=== PATIENT | female | born 1935 | race Caucasian/White ===

== ENCOUNTER 2022-03-11 07:46 | Outpatient (CLI) | payer MEDICARE, SELFPAY | END 2022-03-11 07:47 | disposition home or self-care (01) | LOC: RAD 07:47 | PROVIDERS: PCP Internal Medicine; Visit Provider Internal Medicine | DX: I71.2 Thoracic aortic aneurysm, without rupture (principal); I34.0 Nonrheumatic mitral (valve) insufficiency; I07.1 Rheumatic tricuspid insufficiency | CPT/HCPCS: 93306 ==

== ENCOUNTER 2022-03-24 09:45 | Outpatient (RCR) | payer MEDICARE, SELFPAY ==
--- NOTE | 2022-03-14 15:13 | PT.OPEX ---
PT [place] Outpatient Eval PT [facility] Outpatient Eval Start: 03/14/22 14:17 Freq: Status: Active Protocol: Document 03/14/22 14:25 NMK (Rec: 03/14/22 15:10 NMK [id number]) E-signed By Francis Israel DPT Physical Therapy Outpatient Evaluation Insurance Information Recert Due Date 06/14/22 Insurance Name Medicare B Medical Diagnosis Cervicalgia; Other chronic pain Treating Diagnosis Neck pain; R shoulder pain; Decreased R shoulder ROM Referring Neema Ventura MD Subjective Subjective 86 y.o. female pt presents with primary c/o R shoulder pain and neck pain that began in April of 2020 after being hospitalized with COVID. She reports after she got home her neck and shoulder began to bother her, with her shoulder pain being more significant than her neck pain. Her pain is significant at night and it hurts to lay on her R side because of it. It also makes sleeping hard because she wakes up at night from the pain. Currently, aggravating activities include sleeping, laying on her side, reaching behind her back, and lifting. She reports that she also feels challenged in her ability to complete her exercises classes as she does get pain in that shoulder when working out. She denies numbness, tingling, or any changes in sensation in her L UE at this time. She has tried self massage and it can sometimes help in moment. Current Work Status Retired Precautions Therapy Limitations/Systems Review Not Limited Objective Other/Pertinent Objective MMT: L/R Shoulder flexion: 5/4* Shoulder abduction: 5/4* Shoulder 90-90 ER: 5/4+ Shoulder 90-90 IR: 5/4+ Shoulder ER: 5/5 Shoulder IR: 5/5 *indicates pain present with resisted testing ROM Shoulder flexion L: WNL and pain free R: 125 degrees Shoulder abduction L: 150+ R: 150+ Shoulder IR and ER are WNL in bilateral LE at this time. Palpation: TTP present over R periscapular muscles and anterior cuff/biceps tendon area. 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 Impairments related to current health condition include shoulder pain, shoulder weakness, and decreased shoulder ROM. These impairments contribute to decreased ability to perform ADL's involving her R shoulder including reaching, lifting, pushing, and sleeping. Examination of body systems including structures, functions, activity limitations and participation restrictions have been addressed. Skilled PT is recommended in order to improve the patient's mobility and restore their baseline level of function. Within session patient tolerating shoulder flexion exercises as well as scapular strengthening exercises without reports of increased pain. Primary Functional Limitations Sleeping, reaching behind, lifting Plan of Care Rehabilitation Potential Good Physical Therapy Goals At or before 06/14/2022... 1. Pt will report <3/10 pain while sleeping at night and wake up less than 3 times per night from pain to show enhanced sleep quality 2. Pt will demonstrate shoulder active range of motion >150 degrees in involved upper extremity in order to show functional ability to reach into cabinets at home 3. Pt will participate in her exercises class without limitations and report less than 3/10 pain throughout 4. Pt will be independent in HEP in order to show ability to self manage condition after discharge Coordination/Communication With Referral Source Treatment Plan/Direct Interventions Joint Mobilization,Manual Therapy,Self-Care/Home Management,Therapeutic Exercises Frequency/Duration 1-2 per week for 8-12 weeks Patient Will Be Discharged From Therapy Completion of LTG(s),Skills Plateau,Independent w/HEP, Independently Progressing Evaluation Billing Untimed Code Treatment Minutes 25 Complexity Moderate Certification Information Physician Comment/Change Comment or Changes Physician NPI Number #
== END 2022-05-05 14:25 | disposition home or self-care (01) ==
PROVIDERS: PCP Internal Medicine; Visit Provider Internal Medicine
DX: M54.2 Cervicalgia (principal); Z51.89 Encounter for other specified aftercare
CPT/HCPCS: 97110; 97162

== ENCOUNTER 2022-05-12 13:39 | Outpatient (CLI) | payer MEDICARE, SELFPAY | END 2022-05-12 13:40 | disposition home or self-care (01) | LOC: NFLDUCREF 05-20 08:58 | PROVIDERS: PCP Internal Medicine; Visit Provider Student in an Organized Health Care Education/Training Program | DX: R35.0 Frequency of micturition (principal); N39.0 Urinary tract infection, site not specified | CPT/HCPCS: 87086 ==

== ENCOUNTER 2022-05-15 14:52 | Emergency (ER) | payer MEDICARE, SELFPAY ==
[2022-05-15 14:59] VITALS: BP 135/64; PULSE 71; RESP 14; TEMP 36.2; O2SAT 100; BMI 20.5
[2022-05-15 15:20] LABS: Appearance Urine Clear (Clear); Bilirubin Urine Negative (Negative); Blood Urine Negative (Negative); Color Urine Yellow (Yellow); Glucose Urine Negative (Negative); Ketones Urine Negative (Negative); Leukocyte Esterase Urine 3+ (Negative); Nitrite Urine Negative (Negative); Protein Urine Negative (Negative); pH Urine 6.5 (5.0-8.5)
--- NOTE | 2022-05-15 15:31 | ED.ABDPAIN ---
HPI - Abdominal Pain General Date Seen: 05/15/22 Chief Complaint: Abdominal Pain Stated Complaint: Lower Abdominal Pain Time Seen by Provider: 05/15/22 15:00 Source: patient Mode of arrival: ambulatory Limitations: no limitations History of Present Illness HPI narrative: Patient is a very nice lady seen in room 7 she has a history of suprapubic discomfort, that is been of ongoing for the last 3-4 days, she was seen in urgent care 3 days ago and started on Macrobid for this. She said this is really not changed at all the only thing that is help this she took some Tylenol before she came in. She describes the pain as crampy lower down suprapubic in nature, with no radiation. She has had no fevers or chills no, back pain no diarrhea, no redness, no coughing wheezing shortness of breath or sore throat. She has had multiple UTIs in the past and antibiotic seemingly of always worked well though she has never been on Macrobid previously MD elicited complaint: abdominal pain Pertinent past history: past UTI Onset (ago): day(s) (4) Pain Consistency: constant Location: suprapubic Severity: moderate Quality: aching and fullness Radiation: none Migration to: no migration Exacerbating factors: movement Relieving factors: medication (acetaminophen) Associated symptoms: denies other symptoms Treatments prior to arrival: other (acetaminophen) Related Data Home Medications Medication Instructions Recorded Confirmed amlodipine 2.5 mg tablet 2.5 mg PO .Bedtime 02/28/22 05/12/22 ascorbic acid (vitamin C) 500 mg 1 g PO DAILY 02/28/22 05/12/22 tablet aspirin 81 mg tablet,delayed 81 mg PO DAILY 02/28/22 05/12/22 release calcium carbonate 500 mg calcium 600 mg PO DAILY 02/28/22 05/12/22 (1,250 mg) tablet latanoprost 0.005 % eye drops 1 drp ophthalmic (eye) .Bedtime 02/28/22 05/12/22 melatonin 3 mg capsule 3-5 mg PO .Bedtime as needed PRN 02/28/22 05/12/22 simvastatin 10 mg tablet 10 mg PO .Bedtime 02/28/22 05/12/22 Previous Rx's Medication Instructions Recorded nitrofurantoin 100 mg PO Q12H 5 days #10 caps 05/12/22 monohydrate/macrocrystals 100 mg capsule (Macrobid) cephalexin 250 mg tablet 250 mg PO TID 7 days #21 tabs 05/15/22 Allergies Allergy/AdvReac Type Severity Reaction Status Date / Time lidocaine Allergy Severe shaking Verified 05/10/22 13:31 Sulfa drugs Allergy Unknown unknown Uncoded 05/10/22 13:31 childhood rxn Review of Systems Status of ROS Reports: 10 or more systems reviewed and unremarkable except as noted in History and below PFSH PFS Medical History History of giant cell arteritis (2016) History of pulmonary embolism (2019) Surgical History History of appendectomy (1949) History of bilateral cataract extraction (2020) History of section (1960) History of tonsillectomy (1947) History of tympanostomy (1971) Social History Smoking Status: Never smoker Exam Narrative: Exam Narrative: . On examination room 7 she is here with a friend/family member speaking to me normally, her pupils equal round reactive to light there is no scleral icterus or redness her TMs are normal her oropharynx normal there is no adenopathy anterior posterior chains, her neck is supple full range of motion is elicited, oropharynx is normal, TMs are normal, neck is supple, chest is clear heart sounds are normal, abdomen is soft is some mild tenderness in her suprapubic left greater than right notable. No CVA tenderness, no organomegaly. Const: Vital Signs, click to edit/add: Vital Signs - 24 hr 05/15/22 14:59 05/15/22 16:24 Temperature 97.1 F L 97.1 F L Pulse Rate [Pulse Oximeter] 71 71 Respiratory Rate 14 14 Blood Pressure [Le ft Upper Arm] 135/64 135/64 Pulse Oximetry 100 Oxygen Delivery Me thod Room Air Documenting provider has reviewed patient's vital signs: yes Course Course Hospital Course: I went in and talked to the patient, her UA now is clearly positive for UTI, given her pain isn't so bad, and her laboratory work otherwise her basic and her CBC were normal I think we can hold off on the CT scan, I think a better antibiotic may be use of Keflex, she has been on this before and it has worked well, we will try her with a dose now and then 250 mg p.o. t.i.d. for 7 days, informed consent risks benefits and side effects, if she has worsening I would like to see her back here, she was more than happy with this plan. Vital Signs Vital signs: Initial Vital Signs Temperature 97.1 F L 05/15/22 14:59 Temperature Source Temporal Artery Scan 05/15/22 14:59 Pulse Rate 71 05/15/22 14:59 Pulse Rhythm 05/15/22 14:59 Respiratory Rate 14 05/15/22 14:59 Blood Pressure 135/64 05/15/22 14:59 Blood Pressure Mean 87 05/15/22 14:59 Blood Pressure Position Sitting 05/15/22 14:59 Pulse Oximetry 100 05/15/22 14:59 Oxygen Delivery Method 05/15/22 14:59 Vital Signs Temperature 97.1 F L 05/15/22 14:59 Pulse Rate 71 05/15/22 14:59 Respiratory Rate 14 05/15/22 14:59 Blood Pressure 135/64 05/15/22 14:59 Pulse Oximetry 100 05/15/22 14:59 Oxygen Delivery Method 05/15/22 14:59 Temperature 97.1 F L 05/15/22 16:24 Pulse Rate 71 05/15/22 16:24 Respiratory Rate 14 05/15/22 16:24 Blood Pressure 135/64 05/15/22 16:24 Pulse Oximetry 100 05/15/22 14:59 Oxygen Delivery Method 05/15/22 14:59 MDM - Abdominal Pain MDM Narrative Medical decision making narrative: Patient is seen she is in no apparent distress, I did review with her recent visit her cultures were negative, she had really no evidence on the UA of a UTI, During the evaluation of this patient I considered multiple differential diagnosis including life-threatening differentials which are appendicitis, aortic aneurysm, mesenteric ischemia, bowel perforation, ectopic , volvulus and bowel obstruction, other differential diagnosis include but are not limited to inflammatory bowel disease, cholecystitis, pancreatitis, hepatitis, gastritis, GERD, diverticulitis, peptic ulcer disease, pyelonephritis/UTI, renal colic/stone, pelvic inflammatory disease, cervicitis, endometritis, intrauterine , dysfunctional uterine bleeding, ovarian cyst/torsion, spontaneous as well as other etiologies Differential Diagnosis Differential diagnosis: Likely abdominal pain, acute appendicitis, calculus of kidney, constipation, diverticulitis, endometriosis, gastroenteritis, pancreatitis and small bowel obstruction Medical Records Attestation: I reviewed the patient's medical records. Lab Data Attestation: I reviewed the patient's lab results. Labs: Lab Results 05/15/22 05/15/22 05/15/22 Range/Units 15:15 15:40 15:40 WBC 5.78 (4.50-11.00) K/uL RBC 4.30 (4.00-5.20) m/uL Hgb 12.6 (12.0-16.0) gm/dL Hct 38.4 (33.0-51.0) % MCV 89 (80-100) fL MCH 29 (26-34) pg MCHC 33 (32-36) gm/dL RDW Coeff of [place] 12.4 (11.5-15.5) % Plt Count 267 (140-440) K/uL Neut % (Auto) 50.2 (42.0-72.0) % Lymph % (Auto) 37.2 (20-44) % [place] % (Auto) 9.3 (0.0-11.0) % Eos % (Auto) 2.8 (0.0-7.0) % Baso % (Auto) 0.3 (0.0-3.0) % Neut # (Auto) 2.90 (1.7-7.0) K/uL Lymph # (Auto) 2.15 (0.90-2.90) K/uL [place] # (Auto) 0.50 (0.00-0.90) K/UL Eos # (Auto) 0.16 (0.00-0.50) K/uL Baso # (Auto) 0.02 (0.00-0.30) K/uL Abs Immat Gran (auto) 0.01 (0.00-0.30) K/uL Sodium 138 (135-149) mmol/L Potassium 3.8 (3.6-5.1) mmol/L Chloride 104 (96-114) mmol/L Carbon Dioxide 28 (20-32) mmol/L BUN 20 (7-30) mg/dL Creatinine 0.8 (0.5-1.5) mg/dL Estimated Creat Clear 33.12 Estimated GFR 73 ml/min Glucose 98 (60-115) mg/dL Calcium 8.9 (8.4-10.6) mg/dL C-Reactive Protein 3.5 H (0.5-1.0) mg/dL Urine Color Yellow (Yellow) Urine Appearance Clear (Clear) Urine pH 6.5 (5.0-8.5) Ur Specific [place] 1.020 (1.000-1.030) Urine Protein Negative (Negative) Urine Glucose (UA) Negative (Negative) Urine Ketones Negative (Negative) Urine Blood Negative (Negative) Urine Nitrite Negative (Negative) Urine Bilirubin Negative (Negative) Urine Urobilinogen 1.0 (0.2-1.0) Ur Leukocyte Esterase 3+ A (Negative) Urine RBC 0-2 (0-2) Urine WBC 10-25 A (0-5) Ur Squamous Epith Cells Few (None-Few) Urine Bacteria Few A (None) Discharge Plan Discharge Clinical Impression: Acute UTI Patient Disposition: Home w/ Parent or Adult Condition: Stable Instructions: Urinary Tract Infection in Older Adults (ED) Additional Instructions: Home rest use of antibiotic as directed, you can either pick it up later today or tomorrow. I gave you a dose here. You may use Tylenol 500 to a 1000 mg twice daily, to help you with the discomfort. Follow up here if increasing abdominal pain fevers chills or sweats, but her UA really did look like it was an infection. Prescriptions: New cephalexin 250 mg tablet 250 mg PO TID 7 Days Qty: 21 0RF No Action nitrofurantoin monohyd/m-cryst [Macrobid] 100 mg capsule 100 mg PO Q12H 5 Days Qty: 10 0RF Rx Instructions: must administer with a meal/food melatonin 3 mg capsule 3-5 mg PO .Bedtime as needed PRN ascorbic acid (vitamin C) 500 mg tablet 1 g PO DAILY calcium carbonate 500 mg calcium (1,250 mg) tablet 600 mg PO DAILY simvastatin 10 mg tablet 10 mg PO .Bedtime amlodipine 2.5 mg tablet 2.5 mg PO .Bedtime aspirin 81 mg tablet,delayed release (DR/EC) 81 mg PO DAILY latanoprost 0.005 % drops 1 drp ophthalmic (eye) .Bedtime Follow Up/Referrals: Neema Koenig MD [Primary Care Provider] - Stand Alone Forms: [email or web address] Info Instructions
[2022-05-15 15:32] LABS: Bacteria Urine Few; RBC Urine 0-2 (0-2); Squamous Epithelial Cell Urine Few (None-Few)
[2022-05-15] MEDS: 0.9 % SODIUM CHLORIDE 500 ML 500 ML IV (15:40)
[2022-05-15 15:49] LABS: Basophils Absolute Auto 0.02 K/uL (0.00-0.30); Basophils Percent Auto 0.3 % (0.0-3.0); Eosinophils Absolute Auto 0.16 K/uL (0.00-0.50); Eosinophils Percent Auto 2.8 % (0.0-7.0); Hematocrit 38.4 % (33.0-51.0); Hemoglobin* 12.6 gm/dL (12.0-16.0); Immature Granulocytes Abs Auto 0.01 K/uL (0.00-0.30); Lymphocytes Absolute Auto 2.15 K/uL (0.90-2.90); Lymphocytes Percent Auto 37.2 % (20-44); Mean Corpuscular HGB Conc 33 gm/dL (32-36); Mean Corpuscular Hemoglobin 29 pg (26-34); Mean Corpuscular Volume 89 fL (80-100); Monocytes Percent Auto 9.3 % (0.0-11.0); Neutrophils Percent Auto 50.2 % (42.0-72.0); Platelet Count* 267 K/uL (140-440); RDW Coefficient of Variation % 12.4 % (11.5-15.5); White Blood Count* 5.78 K/uL (4.50-11.00)
[2022-05-15 16:05] LABS: Slide Review Reflex No
[2022-05-15 16:07] LABS: Chloride* 104 mmol/L (96-114); Potassium* 3.8 mmol/L (3.6-5.1); Sodium* 138 mmol/L (135-149)
[2022-05-15 16:10] LABS: Creatinine* 0.8 mg/dL (0.5-1.5); Est. Creatinine Clearance* 33.12; Estimated Glomerular Filt Rate 73 ml/min
[2022-05-15 16:11] LABS: Blood Urea Nitrogen* 20 mg/dL (7-30); Calcium* 8.9 mg/dL (8.4-10.6); Carbon Dioxide* 28 mmol/L (20-32); Glucose* 98 mg/dL (60-115)
[2022-05-15 16:13] LABS: C Reactive Protein* 3.5 mg/dL (0.5-1.0)
[2022-05-15] MEDS: cephALEXin 500 MG CAPSULE PO (16:15)
[2022-05-15 16:24] VITALS: BP 135/64; PULSE 71; RESP 14; TEMP 36.2
== END 2022-05-15 16:25 | disposition home or self-care (01) ==
PROVIDERS: Emergency Provider Family Medicine; PCP Internal Medicine
DX: N39.0 Urinary tract infection, site not specified (principal)
CPT/HCPCS: 36415; 80048; 81003; 81015; 85025; 86140; 87086; 87186; 99283; 99284; A9270; J7120

== ENCOUNTER 2022-05-23 05:14 | Emergency (ER) | payer MEDICARE, SELFPAY ==
[2022-05-23 05:24] VITALS: BP 161/68; PULSE 85; RESP 16; TEMP 36.1; O2SAT 96
--- NOTE | 2022-05-23 05:42 | ED.GIBLEED ---
HPI - GI Bleed General Chief complaint: GI Bleed Stated complaint: Rectal bleeding with clot Time Seen by Provider: 05/23/22 05:29 History of Present Illness HPI Narrative: 86-year-old woman presenting to the emergency department accompanied by daughter with concern of rectal bleeding. Recently initiated on treatment for a urinary tract infection. By my review of records, looks like was initiated on nitrofurantoin and then transitioned to cephalexin. Cultures grew Pseudomonas which was sensitive to cephalexin. Yesterday the evening after out for [place] came back and started having copious diarrhea with some ?just hurts? mid abdominal pain. She still has some pelvic discomfort that she would associate with this urinary tract infection. No dysuria described. She does not endorse having have a history of hemorrhoids and is not sure that she has diverticular disease. With diarrhea this morning noted a gush of blood in the stool and then a subsequent clot. Was briefly lightheaded around that episode. Has not had any fever. No exposures noted. Related Data Home Medications Medication Instructions Recorded Confirmed amlodipine 2.5 mg tablet 2.5 mg PO .Bedtime 02/28/22 05/12/22 ascorbic acid (vitamin C) 500 mg 1 g PO DAILY 02/28/22 05/12/22 tablet aspirin 81 mg tablet,delayed 81 mg PO DAILY 02/28/22 05/12/22 release calcium carbonate 500 mg calcium 600 mg PO DAILY 02/28/22 05/12/22 (1,250 mg) tablet latanoprost 0.005 % eye drops 1 drp ophthalmic (eye) .Bedtime 02/28/22 05/12/22 melatonin 3 mg capsule 3-5 mg PO .Bedtime as needed PRN 02/28/22 05/12/22 simvastatin 10 mg tablet 10 mg PO .Bedtime 02/28/22 05/12/22 Previous Rx's Medication Instructions Recorded cephalexin 250 mg tablet 250 mg PO TID 7 days #21 tabs 05/15/22 Allergies Allergy/AdvReac Type Severity Reaction Status Date / Time lidocaine Allergy Severe shaking Verified 05/10/22 13:31 Sulfa drugs Allergy Unknown unknown Uncoded 05/10/22 13:31 childhood rxn Review of Systems Status of ROS: Reports: 10 or more systems reviewed and unremarkable except as noted in History and below [facility] Medical History History of giant cell arteritis (2017) History of pulmonary embolism (2019) Surgical History History of appendectomy (1949) History of bilateral cataract extraction (2020) History of section (1960) History of tonsillectomy (1947) History of tympanostomy (1971) Social History Smoking Status: Never smoker Second hand tobacco smoke exposure: No How often do you have a drink containing alcohol: never AUDIT-C Alcohol total score: 0 Non-prescribed substance use: denies use service: No Exam Narrative: Exam Narrative: Pleasant. NAD. Sometimes places her hands on her abdomen as if a little uncomfortable. Skin is warm and dry well perfused. Extremities are without edema. Oropharynx is moist. Mucous membranes are not pale. Cardiovascular with regular rate and rhythm Lungs are clear Abdomen with normal to hyperactive bowel sounds. Protuberant. Soft. It a little tender without peritoneal signs in the mid left abdomen and suprapubic. Rectal exam showing reddish dried blood perianal tissues and maroon clotting blood at the end of the anoscope Small old hemorrhoidal tissue at 6:00 Const: Vital Signs, click to edit/add: Vital Signs - 24 hr 05/23/22 05:24 05/23/22 07:30 05/23/22 08:00 Temperature 97.0 F L Pulse Rate [Left P ulse Oximeter] 85 78 74 Respiratory Rate 16 18 Blood Pressure [Ri ght Upper Arm] 161/68 H 169/67 H 166/72 H Pulse Oximetry 96 95 96 Oxygen Delivery Me thod Room Air Room Air Room Air 05/23/22 08:30 Temperature Pulse Rate [Left P ulse Oximeter] 92 Respiratory Rate 18 Blood Pressure [Ri ght Upper Arm] 154/70 H Pulse Oximetry 95 Oxygen Delivery Me thod Room Air Documenting provider has reviewed patient's vital signs: yes Course Course Hospital Course: IV is initiated. Type and screen collected ordered for TXA and pantoprazole. Differential does include diverticular bleed, internal hemorrhoidal bleeding, colitis, AVM bleed Did not feel she needed anything for pain or nausea noting a ?high pain tolerance?. Reevaluation(s) Reevaluation #1: Was up to urinate. Only small staining of blood. Abdominal discomfort improved. Generally feels better. Vital Signs Vital signs: Initial Vital Signs Temperature 97.0 F L 05/23/22 05:24 Temperature Source Temporal Artery Scan 05/23/22 05:24 Pulse Rate 85 05/23/22 05:24 Pulse Rhythm 05/23/22 05:24 Respiratory Rate 16 05/23/22 05:24 Blood Pressure 161/68 H 05/23/22 05:24 Blood Pressure Mean 99 05/23/22 05:24 Blood Pressure Position Semi-Fowlers 05/23/22 05:24 Pulse Oximetry 96 05/23/22 05:24 Oxygen Delivery Method 05/23/22 05:24 Vital Signs Temperature 97.0 F L 05/23/22 05:24 Pulse Rate 85 05/23/22 05:24 Respiratory Rate 16 05/23/22 05:24 Blood Pressure 161/68 H 05/23/22 05:24 Pulse Oximetry 96 05/23/22 05:24 Oxygen Delivery Method 05/23/22 05:24 Temperature 97.0 F L 05/23/22 05:24 Pulse Rate 92 05/23/22 08:30 Respiratory Rate 18 05/23/22 08:30 Blood Pressure 154/70 H 05/23/22 08:30 Pulse Oximetry 95 05/23/22 08:30 Oxygen Delivery Method 05/23/22 08:30 MDM - GI Bleed MDM Narrative Medical decision making narrative: Bleeding at this time is settled. She has not had any more diarrheal episodes. Would like a collection for C diff. Did manage to urinate. CT scan of abdomen and pelvis with IV contrast does confirm edematous bowel particularly left and lower colon. I do review these images. Radiology review is below IMPRESSION: Wall thickening and inflammation involving the descending and sigmoid colon likely representing nonspecific infectious/inflammatory colitis. No evidence of pneumatosis or portal venous gas. There are also multiple diverticula in this region but acute diverticulitis is felt less likely although not entirely excluded. No evidence of adjacent fluid collection or perforation. I do think colitis is consistent with clinical picture Pending yet stool collection for Clostridium difficile. If this is positive will need treatment. Would then of course not take diarrheal aide/antispasmodics. Medical Records Attestation: I reviewed the patient's medical records. Lab Data Attestation: I reviewed the patient's lab results. Labs: Lab Results 05/23/22 05/23/22 05/23/22 Range/Units 05:45 06:10 06:10 WBC 12.70 H (4.50-11.00) K/uL RBC 4.41 (4.00-5.20) m/uL Hgb 12.7 (12.0-16.0) gm/dL Hct 38.6 (33.0-51.0) % MCV 88 (80-100) fL MCH 29 (26-34) pg MCHC 33 (32-36) gm/dL RDW Coeff of [place] 12.4 (11.5-15.5) % Plt Count 266 (140-440) K/uL Neut % (Auto) 78.4 H (42.0-72.0) % Lymph % (Auto) 15.0 L (20-44) % [place] % (Auto) 5.4 (0.0-11.0) % Eos % (Auto) 0.4 (0.0-7.0) % Baso % (Auto) 0.2 (0.0-3.0) % Neut # (Auto) 10.00 H (1.7-7.0) K/uL Lymph # (Auto) 1.90 (0.90-2.90) K/uL [place] # (Auto) 0.70 (0.00-0.90) K/UL Eos # (Auto) 0.10 (0.00-0.50) K/uL Baso # (Auto) 0.00 (0.00-0.30) K/uL Abs Immat Gran (auto) 0.10 (0.00-0.30) K/uL Imm/Tot Granulo (auto) 0.6 % Sodium 140 (135-149) mmol/L Potassium 3.7 (3.6-5.1) mmol/L Chloride 107 (96-114) mmol/L Carbon Dioxide 25 (20-32) mmol/L BUN 18 (7-30) mg/dL Creatinine 0.8 (0.5-1.5) mg/dL Estimated GFR 73 ml/min Glucose 105 (60-115) mg/dL Calcium 8.8 (8.4-10.6) mg/dL Total Bilirubin (0.1-1.5) mg/dL Direct Bilirubin (0.0-0.5) mg/dL AST (12-35) U/L ALT (4-35) U/L Alkaline Phosphatase (40-150) U/L C-Reactive Protein 1.0 (0.5-1.0) mg/dL Total Protein (6.0-8.3) g/dL Albumin (3.3-5.0) g/dL Urine Color (Yellow) Urine Appearance (Clear) Urine pH (5.0-8.5) Ur Specific [place] (1.000-1.030) Urine Protein (Negative) Urine Glucose (UA) (Negative) Urine Ketones (Negative) Urine Blood (Negative) Urine Nitrite (Negative) Urine Bilirubin (Negative) Urine Urobilinogen (0.2-1.0) Ur Leukocyte Esterase (Negative) Urine RBC (0-2) Urine WBC (0-5) Ur Squamous Epith Cells (None-Few) Urine Bacteria (None) SARS-CoV-2 (PCR) Negative SARS-CoV-2 (Negative) Blood Type Antibody Screen 05/23/22 05/23/22 05/23/22 Range/Units 06:10 06:10 07:14 WBC (4.50-11.00) K/uL RBC (4.00-5.20) m/uL Hgb (12.0-16.0) gm/dL Hct (33.0-51.0) % MCV (80-100) fL MCH (26-34) pg MCHC (32-36) gm/dL RDW Coeff of [place] (11.5-15.5) % Plt Count (140-440) K/uL Neut % (Auto) (42.0-72.0) % Lymph % (Auto) (20-44) % [place] % (Auto) (0.0-11.0) % Eos % (Auto) (0.0-7.0) % Baso % (Auto) (0.0-3.0) % Neut # (Auto) (1.7-7.0) K/uL Lymph # (Auto) (0.90-2.90) K/uL [place] # (Auto) (0.00-0.90) K/UL Eos # (Auto) (0.00-0.50) K/uL Baso # (Auto) (0.00-0.30) K/uL Abs Immat Gran (auto) (0.00-0.30) K/uL Imm/Tot Granulo (auto) % Sodium (135-149) mmol/L Potassium (3.6-5.1) mmol/L Chloride (96-114) mmol/L Carbon Dioxide (20-32) mmol/L BUN (7-30) mg/dL Creatinine (0.5-1.5) mg/dL Estimated GFR ml/min Glucose (60-115) mg/dL Calcium (8.4-10.6) mg/dL Total Bilirubin 1.0 (0.1-1.5) mg/dL Direct Bilirubin 0.0 (0.0-0.5) mg/dL AST 23 (12-35) U/L ALT 18 (4-35) U/L Alkaline Phosphatase 66 (40-150) U/L C-Reactive Protein (0.5-1.0) mg/dL Total Protein 6.5 (6.0-8.3) g/dL Albumin 4.1 (3.3-5.0) g/dL Urine Color Yellow (Yellow) Urine Appearance Clear (Clear) Urine pH 7.5 (5.0-8.5) Ur Specific [place] 1.015 (1.000-1.030) Urine Protein Negative (Negative) Urine Glucose (UA) Negative (Negative) Urine Ketones Negative (Negative) Urine Blood Trace-lysed A (Negative) Urine Nitrite Negative (Negative) Urine Bilirubin Negative (Negative) Urine Urobilinogen 0.2 (0.2-1.0) Ur Leukocyte Esterase Trace A (Negative) Urine RBC 0-2 (0-2) Urine WBC 0-2 (0-5) Ur Squamous Epith Cells None (None-Few) Urine Bacteria None (None) SARS-CoV-2 (PCR) (Negative) Blood Type B Positive Antibody Screen NEGATIVE Discharge Plan Discharge Clinical Impression: Colitis, Acute lower gastrointestinal bleeding Patient Disposition: Home w/ Parent or Adult Condition: Improved Additional Instructions: Focus on hydration. Soup broths, diluted juice, Jell-O. We will let you know if the Clostridium difficile test is positive as that does change a few things. As long as it is negative you could take a medication like loperamide for diarrhea. Otherwise be seen for increasing persistent abdominal pain, worsening diarrhea, worsening bleeding, associated fever. Prescriptions: No Action melatonin 3 mg capsule 3-5 mg PO .Bedtime as needed PRN ascorbic acid (vitamin C) 500 mg tablet 1 g PO DAILY calcium carbonate 500 mg calcium (1,250 mg) tablet 600 mg PO DAILY simvastatin 10 mg tablet 10 mg PO .Bedtime amlodipine 2.5 mg tablet 2.5 mg PO .Bedtime aspirin 81 mg tablet,delayed release (DR/EC) 81 mg PO DAILY latanoprost 0.005 % drops 1 drp ophthalmic (eye) .Bedtime cephalexin 250 mg tablet 250 mg PO TID 7 Days Qty: 21 0RF Follow Up/Referrals: Neema Koenig MD [Primary Care Provider] - Stand Alone Forms: [employer] Info Instructions
--- NOTE | 2022-05-23 05:44 | CRLHL7_ITS ---
For Patients: As a result of the Century Cures Act, medical imaging exams and procedure reports are released immediately into your electronic medical record. You may view this report before your referring provider. If you have questions, please contact your health care provider. INDICATION: LOWER GI BLEED, MID ABDOMEN PAIN , DIAHRREA TECHNIQUE: CT abdomen and pelvis with 55 cc Omnipaque 370 IV contrast. COMPARISON: None. FINDINGS: The liver is normal in size, shape and attenuation. Low-density hepatic lesions most likely representing cysts with the largest measuring 3.3 cm. The more subcentimeter low-density hepatic lesions are too small to characterize. Gallbladder and biliary tree are normal. The spleen, adrenal glands and pancreas are within normal limits. Subcentimeter renal hypodensities are too small to characterize. No hydronephrosis. Unremarkable appearing bladder. No evidence of bowel obstruction. There is colonic wall thickening and inflammation involving the descending sigmoid colon, suspicious for colitis. No evidence of pneumatosis or portal venous gas. Multiple colonic diverticula predominantly within the descending and sigmoid region. No significant free fluid and no free air. Pelvic organs are unremarkable. Mild bibasilar subpleural reticulation may represent atelectasis or fibrosis. Suspect mild-moderate pulmonary emphysema. Mild multilevel degenerative spondylosis without acute fracture or aggressive osseous lesion. IMPRESSION: Wall thickening and inflammation involving the descending and sigmoid colon likely representing nonspecific infectious/inflammatory colitis. No evidence of pneumatosis or portal venous gas. There are also multiple diverticula in this region but acute diverticulitis is felt less likely although not entirely excluded. No evidence of adjacent fluid collection or perforation. Please note that all CT scans at this facility use dose modulation, iterative reconstruction, and/or weight-based dosing when appropriate to reduce radiation dose to as low as reasonably achievable. Dictated by Gerald Glass MD @ 05/23/2022 8:30:15 AM (Electronically Signed)
[2022-05-23 06:16] LABS: Basophils Percent Auto 0.2 % (0.0-3.0); Eosinophils Percent Auto 0.4 % (0.0-7.0); Hematocrit 38.6 % (33.0-51.0); Hemoglobin* 12.7 gm/dL (12.0-16.0); Immature Granulocytes Pct Auto 0.6 %; Mean Corpuscular HGB Conc 33 gm/dL (32-36); Mean Corpuscular Hemoglobin 29 pg (26-34); Mean Corpuscular Volume 88 fL (80-100); Monocytes Percent Auto 5.4 % (0.0-11.0); Neutrophils Percent Auto 78.4 % (42.0-72.0); Platelet Count* 266 K/uL (140-440); RDW Coefficient of Variation % 12.4 % (11.5-15.5); Red Blood Count 4.41 m/uL (4.00-5.20)
[2022-05-23 06:17] LABS: Slide Review Reflex No
[2022-05-23] MEDS: 0.9 % SODIUM CHLORIDE 1000 ml 1,000 ML IV (06:18)
[2022-05-23] MEDS: PANTOPRAZOLE SODIUM 40 MG INJ 80 MG IVP (06:18)
[2022-05-23] MEDS: TRANEXAMIC ACID 1,000 MG in 0.9 % SODIUM CHLORIDE 100 ml 100 ML 440 MG IVPB (06:19)
[2022-05-23 06:26] LABS: Albumin* 4.1 g/dL (3.3-5.0); Chloride* 107 mmol/L (96-114)
[2022-05-23 06:27] LABS: Potassium* 3.7 mmol/L (3.6-5.1); Sodium* 140 mmol/L (135-149)
[2022-05-23 06:29] LABS: Alanine Aminotransferase* 18 U/L (4-35); Alkaline Phosphatase* 66 U/L (40-150); Aspartate Amino Transferase* 23 U/L (12-35); Creatinine* 0.8 mg/dL (0.5-1.5); Estimated Glomerular Filt Rate 73 ml/min; Total Protein* 6.5 g/dL (6.0-8.3)
[2022-05-23 06:30] LABS: Blood Urea Nitrogen* 18 mg/dL (7-30); Carbon Dioxide* 25 mmol/L (20-32); Glucose* 105 mg/dL (60-115)
[2022-05-23 06:31] LABS: Calcium* 8.8 mg/dL (8.4-10.6)
[2022-05-23 06:36] LABS: SARS PCR* Negative SARS-CoV-2 (Negative)
[2022-05-23 07:30] VITALS: BP 169/67; PULSE 78; RESP 18; O2SAT 95
[2022-05-23 07:41] LABS: Appearance Urine Clear (Clear); Bilirubin Urine Negative (Negative); Blood Urine Trace-lysed (Negative); Color Urine Yellow (Yellow); Glucose Urine Negative (Negative); Ketones Urine Negative (Negative); Leukocyte Esterase Urine Trace (Negative); Nitrite Urine Negative (Negative); Protein Urine Negative (Negative); Specific Gravity Urine 1.015 (1.000-1.030); Urobilinogen Urine 0.2 (0.2-1.0); pH Urine 7.5 (5.0-8.5)
[2022-05-23 07:43] LABS: RBC Urine 0-2 (0-2); WBC Urine 0-2 (0-5)
[2022-05-23 08:00] VITALS: BP 166/72; PULSE 74; O2SAT 96
[2022-05-23 08:30] VITALS: BP 154/70; PULSE 92; RESP 18; O2SAT 95
--- NOTE | 2022-05-23 08:40 | ED.NURSE ---
pt feeling better, up to br. states no bleeding at this time.
== END 2022-05-23 09:37 | disposition home or self-care (01) ==
PROVIDERS: Emergency Provider Family Medicine; PCP Internal Medicine
DX: K92.2 Gastrointestinal hemorrhage, unspecified (principal)
CPT/HCPCS: 36415; 74177; 80048; 80076; 81001; 85025; 86140; 86850; 86900; 86901; 87493; 87635; 96365; 96375; 99284; C9113; J7030; Q9967

== ENCOUNTER 2022-05-26 08:04 | Outpatient (CLI) | payer MEDICARE, SELFPAY ==
[2022-05-26 09:10] LABS: C.Difficile Negative (Negative); CDIFFEPI 027 PRESUMPTIVE NEGATIVE (Negative)
== END 2022-05-26 08:05 | disposition home or self-care (01) ==
LOC: LAB 08:06
PROVIDERS: PCP Internal Medicine; Visit Provider Family Medicine
DX: K62.5 Hemorrhage of anus and rectum (principal); R19.7 Diarrhea, unspecified
CPT/HCPCS: 87493

== ENCOUNTER 2022-06-27 13:50 | Outpatient (CLI) | payer MEDICARE, SELFPAY ==
[2022-06-27 15:11] LABS: Cholesterol* 202 mg/dL (90-199)
[2022-06-27 15:12] LABS: HDL Cholesterol* 54 mg/dL (>=50); LDL Cholesterol Calculated 106 mg/dL (<100); Triglycerides* 212 mg/dL (40-149)
== END 2022-06-27 13:51 | disposition home or self-care (01) ==
LOC: NFLDREF 13:51
PROVIDERS: PCP Internal Medicine; Visit Provider Internal Medicine
DX: E78.5 Hyperlipidemia, unspecified (principal)
CPT/HCPCS: 80061

== ENCOUNTER 2022-07-28 16:24 | Outpatient (CLI) | payer MEDICARE, SELFPAY ==
[2022-07-28 17:38] LABS: Chloride* 104 mmol/L (96-114); Sodium* 139 mmol/L (135-149)
[2022-07-28 17:41] LABS: Blood Urea Nitrogen* 19 mg/dL (7-30); Carbon Dioxide* 28 mmol/L (20-32); Creatinine* 0.8 mg/dL (0.5-1.5); Estimated Glomerular Filt Rate 73 ml/min; Potassium* 3.8 mmol/L (3.6-5.1)
[2022-07-28 17:42] LABS: Glucose* 102 mg/dL (60-115)
[2022-07-28 17:44] LABS: Calcium* 9.2 mg/dL (8.4-10.6)
== END 2022-07-28 16:25 | disposition home or self-care (01) ==
LOC: NFLDREF 16:26
PROVIDERS: Visit Provider Internal Medicine
DX: R10.31 Right lower quadrant pain (principal); R10.32 Left lower quadrant pain
CPT/HCPCS: 80048

== ENCOUNTER 2022-08-01 13:39 | Outpatient (CLI) | payer MEDICARE, SELFPAY ==
--- NOTE | 2022-08-01 14:00 | CRLHL7_ITS ---
For Patients: As a result of the Century Cures Act, medical imaging exams and procedure reports are released immediately into your electronic medical record. You may view this report before your referring provider. If you have questions, please contact your health care provider. Indication: bilateral lower quadrant pain Technique: Postcontrast CT abdomen and pelvis. 53 cc Isovue 370 intravenous contrast. Please note that all CT scans at this facility use dose modulation, iterative reconstruction, and/or weight-based dosing when appropriate to reduce radiation dose to as low as reasonably achievable. Comparison: 05/23/2022 Findings: Mild dependent fibrotic change within both lower lobes. No pleural effusion. No free intraperitoneal air. Multiple simple intrahepatic cysts measuring up to 3.3 cm. Focal fat deposition within the liver adjacent to the falciform ligament. The pancreas is within normal limits. Normal gallbladder. No biliary obstruction. No splenomegaly. Stable nodularity of the left adrenal gland. Normal right adrenal gland. No solid renal mass or hydronephrosis. Atherosclerotic disease. No aneurysm or dissection. The stomach appears normal. Unremarkable small bowel. Normal bladder. The uterus is within normal limits. Multilevel degenerative changes. No acute fracture. Segmental wall thickening of the mid sigmoid colon is present with the sigmoid colon wall measuring up to 11 millimeters. Associated diverticular present. Mild adjacent inflammatory stranding in the surrounding fat. No bowel obstruction. There is a small pocket of fluid adjacent to the sigmoid colon and posterior to the left ovary measuring 2.0 cm.. Impression: Chronic sigmoid colon diverticulitis with perhaps mild superimposed acute inflammation. There is now a 2 millimeter circumscribed area of fluid adjacent to the sigmoid colon and posterior to the left ovary which may represent a small amount of inflammatory fluid. This is too small for percutaneous drainage. Mild inflammatory changes regarding the adjacent left ovary may also be present. Surgical consultation may be useful as indicated. Please note that all CT scans at this facility use dose modulation, iterative reconstruction, and/or weight-based dosing when appropriate to reduce radiation dose to as low as reasonably achievable. Dictated by Allen Moy MD @ 08/04/2022 10:24:27 AM (Electronically Signed)
== END 2022-08-01 13:40 | disposition home or self-care (01) ==
LOC: CT 13:42
PROVIDERS: PCP Internal Medicine; Visit Provider Internal Medicine
DX: R10.31 Right lower quadrant pain (principal); K57.32 Diverticulitis of large intestine without perforation or abscess without bleeding; R10.32 Left lower quadrant pain
CPT/HCPCS: 74177; Q9967

== ENCOUNTER 2022-08-19 08:03 | Outpatient (CLI) | payer MEDICARE, SELFPAY | END 2022-08-19 08:04 | disposition home or self-care (01) | LOC: AMB 11:20 | PROVIDERS: PCP Internal Medicine; Visit Provider Family Medicine | DX: R55 Syncope and collapse (principal); R42 Dizziness and giddiness | CPT/HCPCS: A0425; A0427 ==

== ENCOUNTER 2022-08-19 08:29 | Inpatient (IN) | payer MEDICARE, SELFPAY ==
[2022-08-19] VITALS (38 sets, daily range): BP systolic 96–152; BP diastolic 50–73; PULSE 72–93; RESP 16; TEMP 36.3–36.8; O2SAT 94–98; BMI 19.8; BMI 19.3
--- NOTE | 2022-08-19 08:52 | CRLHL7_ITS ---
For Patients: As a result of the Century Cures Act, medical imaging exams and procedure reports are released immediately into your electronic medical record. You may view this report before your referring provider. If you have questions, please contact your health care provider. Indication: Abdominal pain, vomited once, history of diverticulitis Technique: Volumetric multidetector CT images of the abdomen and pelvis were obtained after the administration of intravenous contrast. 86 cc Isovue 370 low osmolar intravenous contrast Comparison: CT abdomen and pelvis August 01, 2022 Findings: There is minimal basilar atelectasis and parenchymal scar. The liver is enlarged with cystic changes of the bilateral liver lobes. The portal vein is patent. The gallbladder is unremarkable without evidence of radiopaque calculus. There is no significant common biliary ductal dilatation or abrupt cut off. The spleen is normal in enhancement and size. There is moderate chronic gastritis change again seen. The pancreas is normal in enhancement without significant atrophy. The adrenal glands are unremarkable. The kidneys demonstrate preserved corticomedullary differentiation without evidence of obstructive uropathy. There is moderate stool seen throughout the proximal colon with redemonstration of focal thickening and pericolonic inflammation of the sigmoid colon with improved inflammatory changes from previous; however, there is new focal thickening and inflammation of the rectosigmoid colon from comparison with moderate peripheral inflammatory changes. The appendix is not well visualized. There is no significant mesenteric, retroperitoneal, or pelvic sidewall lymph nodes. The aorta is nonaneurysmal. There is no significant atherosclerotic disease appreciated. The solid pelvic viscera are grossly unremarkable. There is minimal fluid within the central pelvis. The anterior abdominal wall is intact without significant hernias. The lumbar vertebral body heights are grossly maintained with moderate to severe degenerative disc disease similar to previous exam. Impression: Improved inflammatory changes of the mid sigmoid colon from comparison with interval development of new focal thickening and pericolonic inflammation of the rectosigmoid colon, distal from previous site likely representing new acute and/or recurrent diverticulitis changes. Otherwise, stable appearance of the abdomen from comparison. Please note that all CT scans at this facility use dose modulation, iterative reconstruction, and/or weight-based dosing when appropriate to reduce radiation dose to as low as reasonably achievable. Dictated by Isaac Bearden MD @ 08/19/2022 11:08:38 AM (Electronically Signed)
[2022-08-19 09:04] LABS: Basophils Absolute Auto 0.01 K/uL (0.00-0.30); Basophils Percent Auto 0.1 % (0.0-3.0); Eosinophils Absolute Auto 0.01 K/uL (0.00-0.50); Eosinophils Percent Auto 0.1 % (0.0-7.0); Hematocrit 37.6 % (33.0-51.0); Immature Granulocytes Abs Auto 0.01 K/uL (0.00-0.30); Immature Granulocytes Pct Auto 0.1 %; Lactate* 0.7 mmol/L (0.5-1.9); Lymphocytes Percent Auto 10.9 % (20-44); Mean Corpuscular HGB Conc 32 gm/dL (32-36); Mean Corpuscular Hemoglobin 29 pg (26-34); Mean Corpuscular Volume 89 fL (80-100); Monocytes Percent Auto 6.6 % (0.0-11.0); Neutrophils Percent Auto 82.2 % (42.0-72.0); Platelet Count* 193 K/uL (140-440); RDW Coefficient of Variation % 13.2 % (11.5-15.5); Red Blood Count 4.21 m/uL (4.00-5.20); White Blood Count* 9.98 K/uL (4.50-11.00)
[2022-08-19 09:06] LABS: Slide Review Reflex No
[2022-08-19] MEDS: 0.9 % SODIUM CHLORIDE 500 ML 500 ML IV (09:09)
[2022-08-19 09:13] LABS: Appearance Urine Clear (Clear); Bilirubin Urine Negative (Negative); Blood Urine Trace-intact (Negative); Color Urine Yellow (Yellow); Glucose Urine Negative (Negative); Ketones Urine Trace (Negative); Leukocyte Esterase Urine Trace (Negative); Nitrite Urine Negative (Negative); Protein Urine 1+ (Negative); Specific Gravity Urine 1.015 (1.000-1.030); Urobilinogen Urine 0.2 (0.2-1.0); pH Urine 8.5 (5.0-8.5)
[2022-08-19 09:22] LABS: Albumin* 3.9 g/dL (3.3-5.0); Chloride* 106 mmol/L (96-114)
[2022-08-19 09:23] LABS: Potassium* 3.9 mmol/L (3.6-5.1); Sodium* 139 mmol/L (135-149)
[2022-08-19 09:25] LABS: Amylase* 66 U/L (18-89); Carbon Dioxide* 27 mmol/L (20-32); Creatinine* 0.7 mg/dL (0.5-1.5); Est. Creatinine Clearance* 32.39; Estimated Glomerular Filt Rate 85 ml/min; Total Protein* 6.7 g/dL (6.0-8.3)
[2022-08-19 09:26] LABS: Alanine Aminotransferase* 15 U/L (4-35); Alkaline Phosphatase* 61 U/L (40-150); Aspartate Amino Transferase* 20 U/L (12-35); Bilirubin Total* 1.5 mg/dL (0.1-1.5); Blood Urea Nitrogen* 16 mg/dL (7-30); Calcium* 8.5 mg/dL (8.4-10.6); Glucose* 111 mg/dL (60-115)
[2022-08-19 09:32] LABS: INR 1.05 (0.91-1.10); Prothrombin Time 14.4 Seconds
[2022-08-19 09:36] LABS: RBC Urine 0-2 (0-2); Squamous Epithelial Cell Urine Few (None-Few)
[2022-08-19 09:39] LABS: NT Pro B Type NatriureticPept* 158 pg/mL
[2022-08-19 09:53] LABS: PCR FLU A Negative PCR FLU A (Negative); PCR FLU B Negative PCR FLU B (Negative); PCR RSV Negative PCR RSV (Negative); SARS PCR* Negative SARS-CoV-2 (Negative)
[2022-08-19 09:57] LABS: C Reactive Protein* 5.5 mg/dL (0.5-1.0)
--- NOTE | 2022-08-19 10:33 | CRLHL7_ITS ---
For Patients: As a result of the Century Cures Act, medical imaging exams and procedure reports are released immediately into your electronic medical record. You may view this report before your referring provider. If you have questions, please contact your health care provider. INDICATION: Fall, head trauma, syncope, dizzy and vomiting. TECHNIQUE: CT head without contrast. No intravenous contrast was administered for this exam, however the patient received AP abdomen and pelvis CT 2 hours before the study with contrast administered at that time. COMPARISON: Head CT 09/03/2016 FINDINGS: CSF spaces: Contrast within the vascular system. With this limitation, no definite intracranial bleed seen. Brain parenchyma: No intracranial bleed or mass effect. Parsons-white differentiation is distinct. Moderate low density in the deep white matter. Skull base and calvarium: Mucosal thickening paranasal sinuses. Atherosclerosis. The visualized orbits are grossly unremarkable. No skull fractures. Posterior scalp hematoma. IMPRESSION: 1. Posterior scalp hematoma without calvarial fracture or intracranial bleed. 2. Nonspecific white matter disease, likely microangiopathy. Please note that all CT scans at this facility use dose modulation, iterative reconstruction, and/or weight-based dosing when appropriate to reduce radiation dose to as low as reasonably achievable. Dictated by Abdirizak Sow MD @ 08/19/2022 12:54:25 PM (Electronically Signed)
--- NOTE | 2022-08-19 10:34 | PC.NURSE ---
Patient now complaining of pain on left side of back of head. She had a fall this morning but denied pain or injury when she came in but now thinking this is from the fall. MD notified. No bump or lesion noticed by chief writer.
--- NOTE | 2022-08-19 10:43 | ED.GENADULT ---
HPI - General Adult General Chief complaint: Syncope/Fainted Stated complaint: Dizzy, snycope Time Seen by Provider: 08/19/22 08:31 History of Present Illness HPI narrative: Patient is a 86-year-old female who lives independently, she is here with her daughter. The patient reports that she felt really lightheaded and weak today. She had some lower abdominal pain as well. She had a recent history of diverticulitis for which she was treated, she has also had some type of intra-abdominal abscess. The patient has had no fevers chills or rigors, but does feel lightheaded when she stands. She apparently fell today and hit the back of her head no loss of consciousness, no significant headache. On her stay through the ER she complains a little bit more of a headache and should get a CT scan of her head. She completed her course of antibiotics for the diverticulitis and was feeling better. Has had no diarrhea, no chest pain, no shortness of breath. But does feel lightheaded. Related Data Home Medications Medication Instructions Recorded Confirmed ascorbic acid (vitamin C) 500 mg 500 mg PO BID 02/28/22 08/19/22 tablet aspirin 81 mg tablet,delayed 81 mg PO DAILY 02/28/22 08/19/22 release calcium carbonate 500 mg calcium 500 mg PO BIDWM 02/28/22 08/19/22 (1,250 mg) tablet melatonin 3 mg capsule 3 - 6 mg PO HS PRN 02/28/22 08/19/22 amlodipine 5 mg tablet 5 mg PO HS 08/19/22 08/19/22 simvastatin 10 mg tablet 10 mg PO HS 08/19/22 08/19/22 timolol maleate 0.5 % eye drops 1 drp ophthalmic (eye) DAILY 08/19/22 08/19/22 Allergies Allergy/AdvReac Type Severity Reaction Status Date / Time lidocaine Allergy Severe shaking Verified 08/19/22 08:32 Sulfa drugs Allergy Unknown unknown Uncoded 08/09/22 09:50 childhood rxn Review of Systems Status of ROS: Reports: 10 or more systems reviewed and unremarkable except as noted in History and below [facility] Medical History History of giant cell arteritis (2016) History of pulmonary embolism (2019) Surgical History History of appendectomy (1949) History of bilateral cataract extraction (2020) History of section (1960) History of tonsillectomy (1947) History of tympanostomy (1971) Social History Highest level of school completed/degree received: Bachelor's degree Smoking Status: Never smoker Second hand tobacco smoke exposure: No How often do you have a drink containing alcohol: never AUDIT-C Alcohol total score: 0 Non-prescribed substance use: denies use Caffeine: No Little interest or pleasure in doing things: not at all Feeling down, depressed, or hopeless: not at all service: No Exam Narrative: Exam Narrative: Objective vital signs are unremarkable Patient is alert or x3 HEENT is unremarkable no facial asymmetry neck is supple lungs are clear Heart rhythm regular 2/6 systolic murmur occasional ectopic beat noted Abdomen soft benign nontender except in her periumbilical area she has some mild tenderness, but no peritoneal findings. No masses. Extremities good perfusion neurologic nonfocal Const: Vital Signs, click to edit/add: Vital Signs - 24 hr 08/19/22 08:34 08/19/22 08:43 08/19/22 08:45 Temperature 97.6 F Pulse Rate 78 78 Pulse Rate [Left] Pulse Rate [Pulse Oximeter] 78 Pulse Rate [orthos tatic lying Pulse Oximeter] Pulse Rate [orthos tatic sitting Puls e Oximeter] Respiratory Rate 16 16 Blood Pressure 130/68 Blood Pressure [Ri ght Upper Arm] 134/68 Blood Pressure [or thostatic lying Ri ght Arm] Blood Pressure [or thostatic sitting Right Arm] Blood Pressure [or thostatic standing Right Arm] Pulse Oximetry 95 94 95 Oxygen Delivery Me thod Room Air 08/19/22 09:19 08/19/22 08:46 08/19/22 09:00 Temperature Pulse Rate 75 85 Pulse Rate [Left] 93 Pulse Rate [Pulse Oximeter] Pulse Rate [orthos tatic lying Pulse Oximeter] 79 Pulse Rate [orthos tatic sitting Puls e Oximeter] 87 Respiratory Rate Blood Pressure Blood Pressure [Ri ght Upper Arm] Blood Pressure [or thostatic lying Ri ght Arm] 137/66 Blood Pressure [or thostatic sitting Right Arm] 128/56 L Blood Pressure [or thostatic standing Right Arm] 96/63 Pulse Oximetry 96 96 Oxygen Delivery Me thod 08/19/22 09:05 08/19/22 09:15 08/19/22 09:17 Temperature Pulse Rate 79 86 86 Pulse Rate [Left] Pulse Rate [Pulse Oximeter] Pulse Rate [orthos tatic lying Pulse Oximeter] Pulse Rate [orthos tatic sitting Puls e Oximeter] Respiratory Rate Blood Pressure 137/66 128/56 L 96/63 Blood Pressure [Ri ght Upper Arm] Blood Pressure [or thostatic lying Ri ght Arm] Blood Pressure [or thostatic sitting Right Arm] Blood Pressure [or thostatic standing Right Arm] Pulse Oximetry 96 96 98 Oxygen Delivery Nm thod 08/19/22 09:30 08/19/22 09:32 08/19/22 10:00 Temperature Pulse Rate 75 76 75 Pulse Rate [Left] Pulse Rate [Pulse Oximeter] Pulse Rate [orthos tatic lying Pulse Oximeter] Pulse Rate [orthos tatic sitting Puls e Oximeter] Respiratory Rate Blood Pressure 133/60 Blood Pressure [Ri ght Upper Arm] Blood Pressure [or thostatic lying Ri ght Arm] Blood Pressure [or thostatic sitting Right Arm] Blood Pressure [or thostatic standing Right Arm] Pulse Oximetry 94 95 95 Oxygen Delivery Nm thod 08/19/22 10:02 08/19/22 10:22 08/19/22 10:30 Temperature Pulse Rate 72 73 Pulse Rate [Left] Pulse Rate [Pulse Oximeter] Pulse Rate [orthos tatic lying Pulse Oximeter] Pulse Rate [orthos tatic sitting Puls e Oximeter] Respiratory Rate Blood Pressure 139/57 L Blood Pressure [Ri ght Upper Arm] Blood Pressure [or thostatic lying Ri ght Arm] Blood Pressure [or thostatic sitting Right Arm] Blood Pressure [or thostatic standing Right Arm] Pulse Oximetry 96 98 Oxygen Delivery Nm thod 08/19/22 10:31 08/19/22 10:32 08/19/22 11:00 Temperature Pulse Rate 73 76 78 Pulse Rate [Left] Pulse Rate [Pulse Oximeter] Pulse Rate [orthos tatic lying Pulse Oximeter] Pulse Rate [orthos tatic sitting Puls e Oximeter] Respiratory Rate Blood Pressure 137/64 Blood Pressure [Ri ght Upper Arm] Blood Pressure [or thostatic lying Ri ght Arm] Blood Pressure [or thostatic sitting Right Arm] Blood Pressure [or thostatic standing Right Arm] Pulse Oximetry 95 96 95 Oxygen Delivery Nm thod 08/19/22 11:02 08/19/22 11:30 08/19/22 11:31 Temperature Pulse Rate 77 79 81 Pulse Rate [Left] Pulse Rate [Pulse Oximeter] Pulse Rate [orthos tatic lying Pulse Oximeter] Pulse Rate [orthos tatic sitting Puls e Oximeter] Respiratory Rate 16 Blood Pressure 134/64 113/52 L Blood Pressure [Ri ght Upper Arm] Blood Pressure [or thostatic lying Ri ght Arm] Blood Pressure [or thostatic sitting Right Arm] Blood Pressure [or thostatic standing Right Arm] Pulse Oximetry 95 96 [facility] 11:32 08/19/22 12:00 08/19/22 12:01 Temperature Pulse Rate 80 78 83 Pulse Rate [Left] Pulse Rate [Pulse Oximeter] Pulse Rate [orthos tatic lying Pulse Oximeter] Pulse Rate [orthos tatic sitting Puls e Oximeter] Respiratory Rate Blood Pressure 131/68 Blood Pressure [Ri ght Upper Arm] Blood Pressure [or thostatic lying Ri ght Arm] Blood Pressure [or thostatic sitting Right Arm] Blood Pressure [or thostatic standing Right Arm] Pulse Oximetry 96 95 96 [facility] 12:02 08/19/22 12:30 08/19/22 12:31 Temperature Pulse Rate 78 77 77 Pulse Rate [Left] Pulse Rate [Pulse Oximeter] Pulse Rate [orthos tatic lying Pulse Oximeter] Pulse Rate [orthos tatic sitting Puls e Oximeter] Respiratory Rate Blood Pressure 137/50 L Blood Pressure [Ri ght Upper Arm] Blood Pressure [or thostatic lying Ri ght Arm] Blood Pressure [or thostatic sitting Right Arm] Blood Pressure [or thostatic standing Right Arm] Pulse Oximetry 95 95 96 Oxygen Delivery Nm thod 08/19/22 13:00 08/19/22 13:01 08/19/22 13:02 Temperature Pulse Rate 79 78 78 Pulse Rate [Left] Pulse Rate [Pulse Oximeter] Pulse Rate [orthos tatic lying Pulse Oximeter] Pulse Rate [orthos tatic sitting Puls e Oximeter] Respiratory Rate Blood Pressure 128/56 L Blood Pressure [Ri ght Upper Arm] Blood Pressure [or thostatic lying Ri ght Arm] Blood Pressure [or thostatic sitting Right Arm] Blood Pressure [or thostatic standing Right Arm] Pulse Oximetry 96 95 95 Oxygen Delivery Me thod 08/19/22 13:30 08/19/22 13:32 08/19/22 14:00 Temperature Pulse Rate 77 78 80 Pulse Rate [Left] Pulse Rate [Pulse Oximeter] Pulse Rate [orthos tatic lying Pulse Oximeter] Pulse Rate [orthos tatic sitting Puls e Oximeter] Respiratory Rate Blood Pressure 152/67 H Blood Pressure [Ri ght Upper Arm] Blood Pressure [or thostatic lying Ri ght Arm] Blood Pressure [or thostatic sitting Right Arm] Blood Pressure [or thostatic standing Right Arm] Pulse Oximetry 95 95 94 Oxygen Delivery Me thod 08/19/22 14:02 Temperature Pulse Rate 81 Pulse Rate [Left] Pulse Rate [Pulse Oximeter] Pulse Rate [orthos tatic lying Pulse Oximeter] Pulse Rate [orthos tatic sitting Puls e Oximeter] Respiratory Rate Blood Pressure 142/73 H Blood Pressure [Ri ght Upper Arm] Blood Pressure [or thostatic lying Ri ght Arm] Blood Pressure [or thostatic sitting Right Arm] Blood Pressure [or thostatic standing Right Arm] Pulse Oximetry 94 Oxygen Delivery Me thod Course Vital Signs Vital signs: Initial Vital Signs Temperature 97.6 F 08/19/22 08:34 Temperature Source Temporal Artery Scan 08/19/22 08:34 Pulse Rate 78 08/19/22 08:34 Pulse Rhythm 08/19/22 08:34 Pulse Strength 3+ Normal 08/19/22 08:34 Respiratory Rate 16 08/19/22 08:34 Blood Pressure 134/68 08/19/22 08:34 Blood Pressure Mean 90 08/19/22 08:34 Blood Pressure Position Supine 08/19/22 08:34 Pulse Oximetry 95 08/19/22 08:34 Oxygen Delivery Method 08/19/22 08:34 Vital Signs Temperature 97.6 F 08/19/22 08:34 Pulse Rate 78 08/19/22 08:34 Respiratory Rate 16 08/19/22 08:34 Blood Pressure 134/68 08/19/22 08:34 Pulse Oximetry 95 08/19/22 08:34 Oxygen Delivery Method 08/19/22 08:34 Temperature 97.4 F L 08/19/22 14:32 Pulse Rate 77 08/19/22 14:32 Respiratory Rate 16 08/19/22 14:32 Blood Pressure 134/58 L 08/19/22 14:32 Pulse Oximetry 95 08/19/22 14:38 Oxygen Delivery Method 08/19/22 14:38 Medical Decision Making MDM Narrative Medical decision making narrative: Patient has significant lightheadedness with any standing or moving, and we checked orthostatics today and she does not appear to be orthostatic. She does have recurrence of abdominal discomfort given her recent history of diverticulitis I think doing a CT scan again of her abdomen makes sense as well as her head because she fell. Will check electrolytes, IV fluid hydration, urinalysis, EKG. Addendum patient's EKG shows normal sinus rhythm limited R-wave progression anteriorly but no acute ST T wave changes by my read. Laboratory studies show normal white count normal hemoglobin, normal INR, ER profile is unremarkable, CRP is slightly elevated at 5.5, proBNP is normal amylase normal, urinalysis looks largely unremarkable trace leukocyte esterase, negative COVID/influenza/RSV. Patient continues to have feeling of lightheadedness. Will review her CT scans as they return. Addendum: The patient has diverticulitis noted on her CT scan at a new site. Will give her IV Zosyn, the given the patient's lightheadedness and abdominal discomfort I think admission would be appropriate. Discussed with hospitalist. Addendum: The patient has a posterior scalp hematoma, but no intracranial injury. Lab Data Labs: Lab Results 08/19/22 08/19/22 08/19/22 Range/Units 08:52 08:53 08:55 WBC 9.98 (4.50-11.00) K/uL RBC 4.21 (4.00-5.20) m/uL Hgb 12.0 (12.0-16.0) gm/dL Hct 37.6 (33.0-51.0) % MCV 89 (80-100) fL MCH 29 (26-34) pg MCHC 32 (32-36) gm/dL RDW Coeff of [place] 13.2 (11.5-15.5) % Plt Count 193 (140-440) K/uL Neut % (Auto) 82.2 H (42.0-72.0) % Lymph % (Auto) 10.9 L (20-44) % [place] % (Auto) 6.6 (0.0-11.0) % Eos % (Auto) 0.1 (0.0-7.0) % Baso % (Auto) 0.1 (0.0-3.0) % Neut # (Auto) 8.20 H (1.7-7.0) K/uL Lymph # (Auto) 1.10 (0.90-2.90) K/uL [place] # (Auto) 0.70 (0.00-0.90) K/UL Eos # (Auto) 0.01 (0.00-0.50) K/uL Baso # (Auto) 0.01 (0.00-0.30) K/uL INR (0.91-1.10) Sodium (135-149) mmol/L Potassium (3.6-5.1) mmol/L Chloride (96-114) mmol/L Carbon Dioxide (20-32) mmol/L BUN (7-30) mg/dL Creatinine (0.5-1.5) mg/dL Estimated Creat Clear Estimated GFR ml/min Glucose (60-115) mg/dL Lactate (0.5-1.9) mmol/L Calcium (8.4-10.6) mg/dL Total Bilirubin (0.1-1.5) mg/dL Direct Bilirubin (0.0-0.5) mg/dL AST (12-35) U/L ALT (4-35) U/L Alkaline Phosphatase (40-150) U/L C-Reactive Protein (0.5-1.0) mg/dL NT-Pro-B Natriuret Pep pg/mL Total Protein (6.0-8.3) g/dL Albumin (3.3-5.0) g/dL Amylase (18-89) U/L Urine Color Yellow (Yellow) Urine Appearance Clear (Clear) Urine pH 8.5 (5.0-8.5) Ur Specific [place] 1.015 (1.000-1.030) Urine Protein 1+ A (Negative) Urine Glucose (UA) Negative (Negative) Urine Ketones Trace A (Negative) Urine Blood Trace-intact A (Negative) Urine Nitrite Negative (Negative) Urine Bilirubin Negative (Negative) Urine Urobilinogen 0.2 (0.2-1.0) Ur Leukocyte Esterase Trace A (Negative) Urine RBC 0-2 (0-2) Urine WBC 2-5 (0-5) Ur Squamous Epith Cells Few (None-Few) Urine Bacteria None (None) SARS-CoV-2 (PCR) Negative SARS-CoV-2 (Negative) Influenza Type A (PCR) Negative PCR FLU A (Negative) Influenza Type B (PCR) Negative PCR FLU B (Negative) RSV (PCR) Negative PCR RSV (Negative) 08/19/22 08/19/22 08/19/22 Range/Units 08:55 08:55 08:55 WBC (4.50-11.00) K/uL RBC (4.00-5.20) m/uL Hgb (12.0-16.0) gm/dL Hct (33.0-51.0) % MCV (80-100) fL MCH (26-34) pg MCHC (32-36) gm/dL RDW Coeff of [place] (11.5-15.5) % Plt Count (140-440) K/uL Neut % (Auto) (42.0-72.0) % Lymph % (Auto) (20-44) % [place] % (Auto) (0.0-11.0) % Eos % (Auto) (0.0-7.0) % Baso % (Auto) (0.0-3.0) % Neut # (Auto) (1.7-7.0) K/uL Lymph # (Auto) (0.90-2.90) K/uL [place] # (Auto) (0.00-0.90) K/UL Eos # (Auto) (0.00-0.50) K/uL Baso # (Auto) (0.00-0.30) K/uL INR 1.05 (0.91-1.10) Sodium 139 (135-149) mmol/L Potassium 3.9 (3.6-5.1) mmol/L Chloride 106 (96-114) mmol/L Carbon Dioxide 27 (20-32) mmol/L BUN 16 (7-30) mg/dL Creatinine 0.7 (0.5-1.5) mg/dL Estimated Creat Clear 32.39 Estimated GFR 85 ml/min Glucose 111 (60-115) mg/dL Lactate 0.7 (0.5-1.9) mmol/L Calcium 8.5 (8.4-10.6) mg/dL Total Bilirubin 1.5 (0.1-1.5) mg/dL Direct Bilirubin 0.0 (0.0-0.5) mg/dL AST 20 (12-35) U/L ALT 15 (4-35) U/L Alkaline Phosphatase 61 (40-150) U/L C-Reactive Protein 5.5 H (0.5-1.0) mg/dL NT-Pro-B Natriuret Pep 158 pg/mL Total Protein 6.7 (6.0-8.3) g/dL Albumin 3.9 (3.3-5.0) g/dL Amylase 66 (18-89) U/L Urine Color (Yellow) Urine Appearance (Clear) Urine pH (5.0-8.5) Ur Specific [place] (1.000-1.030) Urine Protein (Negative) Urine Glucose (UA) (Negative) Urine Ketones (Negative) Urine Blood (Negative) Urine Nitrite (Negative) Urine Bilirubin (Negative) Urine Urobilinogen (0.2-1.0) Ur Leukocyte Esterase (Negative) Urine RBC (0-2) Urine WBC (0-5) Ur Squamous Epith Cells (None-Few) Urine Bacteria (None) SARS-CoV-2 (PCR) (Negative) Influenza Type A (PCR) (Negative) Influenza Type B (PCR) (Negative) RSV (PCR) (Negative) Discharge Plan Discharge Prescriptions: No Action melatonin 3 mg capsule 3 - 6 mg PO HS PRN ascorbic acid (vitamin C) 500 mg tablet 500 mg PO BID calcium carbonate 500 mg calcium (1,250 mg) tablet 500 mg PO BIDWM aspirin 81 mg tablet,delayed release (DR/EC) 81 mg PO DAILY timolol maleate 0.5 % drops 1 drp ophthalmic (eye) DAILY Label Comments: left eye simvastatin 10 mg tablet 10 mg PO HS amlodipine 5 mg tablet 5 mg PO HS Follow Up/Referrals: Neema Koenig MD [Primary Care Provider] -
[2022-08-19] MEDS: PIPERACILLIN/TAZOBACTAM 3.375 GM in 0.9 % SODIUM CHLORIDE Mini-bag 100 ML IVPB (11:59)
--- NOTE | 2022-08-19 12:07 | PC.NURSE ---
Up with assist of 1 to commode. Patient stated she felt dizzy. Did not have LOC or hearing or vision lost. Voided a large amount and had 1 small loose BM. No blood seen
[2022-08-19] MEDS: 5 % DEXTROSE/0.9% SOD CHLORIDE 1,000 ML 75 ML IV (13:19)
--- NOTE | 2022-08-19 14:20 | ED.NURSE ---
Patient admitted to [facility]. Left via cart. All belonging sent with. Daughter present.
[2022-08-19] MEDS: 5 % DEXTROSE/0.9% SOD CHLORIDE 1,000 ML 125 ML IV (15:20)
[2022-08-19] MEDS: ERTAPENEM 1 GM in 0.9 % SODIUM CHLORIDE Mini-bag 100 ML IVPB (16:09)
--- NOTE | 2022-08-19 17:01 | P.GSCN_ITS ---
History of Present Illness Consult details Date Seen: 08/19/22 Consult date: 08/19/22 Narrative: Patient is an 86-year-old female, who presented to the emergency department with weakness and abdominal pain. This morning she states that she was unable to get out of bed, which prompted her to come into the ED. Does have a history of diverticulitis with on and off abdominal pain since May. She has never been hospitalized for this, but has had several courses of oral antibiotics. She denies any diarrhea, but has been having constipation with small hard stools over the last few days. No fevers or chills. Her last colonoscopy was over 7 years ago. She has no history of polyps, but family history is positive for colon cancer in a brother. It sounds like her brother was just recently diagnosed at the age of 86. In dealing with her frequent bouts of abdominal pain she has lost about 6 lb in admits to having a decreased appetite. Review of Systems Status of ROS: Reports: 6 or more systems reviewed and unremarkable except as noted in History and below [facility] Medical History History of giant cell arteritis (2016) History of pulmonary embolism (2019) Surgical History History of appendectomy (1949) History of bilateral cataract extraction (2020) History of section (1960) History of tonsillectomy (1947) History of tympanostomy (1971) Social History Highest level of school completed/degree received: Bachelor's degree Smoking Status: Never smoker Second hand tobacco smoke exposure: No How often do you have a drink containing alcohol: never AUDIT-C Alcohol total score: 0 Non-prescribed substance use: denies use Caffeine: No Little interest or pleasure in doing things: not at all Feeling down, depressed, or hopeless: not at all service: No Meds Home Medications and Allergies Home Medications Medication Instructions Recorded Confirmed Type ascorbic acid (vitamin C) 500 mg 500 mg PO BID 02/28/22 08/19/22 History tablet aspirin 81 mg tablet,delayed 81 mg PO DAILY 02/28/22 08/19/22 History release calcium carbonate 500 mg calcium 500 mg PO BIDWM 02/28/22 08/19/22 History (1,250 mg) tablet melatonin 3 mg capsule 3 - 6 mg PO HS PRN 02/28/22 08/19/22 History amlodipine 5 mg tablet 5 mg PO HS 08/19/22 08/19/22 History simvastatin 10 mg tablet 10 mg PO HS 08/19/22 08/19/22 History timolol maleate 0.5 % eye drops 1 drp ophthalmic (eye) DAILY 08/19/22 08/19/22 History Allergies Allergy/AdvReac Type Severity Reaction Status Date / Time lidocaine Allergy Severe shaking Verified 08/19/22 08:32 Sulfa drugs Allergy Unknown unknown Uncoded 08/09/22 09:50 childhood rxn Exam Narrative: Exam Narrative: General: Alert and oriented, no acute distress. Lying comfortably in bed. Respiratory: Equal breath rise bilaterally, maintained on room air CV: Regular rhythm rate, well perfused Abdomen: Soft, mild distention, tender to palpation in left lower quadrant with no guarding or rebound. Const: Vital Signs, click to edit/add: Vital Signs - 24 hr 08/19/22 08:34 08/19/22 08:43 08/19/22 08:45 Temperature 97.6 F Pulse Rate 78 78 Pulse Rate [Left] Pulse Rate [Pulse Oximeter] 78 Pulse Rate [orthos tatic lying Pulse Oximeter] Pulse Rate [orthos tatic sitting Puls e Oximeter] Respiratory Rate 16 16 Blood Pressure 130/68 Blood Pressure [Ri ght Arm] Blood Pressure [Ri ght Upper Arm] 134/68 Blood Pressure [or thostatic lying Ri ght Arm] Blood Pressure [or thostatic sitting Right Arm] Blood Pressure [or thostatic standing Right Arm] Pulse Oximetry 95 94 95 Oxygen Delivery Me thod Room Air 08/19/22 09:19 08/19/22 08:46 08/19/22 09:00 Temperature Pulse Rate 75 85 Pulse Rate [Left] 93 Pulse Rate [Pulse Oximeter] Pulse Rate [orthos tatic lying Pulse Oximeter] 79 Pulse Rate [orthos tatic sitting Puls e Oximeter] 87 Respiratory Rate Blood Pressure Blood Pressure [Ri ght Arm] Blood Pressure [Ri ght Upper Arm] Blood Pressure [or thostatic lying Ri ght Arm] 137/66 Blood Pressure [or thostatic sitting Right Arm] 128/56 L Blood Pressure [or thostatic standing Right Arm] 96/63 Pulse Oximetry 96 96 Oxygen Delivery [place] thod 08/19/22 09:05 02 09:15 08/19/22 09:17 Temperature Pulse Rate 79 86 86 Pulse Rate [Left] Pulse Rate [Pulse Oximeter] Pulse Rate [orthos tatic lying Pulse Oximeter] Pulse Rate [orthos tatic sitting Puls e Oximeter] Respiratory Rate Blood Pressure 137/66 128/56 L 96/63 Blood Pressure [Ri ght Arm] Blood Pressure [Ri ght Upper Arm] Blood Pressure [or thostatic lying Ri ght Arm] Blood Pressure [or thostatic sitting Right Arm] Blood Pressure [or thostatic standing Right Arm] Pulse Oximetry 96 96 98 [facility] 09:30 08/19/22 09:32 08/19/22 10:00 Temperature Pulse Rate 75 76 75 Pulse Rate [Left] Pulse Rate [Pulse Oximeter] Pulse Rate [orthos tatic lying Pulse Oximeter] Pulse Rate [orthos tatic sitting Puls e Oximeter] Respiratory Rate Blood Pressure 133/60 Blood Pressure [Ri ght Arm] Blood Pressure [Ri ght Upper Arm] Blood Pressure [or thostatic lying Ri ght Arm] Blood Pressure [or thostatic sitting Right Arm] Blood Pressure [or thostatic standing Right Arm] Pulse Oximetry 94 95 95 [facility] 08/19/22 10:02 08/19/22 10:22 08/19/22 10:30 Temperature Pulse Rate 72 73 Pulse Rate [Left] Pulse Rate [Pulse Oximeter] Pulse Rate [orthos tatic lying Pulse Oximeter] Pulse Rate [orthos tatic sitting Puls e Oximeter] Respiratory Rate Blood Pressure 139/57 L Blood Pressure [Ri ght Arm] Blood Pressure [Ri ght Upper Arm] Blood Pressure [or thostatic lying Ri ght Arm] Blood Pressure [or thostatic sitting Right Arm] Blood Pressure [or thostatic standing Right Arm] Pulse Oximetry 96 98 Oxygen Delivery [place] thod 08/19/22 10:31 08/19/22 10:32 08/19/22 11:00 Temperature Pulse Rate 73 76 78 Pulse Rate [Left] Pulse Rate [Pulse Oximeter] Pulse Rate [orthos tatic lying Pulse Oximeter] Pulse Rate [orthos tatic sitting Puls e Oximeter] Respiratory Rate Blood Pressure 137/64 Blood Pressure [Ri ght Arm] Blood Pressure [Ri ght Upper Arm] Blood Pressure [or thostatic lying Ri ght Arm] Blood Pressure [or thostatic sitting Right Arm] Blood Pressure [or thostatic standing Right Arm] Pulse Oximetry 95 96 95 Oxygen Delivery [place] thod 08/19/22 11:02 08/19/22 11:30 08/19/22 11:31 Temperature Pulse Rate 77 79 81 Pulse Rate [Left] Pulse Rate [Pulse Oximeter] Pulse Rate [orthos tatic lying Pulse Oximeter] Pulse Rate [orthos tatic sitting Puls e Oximeter] Respiratory Rate 16 Blood Pressure 134/64 113/52 L Blood Pressure [Ri ght Arm] Blood Pressure [Ri ght Upper Arm] Blood Pressure [or thostatic lying Ri ght Arm] Blood Pressure [or thostatic sitting Right Arm] Blood Pressure [or thostatic standing Right Arm] Pulse Oximetry 95 96 96 Oxygen Delivery [place] thod 08/19/22 11:32 08/19/22 12:00 08/19/22 12:01 Temperature Pulse Rate 80 78 83 Pulse Rate [Left] Pulse Rate [Pulse Oximeter] Pulse Rate [orthos tatic lying Pulse Oximeter] Pulse Rate [orthos tatic sitting Puls e Oximeter] Respiratory Rate Blood Pressure 131/68 Blood Pressure [Ri ght Arm] Blood Pressure [Ri ght Upper Arm] Blood Pressure [or thostatic lying Ri ght Arm] Blood Pressure [or thostatic sitting Right Arm] Blood Pressure [or thostatic standing Right Arm] Pulse Oximetry 96 95 96 Oxygen Delivery [place] thod 08/19/22 12:02 08/19/22 12:30 08/19/22 12:31 Temperature Pulse Rate 78 77 77 Pulse Rate [Left] Pulse Rate [Pulse Oximeter] Pulse Rate [orthos tatic lying Pulse Oximeter] Pulse Rate [orthos tatic sitting Puls e Oximeter] Respiratory Rate Blood Pressure 137/50 L Blood Pressure [Ri ght Arm] Blood Pressure [Ri ght Upper Arm] Blood Pressure [or thostatic lying Ri ght Arm] Blood Pressure [or thostatic sitting Right Arm] Blood Pressure [or thostatic standing Right Arm] Pulse Oximetry 95 95 96 Oxygen Delivery [place] thod 08/19/22 13:00 08/19/22 13:01 08/19/22 13:02 Temperature Pulse Rate 79 78 78 Pulse Rate [Left] Pulse Rate [Pulse Oximeter] Pulse Rate [orthos tatic lying Pulse Oximeter] Pulse Rate [orthos tatic sitting Puls e Oximeter] Respiratory Rate Blood Pressure 128/56 L Blood Pressure [Ri ght Arm] Blood Pressure [Ri ght Upper Arm] Blood Pressure [or thostatic lying Ri ght Arm] Blood Pressure [or thostatic sitting Right Arm] Blood Pressure [or thostatic standing Right Arm] Pulse Oximetry 96 95 95 Oxygen Delivery Me thod 08/19/22 13:30 08/19/22 13:32 08/19/22 14:00 Temperature Pulse Rate 77 78 80 Pulse Rate [Left] Pulse Rate [Pulse Oximeter] Pulse Rate [orthos tatic lying Pulse Oximeter] Pulse Rate [orthos tatic sitting Puls e Oximeter] Respiratory Rate Blood Pressure 152/67 H Blood Pressure [Ri ght Arm] Blood Pressure [Ri ght Upper Arm] Blood Pressure [or thostatic lying Ri ght Arm] Blood Pressure [or thostatic sitting Right Arm] Blood Pressure [or thostatic standing Right Arm] Pulse Oximetry 95 95 94 Oxygen Delivery Me thod 08/19/22 14:02 08/19/22 14:32 08/19/22 14:38 Temperature 97.4 F L Pulse Rate 81 Pulse Rate [Left] Pulse Rate [Pulse Oximeter] 77 Pulse Rate [orthos tatic lying Pulse Oximeter] Pulse Rate [orthos tatic sitting Puls e Oximeter] Respiratory Rate 16 Blood Pressure 142/73 H Blood Pressure [Ri ght Arm] 134/58 L Blood Pressure [Ri ght Upper Arm] Blood Pressure [or thostatic lying Ri ght Arm] Blood Pressure [or thostatic sitting Right Arm] Blood Pressure [or thostatic standing Right Arm] Pulse Oximetry 94 95 95 Oxygen Delivery Me thod Room Air Room Air 08/19/22 15:19 Temperature Pulse Rate 78 Pulse Rate [Left] Pulse Rate [Pulse Oximeter] Pulse Rate [orthos tatic lying Pulse Oximeter] Pulse Rate [orthos tatic sitting Puls e Oximeter] Respiratory Rate Blood Pressure Blood Pressure [Ri ght Arm] Blood Pressure [Ri ght Upper Arm] Blood Pressure [or thostatic lying Ri ght Arm] Blood Pressure [or thostatic sitting Right Arm] Blood Pressure [or thostatic standing Right Arm] Pulse Oximetry Oxygen Delivery Me thod Results Labs Labs: Abnormal lab results 08/19/22 08/19/22 08/19/22 Range/Units 08:53 08:55 08:55 Neut % (Auto) 82.2 H (42.0-72.0) % Lymph % (Auto) 10.9 L (20-44) % Neut # (Auto) 8.20 H (1.7-7.0) K/uL C-Reactive Protein 5.5 H (0.5-1.0) mg/dL Urine Protein 1+ A (Negative) Urine Ketones Trace A (Negative) Urine Blood Trace-intact A (Negative) Ur Leukocyte Esterase Trace A (Negative) Diabetes panel 08/19/22 Range/Units 08:55 Sodium 139 (135-149) mmol/L Potassium 3.9 (3.6-5.1) mmol/L Chloride 106 (96-114) mmol/L Carbon Dioxide 27 (20-32) mmol/L BUN 16 (7-30) mg/dL Creatinine 0.7 (0.5-1.5) mg/dL Glucose 111 (60-115) mg/dL Calcium 8.5 (8.4-10.6) mg/dL AST 20 (12-35) U/L ALT 15 (4-35) U/L Alkaline Phosphatase 61 (40-150) U/L Total Protein 6.7 (6.0-8.3) g/dL Albumin 3.9 (3.3-5.0) g/dL Calcium panel 08/19/22 Range/Units 08:55 Calcium 8.5 (8.4-10.6) mg/dL Albumin 3.9 (3.3-5.0) g/dL Pituitary panel 08/19/22 Range/Units 08:55 Sodium 139 (135-149) mmol/L Potassium 3.9 (3.6-5.1) mmol/L Chloride 106 (96-114) mmol/L Carbon Dioxide 27 (20-32) mmol/L BUN 16 (7-30) mg/dL Creatinine 0.7 (0.5-1.5) mg/dL Glucose 111 (60-115) mg/dL Calcium 8.5 (8.4-10.6) mg/dL Adrenal panel 08/19/22 Range/Units 08:55 Sodium 139 (135-149) mmol/L Potassium 3.9 (3.6-5.1) mmol/L Chloride 106 (96-114) mmol/L Carbon Dioxide 27 (20-32) mmol/L BUN 16 (7-30) mg/dL Creatinine 0.7 (0.5-1.5) mg/dL Glucose 111 (60-115) mg/dL Calcium 8.5 (8.4-10.6) mg/dL Total Bilirubin 1.5 (0.1-1.5) mg/dL AST 20 (12-35) U/L ALT 15 (4-35) U/L Alkaline Phosphatase 61 (40-150) U/L Total Protein 6.7 (6.0-8.3) g/dL Albumin 3.9 (3.3-5.0) g/dL All other labs normal. Imaging Abdomen CT scan report/results: report reviewed and image reviewed Assessment and Plan Assessment and plan (1) Diverticulitis: Status: Acute Plan Patient is an 86-year-old female who presents with weakness and abdominal pain. Workup was obtained with no leukocytosis, but evidence of a left shift. CRP is also elevated at 5.5. A CT scan was obtained which demonstrated distal sigmoid diverticular disease. She also has a documented attack from May 2022. 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 Given the number of recent CT documented attacks, as well as the patient's clinical history surgical excision would be reasonable. Ideally this would occur or at a later date. At this time she has uncomplicated disease with no evidence of abscess or fistula. She is clinically stable and receiving IV antibiotics. Will continue with medical management. Recommend continuing IV ertapenem. Okay for diet. Will continue to follow the patient and see her tomorrow morning. Please call with any acute clinical changes, questions or concerns.
--- NOTE | 2022-08-19 20:03 | P.IMHP_ITS ---
Hospitalist- H&P: HPI History of Present Illness Date Seen: 08/19/22 Chief complaint: Dizzy, snycope Narrative: Shannen Amin is a 86 year old female admitted through the emergency department with weakness and syncope episode today. Patient reports that she got up around 4:30 a.m. today. She was in her kitchen to get a drink of water. The next thing she knew she was on the floor picking herself up. She does believe she bumped her head at the time. She did feel dizzy prior to the onset of syncope. Since that time she has continued to feel dizzy with any attempt to sit up or stand. She tells me that paramedics came to pick her up and has a sat her up she again had a brief episode of loss of consciousness. She has had a previous syncopal episode a couple years ago after a COVID booster. Otherwise no other history of syncope. She has had some abdominal pain. On May [address] scan showing sigmoid diverticulitis. She was treated with antibiotics as an outpatient at that time. Subsequently had another CT scan on August 01 showing persistence of diverticulitis in the same area. Further outpatient antibiotics given. CT of the abdomen and pelvis today shows some improvement in the area of previous diverticulitis but some worsening in the adjacent rectosigmoid. She has not had a fever. She has been able to eat but her appetite is diminished. She thinks she may have lost as much as 6 lb in the last 3-4 weeks. She reports a remote history of colonoscopy several years ago. Results of that are unknown. Review of Systems Narrative: Patient reports that she generally been doing well except for the issues noted above. [facility] Medical History (Updated 08/19/22 @ 20:19 by Jordan Monreal MD) Adjustment disorder Chronic neck pain (2017) Diverticulitis History of diverticulitis History of giant cell arteritis (2016) History of pulmonary embolism (2019) Hyperlipidemia (2007) Influenza vaccination declined by patient (2020) Osteoporosis (2007) Pneumococcal vaccination declined (2021) PVC (premature ventricular contraction) Syncope Thoracic aortic aneurysm Wears hearing aid (2016) Surgical History History of appendectomy (1949) History of bilateral cataract extraction (2020) History of section (1961) History of tonsillectomy (1948) History of tympanostomy (1971) Family History (Updated 08/19/22 @ 20:15 by Jordan Monreal MD) Daughter Breast cancer Mother High blood pressure Father High blood pressure Social History (Updated 08/19/22 @ 20:16 by Jordan Monreal MD) Narrative: She lives independently at [address] [place] [address]. Her daughter Emilia is healthcare power of workers compensation attorney. Her code status is full. She does not smoke. She does not drink alcohol. Highest level of school completed/degree received: Bachelor's degree Smoking Status: Never smoker Second hand tobacco smoke exposure: No How often do you have a drink containing alcohol: never AUDIT-C Alcohol total score: 0 Non-prescribed substance use: denies use Caffeine: No Little interest or pleasure in doing things: not at all Feeling down, depressed, or hopeless: not at all service: No Meds Home Medications and Allergies Home Medications Medication Instructions Recorded Confirmed Type ascorbic acid (vitamin C) 500 mg 500 mg PO BID 02/28/22 08/19/22 History tablet aspirin 81 mg tablet,delayed 81 mg PO DAILY 02/28/22 08/19/22 History release calcium carbonate 500 mg calcium 500 mg PO BIDWM 02/28/22 08/19/22 History (1,250 mg) tablet melatonin 3 mg capsule 3 - 6 mg PO HS PRN 02/28/22 08/19/22 History amlodipine 5 mg tablet 5 mg PO HS 08/19/22 08/19/22 History simvastatin 10 mg tablet 10 mg PO HS 08/19/22 08/19/22 History timolol maleate 0.5 % eye drops 1 drp ophthalmic (eye) DAILY 08/19/22 08/19/22 History Allergies Allergy/AdvReac Type Severity Reaction Status Date / Time lidocaine Allergy Severe shaking Verified 08/19/22 08:32 Sulfa drugs Allergy Unknown unknown Uncoded 08/09/22 09:50 childhood rxn Exam Narrative: Exam Narrative: She is alert and appears in no distress. She is lying in bed. Head has occipital bruising. No other trauma. Eyes are normal. Extraocular movements are full. Visual knight are intact. No facial asymmetry. Oropharynx is normal. Tongue is midline. Neck is supple without mass or adenopathy. Respirations are clear to auscultation. Cardiovascular: S1, S2, regular rate and rhythm. No murmur gallop or rub. Abdomen: Bowel sounds active. Abdomen is soft with moderate low abdominal tenderness right greater than left. No mid or upper abdominal tenderness of significance. There is no peritonitis. External genitalia normal. Extremities with intact pulses and sensation. She moves all 4 extremities well. Const: Vital Signs, click to edit/add: Vital Signs - 24 hr 08/19/22 08:34 08/19/22 08:43 08/19/22 08:45 Temperature 97.6 F Pulse Rate 78 78 Pulse Rate [Left] Pulse Rate [Pulse Oximeter] 78 Pulse Rate [orthos tatic lying Pulse Oximeter] Pulse Rate [orthos tatic sitting Puls e Oximeter] Respiratory Rate 16 16 Blood Pressure 130/68 Blood Pressure [Ri ght Arm] Blood Pressure [Ri ght Upper Arm] 134/68 Blood Pressure [or thostatic lying Ri ght Arm] Blood Pressure [or thostatic sitting Right Arm] Blood Pressure [or thostatic standing Right Arm] Pulse Oximetry 95 94 95 Oxygen Delivery Me thod Room Air 08/19/22 09:19 08/19/22 08:46 08/19/22 09:00 Temperature Pulse Rate 75 85 Pulse Rate [Left] 93 Pulse Rate [Pulse Oximeter] Pulse Rate [orthos tatic lying Pulse Oximeter] 79 Pulse Rate [orthos tatic sitting Puls e Oximeter] 87 Respiratory Rate Blood Pressure Blood Pressure [Ri ght Arm] Blood Pressure [Ri ght Upper Arm] Blood Pressure [or thostatic lying Ri ght Arm] 137/66 Blood Pressure [or thostatic sitting Right Arm] 128/56 L Blood Pressure [or thostatic standing Right Arm] 96/63 Pulse Oximetry 96 96 Oxygen Delivery Me thod 08/19/22 09:05 08/19/22 09:15 08/19/22 09:17 Temperature Pulse Rate 79 86 86 Pulse Rate [Left] Pulse Rate [Pulse Oximeter] Pulse Rate [orthos tatic lying Pulse Oximeter] Pulse Rate [orthos tatic sitting Puls e Oximeter] Respiratory Rate Blood Pressure 137/66 128/56 L 96/63 Blood Pressure [Ri ght Arm] Blood Pressure [Ri ght Upper Arm] Blood Pressure [or thostatic lying Ri ght Arm] Blood Pressure [or thostatic sitting Right Arm] Blood Pressure [or thostatic standing Right Arm] Pulse Oximetry 96 96 98 Oxygen Delivery Ks thod 08/19/22 09:30 08/19/22 09:32 08/19/22 10:00 Temperature Pulse Rate 75 76 75 Pulse Rate [Left] Pulse Rate [Pulse Oximeter] Pulse Rate [orthos tatic lying Pulse Oximeter] Pulse Rate [orthos tatic sitting Puls e Oximeter] Respiratory Rate Blood Pressure 133/60 Blood Pressure [Ri ght Arm] Blood Pressure [Ri ght Upper Arm] Blood Pressure [or thostatic lying Ri ght Arm] Blood Pressure [or thostatic sitting Right Arm] Blood Pressure [or thostatic standing Right Arm] Pulse Oximetry 94 95 95 Oxygen Delivery Ks thod 08/19/22 10:02 08/19/22 10:22 08/19/22 10:30 Temperature Pulse Rate 72 73 Pulse Rate [Left] Pulse Rate [Pulse Oximeter] Pulse Rate [orthos tatic lying Pulse Oximeter] Pulse Rate [orthos tatic sitting Puls e Oximeter] Respiratory Rate Blood Pressure 139/57 L Blood Pressure [Ri ght Arm] Blood Pressure [Ri ght Upper Arm] Blood Pressure [or thostatic lying Ri ght Arm] Blood Pressure [or thostatic sitting Right Arm] Blood Pressure [or thostatic standing Right Arm] Pulse Oximetry 96 98 Oxygen Delivery Ks thod 08/19/22 10:31 08/19/22 10:32 08/19/22 11:00 Temperature Pulse Rate 73 76 78 Pulse Rate [Left] Pulse Rate [Pulse Oximeter] Pulse Rate [orthos tatic lying Pulse Oximeter] Pulse Rate [orthos tatic sitting Puls e Oximeter] Respiratory Rate Blood Pressure 137/64 Blood Pressure [Ri ght Arm] Blood Pressure [Ri ght Upper Arm] Blood Pressure [or thostatic lying Ri ght Arm] Blood Pressure [or thostatic sitting Right Arm] Blood Pressure [or thostatic standing Right Arm] Pulse Oximetry 95 96 95 Oxygen Delivery Ks thod 08/19/22 11:02 08/19/22 11:30 08/19/22 11:31 Temperature Pulse Rate 77 79 81 Pulse Rate [Left] Pulse Rate [Pulse Oximeter] Pulse Rate [orthos tatic lying Pulse Oximeter] Pulse Rate [orthos tatic sitting Puls e Oximeter] Respiratory Rate 16 Blood Pressure 134/64 113/52 L Blood Pressure [Ri ght Arm] Blood Pressure [Ri ght Upper Arm] Blood Pressure [or thostatic lying Ri ght Arm] Blood Pressure [or thostatic sitting Right Arm] Blood Pressure [or thostatic standing Right Arm] Pulse Oximetry 95 96 96 Oxygen Delivery Me thod 08/19/22 11:32 08/19/22 12:00 08/19/22 12:01 Temperature Pulse Rate 80 78 83 Pulse Rate [Left] Pulse Rate [Pulse Oximeter] Pulse Rate [orthos tatic lying Pulse Oximeter] Pulse Rate [orthos tatic sitting Puls e Oximeter] Respiratory Rate Blood Pressure 131/68 Blood Pressure [Ri ght Arm] Blood Pressure [Ri ght Upper Arm] Blood Pressure [or thostatic lying Ri ght Arm] Blood Pressure [or thostatic sitting Right Arm] Blood Pressure [or thostatic standing Right Arm] Pulse Oximetry 96 95 96 Oxygen Delivery Ks thod 08/19/22 12:02 08/19/22 12:30 08/19/22 12:31 Temperature Pulse Rate 78 77 77 Pulse Rate [Left] Pulse Rate [Pulse Oximeter] Pulse Rate [orthos tatic lying Pulse Oximeter] Pulse Rate [orthos tatic sitting Puls e Oximeter] Respiratory Rate Blood Pressure 137/50 L Blood Pressure [Ri ght Arm] Blood Pressure [Ri ght Upper Arm] Blood Pressure [or thostatic lying Ri ght Arm] Blood Pressure [or thostatic sitting Right Arm] Blood Pressure [or thostatic standing Right Arm] Pulse Oximetry 95 95 96 Oxygen Delivery Ks thod 08/19/22 13:00 08/19/22 13:01 08/19/22 13:02 Temperature Pulse Rate 79 78 78 Pulse Rate [Left] Pulse Rate [Pulse Oximeter] Pulse Rate [orthos tatic lying Pulse Oximeter] Pulse Rate [orthos tatic sitting Puls e Oximeter] Respiratory Rate Blood Pressure 128/56 L Blood Pressure [Ri ght Arm] Blood Pressure [Ri ght Upper Arm] Blood Pressure [or thostatic lying Ri ght Arm] Blood Pressure [or thostatic sitting Right Arm] Blood Pressure [or thostatic standing Right Arm] Pulse Oximetry 96 95 95 Oxygen Delivery Ks thod 08/19/22 13:30 08/19/22 13:32 08/19/22 14:00 Temperature Pulse Rate 77 78 80 Pulse Rate [Left] Pulse Rate [Pulse Oximeter] Pulse Rate [orthos tatic lying Pulse Oximeter] Pulse Rate [orthos tatic sitting Puls e Oximeter] Respiratory Rate Blood Pressure 152/67 H Blood Pressure [Ri ght Arm] Blood Pressure [Ri ght Upper Arm] Blood Pressure [or thostatic lying Ri ght Arm] Blood Pressure [or thostatic sitting Right Arm] Blood Pressure [or thostatic standing Right Arm] Pulse Oximetry 95 95 94 Oxygen Delivery Me thod 08/19/22 14:02 08/19/22 14:32 08/19/22 14:38 Temperature 97.4 F L Pulse Rate 81 Pulse Rate [Left] Pulse Rate [Pulse Oximeter] 77 Pulse Rate [orthos tatic lying Pulse Oximeter] Pulse Rate [orthos tatic sitting Puls e Oximeter] Respiratory Rate 16 Blood Pressure 142/73 H Blood Pressure [Ri ght Arm] 134/58 L Blood Pressure [Ri ght Upper Arm] Blood Pressure [or thostatic lying Ri ght Arm] Blood Pressure [or thostatic sitting Right Arm] Blood Pressure [or thostatic standing Right Arm] Pulse Oximetry 94 95 95 Oxygen Delivery Me thod Room Air Room Air 08/19/22 15:19 08/19/22 19:05 Temperature 98.3 F Pulse Rate 78 Pulse Rate [Left] Pulse Rate [Pulse Oximeter] 81 Pulse Rate [orthos tatic lying Pulse Oximeter] Pulse Rate [orthos tatic sitting Puls e Oximeter] Respiratory Rate 16 Blood Pressure Blood Pressure [Ri ght Arm] 136/53 L Blood Pressure [Ri ght Upper Arm] Blood Pressure [or thostatic lying Ri ght Arm] Blood Pressure [or thostatic sitting Right Arm] Blood Pressure [or thostatic standing Right Arm] Pulse Oximetry 96 Oxygen Delivery Me thod Room Air Documenting provider has reviewed patient's vital signs: yes Hospitalist - H&P: Result Labs Labs: Short CBC 08/19/22 Range/Units 08:55 WBC 9.98 (4.50-11.00) K/uL Hgb 12.0 (12.0-16.0) gm/dL Hct 37.6 (33.0-51.0) % Plt Count 193 (140-440) K/uL BMP 08/19/22 08:55 Sodium 139 Potassium 3.9 Chloride 106 Carbon Dioxide 27 BUN 16 Creatinine 0.7 Glucose 111 Calcium 8.5 Liver Function 08/19/22 Range/Units 08:55 Total Bilirubin 1.5 (0.1-1.5) mg/dL Direct Bilirubin 0.0 (0.0-0.5) mg/dL AST 20 (12-35) U/L ALT 15 (4-35) U/L Alkaline Phosphatase 61 (40-150) U/L Albumin 3.9 (3.3-5.0) g/dL Urine 08/19/22 Range/Units 08:53 Urine Color Yellow (Yellow) Urine Appearance Clear (Clear) Urine pH 8.5 (5.0-8.5) Ur Specific [place] 1.015 (1.000-1.030) Urine Protein 1+ A (Negative) Urine Glucose (UA) Negative (Negative) Assessment and Plan Assessment and plan (1) Syncope: Problem comment: In the context of diverticulitis with poor oral intake Status: Acute (2) Diverticulitis: Problem comment: CT diagnosis a sigmoid diverticulitis 05/23/2022, August 01 2022, 08/19/2022 Consult surgery. Concern for 3 months of diverticulitis it has not resolved. Outpatient IV antibiotic with ertapenem when clinically improved. Status: Acute (3) Essential hypertension: Problem comment: Blood pressure medicines will be held at this time due to syncope in the context of acute illness. Status: Acute Plan Admit for IV antibiotics, surgical consult, evaluation of syncope. Likely will need outpatient IV antibiotics for another week. Possibly will need surgery to resolve her acute and chronic diverticulitis Total time spent today is 75 minutes, 50 minutes in coordination of care and discussing with patient, daughter and other providers ongoing evaluation management of diverticulitis and syncope
[2022-08-19] MEDS: ENOXAPARIN 40 MG/0.4 ML INJ SUBCUT (20:52)
[2022-08-19] MEDS: SIMVASTATIN 10 MG TABLET PO (20:52)
--- NOTE | 2022-08-19 23:33 | PC.NURSE ---
Shift [id number]- Patient intermittently dizzy- tonight she is dizzy turning in bed, but then denies dizziness when getting up to use BSC in same instance. She is otherwise up to bathroom with assist of 1, walker, gait belt. Tolerates full liquid diet without issue this afternoon. Denies pain.
[2022-08-20] VITALS (11 sets, daily range): BP systolic 86–140; BP diastolic 51–67; PULSE 65–83; RESP 16; TEMP 36.3–36.8; O2SAT 93–99
--- NOTE | 2022-08-20 05:48 | PC.NURSE ---
pt is alert and oriented. Denies pain or discomfort. Slept through most of the shift. VSS.
[2022-08-20 06:36] LABS: Basophils Absolute Auto 0.02 K/uL (0.00-0.30); Basophils Percent Auto 0.3 % (0.0-3.0); Eosinophils Absolute Auto 0.12 K/uL (0.00-0.50); Eosinophils Percent Auto 1.7 % (0.0-7.0); Hemoglobin* 10.6 gm/dL (12.0-16.0); Immature Granulocytes Abs Auto 0.01 K/uL (0.00-0.30); Immature Granulocytes Pct Auto 0.1 %; Lymphocytes Absolute Auto 1.59 K/uL (0.90-2.90); Lymphocytes Percent Auto 22.5 % (20-44); Mean Corpuscular HGB Conc 32 gm/dL (32-36); Mean Corpuscular Hemoglobin 29 pg (26-34); Mean Corpuscular Volume 90 fL (80-100); Monocytes Percent Auto 9.2 % (0.0-11.0); Neutrophils Absolute Auto 4.68 K/uL (1.7-7.0); Neutrophils Percent Auto 66.2 % (42.0-72.0); Platelet Count* 178 K/uL (140-440); RDW Coefficient of Variation % 13.2 % (11.5-15.5); Red Blood Count 3.68 m/uL (4.00-5.20); White Blood Count* 7.07 K/uL (4.50-11.00)
[2022-08-20 06:46] LABS: Slide Review Reflex No
[2022-08-20 06:53] LABS: C Reactive Protein* 8.3 mg/dL (0.5-1.0)
[2022-08-20] MEDS: SODIUM CHLORIDE 0.9 % (FLUSH) 10 ML SYRINGE 5 ML IVF ×3 (09:00→20:52)
[2022-08-20] MEDS: timoloL maleate 0.5 % 1 DROP EYE-BOTH (09:01)
--- NOTE | 2022-08-20 10:56 | PM.GSPN ---
Subjective Subjective Date Seen: 08/20/22 Interval history: Patient denies any abdominal pain this morning. She was able to have a more regular bowel movement. She reports some cramping in pain with the bowel movement and urinating, which resolved after she was done going to the bathroom. She did have an episode of dizziness this morning when she stood. she has been tolerating her diet without nausea or vomiting. No reported fevers. Exam Narrative: Exam Narrative: General: Alert and oriented, no acute distress. Nontoxic in appearance. Abdomen: Soft, nontender and nondistended. Const: Vital Signs, click to edit/add: Vital Signs - 24 hr 08/19/22 11:00 08/19/22 11:02 08/19/22 11:30 Temperature Pulse Rate 78 77 79 Pulse Rate [Pulse Oximeter] Respiratory Rate Blood Pressure 134/64 Blood Pressure [Ri ght Arm] Pulse Oximetry 95 95 96 [facility] 08/19/22 11:31 08/19/22 11:32 08/19/22 12:00 Temperature Pulse Rate 81 80 78 Pulse Rate [Pulse Oximeter] Respiratory Rate 16 Blood Pressure 113/52 L Blood Pressure [Ri ght Arm] Pulse Oximetry 96 96 95 [facility] 08/19/22 12:01 08/19/22 12:02 08/19/22 12:30 Temperature Pulse Rate 83 78 77 Pulse Rate [Pulse Oximeter] Respiratory Rate Blood Pressure 131/68 Blood Pressure [Ri ght Arm] Pulse Oximetry 96 95 95 [facility] 08/19/22 12:31 08/19/22 13:00 08/19/22 13:01 Temperature Pulse Rate 77 79 78 Pulse Rate [Pulse Oximeter] Respiratory Rate Blood Pressure 137/50 L 128/56 L Blood Pressure [Ri ght Arm] Pulse Oximetry 96 96 95 Oxygen Delivery [place] thod 08/19/22 13:02 08/19/22 13:30 08/19/22 13:32 Temperature Pulse Rate 78 77 78 Pulse Rate [Pulse Oximeter] Respiratory Rate Blood Pressure 152/67 H Blood Pressure [Ri ght Arm] Pulse Oximetry 95 95 95 Oxygen Delivery Oh thod 08/19/22 14:00 08/19/22 14:02 08/19/22 14:32 Temperature 97.4 F L Pulse Rate 80 81 Pulse Rate [Pulse Oximeter] 77 Respiratory Rate 16 Blood Pressure 142/73 H Blood Pressure [Ri ght Arm] 134/58 L Pulse Oximetry 94 94 95 Oxygen Delivery Me thod Room Air 08/19/22 14:38 08/19/22 15:19 08/19/22 19:05 Temperature 98.3 F Pulse Rate 78 Pulse Rate [Pulse Oximeter] 81 Respiratory Rate 16 Blood Pressure Blood Pressure [Ri ght Arm] 136/53 L Pulse Oximetry 95 96 Oxygen Delivery Me thod Room Air Room Air 08/20/22 00:47 08/20/22 00:52 08/20/22 03:32 Temperature 97.9 F 98.3 F Pulse Rate 83 Pulse Rate [Pulse Oximeter] 73 80 Respiratory Rate 16 16 Blood Pressure Blood Pressure [Ri ght Arm] 114/55 L 126/67 Pulse Oximetry 93 99 Oxygen Delivery Me thod Room Air Room Air 08/20/22 08:00 08/20/22 08:00 Temperature 97.7 F Pulse Rate Pulse Rate [Pulse Oximeter] 76 Respiratory Rate 16 16 Blood Pressure Blood Pressure [Ri ght Arm] 139/61 Pulse Oximetry 97 Oxygen Delivery Me thod Room Air Labs/Imaging Labs Labs: No leukocytosis. CRP 8. Imaging Imaging: No new imaging Progress Note: A&P Assessment and plan (1) Diverticulitis: Problem details: CT diagnosis a sigmoid diverticulitis 05/23/2022, August 01 2022, 08/19/2022 Consult surgery. Concern for 3 months of diverticulitis it has not resolved. Outpatient IV antibiotic with ertapenem when clinically improved. Status: Acute Assessment and Plan: patient is an 86-year-old female presents with an acute on chronic diverticulitis. Vital signs stable overnight. Her labs are significant for a slight elevation in CRP ( 5--8) but no leukocytosis. Clinically her abdominal pain has improved and her exam is benign. She is tolerating a diet without difficulty. Only concern is persistent dizziness with standing. Orthostatic vitals have been ordered but are pending, with the hospitalist continuing to follow and manage her medical comorbidities. Recommend continued medical management for her diverticular disease. - IV Ertapenem - clear liquid diet, advanced as tolerated to soft diet. Would recommend continuing a soft, low-fiber diet at the time of discharge - trend fever and WBC - anticipate discharge in today versus tomorrow At the time of discharge I would recommend that the patient continue on IV antibiotics for a 10 day course. Would then plan to see the patient in clinic for evaluation of transitioning to a course of oral antibiotics. Given the evidence of smoldering/chronic diverticular disease surgery is reasonable, but ideally would be done as an outpatient. Would also recommend a colonoscopy as it has been several years since patients last one.
[2022-08-20] MEDS: ERTAPENEM 1 GM in 0.9 % SODIUM CHLORIDE Mini-bag 100 ML IVPB (15:02)
--- NOTE | 2022-08-20 17:27 | PM.IMPN1 ---
Progress Note: A&P Assessment and plan (1) Syncope: Problem details: Despite IV hydration and antibiotics, she still having the syncopal episodes. There was no obvious nystagmus or positional vertigo noted. I wonder she is having an autonomic failure secondary to her postural hypotension. We will continue to follow this but a trial of midodrine 5 mg scheduled is appropriate. Status: Acute (2) Diverticulitis: Problem details: CT diagnosis a sigmoid diverticulitis 05/23/2022, August 01 2022, 08/19/2022 Consult surgery. Concern for 3 months of diverticulitis it has not resolved. Outpatient IV antibiotic with ertapenem when clinically improved. Consider follow-up with general surgery post hospitalization. Status: Acute (3) Essential hypertension: Problem details: Blood pressure medicines will be held at this time due to syncope in the context of acute illness. Status: Acute Subjective Date Seen: 08/20/22 Interval history: Daily Progress Note - Hospital Medicine Day #: 2 CC: Syncope, vasovagal sensation/syncope, acute diverticulitis OVERNIGHT UPDATES FROM STAFF & MED, LAB, IMAGING UPDATES -patient states she feels much better today, especially from an abdominal perspective. She said it is slightly tender in her right lower quadrant but this is much improved. She is able to walk the halls with PT. Interestingly when her orthostatics were done and she went from a lying to a sitting position she felt very lightheaded and almost as if she was going to pass out. However her systolic blood pressure remained fairly stable. When she did stand up after recovering from that initial sensation she did note a blood pressure that dropped into the 80s. Afebrile. Blood pressure 133/59. At 11:00 a.m. this morning orthostatics were done: The showed a lying right arm blood pressure 117/51, a sitting right arm blood pressure 112/58, standing right arm blood pressure 86/52 CBC shows a mild drop in her hemoglobin, this is likely from fluids and hemo dilation. CRP is going up 5.5-8.[address] abdomen pelvis upon arrival and admission to the hospital Improved inflammatory changes of the mid sigmoid colon from comparison with interval development of new focal thickening and pericolonic inflammation of the rectosigmoid colon, distal from previous site likely representing new acute and/or recurrent diverticulitis changes. Otherwise, stable appearance of the abdomen from comparison. Head CT done at admission 1. Posterior scalp hematoma without calvarial fracture or intracranial bleed. 2. Nonspecific white matter disease, likely microangiopathy. Objective: Vitals: see above Lungs: Clear. Cardiac: S1S2. Disposition/Potential discharge - Likely to return to previous living situation. Total time is 35 minutes with greater than 50% spent in counseling and coordination of care. Exam Const: Vital Signs, click to edit/add: Vital Signs - 24 hr 08/19/22 19:05 08/20/22 00:47 08/20/22 00:52 Temperature 98.3 F 97.9 F Pulse Rate 83 Pulse Rate [Pulse Oximeter] 81 73 Respiratory Rate 16 16 Blood Pressure [Ri ght Arm] 136/53 L 114/55 L Blood Pressure [or thostatic lying Ri ght Arm] Blood Pressure [or thostatic sitting Right Arm] Blood Pressure [or thostatic standing Right Arm] Pulse Oximetry 96 93 Oxygen Delivery Me thod Room Air Room Air 08/20/22 03:32 08/20/22 08:00 08/20/22 08:00 Temperature 98.3 F 97.7 F Pulse Rate Pulse Rate [Pulse Oximeter] 80 76 Respiratory Rate 16 16 16 Blood Pressure [Ri ght Arm] 126/67 139/61 Blood Pressure [or thostatic lying Ri ght Arm] Blood Pressure [or thostatic sitting Right Arm] Blood Pressure [or thostatic standing Right Arm] Pulse Oximetry 99 97 Oxygen Delivery Me thod Room Air Room Air 08/20/22 07:45 08/20/22 11:50 08/20/22 16:39 Temperature 97.4 F L Pulse Rate 77 Pulse Rate [Pulse Oximeter] 69 Respiratory Rate 16 Blood Pressure [Ri ght Arm] 133/59 L Blood Pressure [or thostatic lying Ri ght Arm] 117/51 L Blood Pressure [or thostatic sitting Right Arm] 112/58 L Blood Pressure [or thostatic standing Right Arm] 86/52 L Pulse Oximetry 98 Oxygen Delivery Me thod Room Air 08/20/22 15:45 Temperature Pulse Rate Pulse Rate [Pulse Oximeter] 69 Respiratory Rate 16 Blood Pressure [Ri ght Arm] Blood Pressure [or thostatic lying Ri ght Arm] Blood Pressure [or thostatic sitting Right Arm] Blood Pressure [or thostatic standing Right Arm] Pulse Oximetry Oxygen Delivery Me thod Labs Labs: Laboratory Results - last 24 hr 08/20/22 08/20/22 05:51 05:51 WBC 7.07 RBC 3.68 L Hgb 10.6 L Hct 33.0 MCV 90 MCH 29 MCHC 32 RDW Coeff of [place] 13.2 Plt Count 178 Neut % (Auto) 66.2 Lymph % (Auto) 22.5 [place] % (Auto) 9.2 Eos % (Auto) 1.7 Baso % (Auto) 0.3 Neut # (Auto) 4.68 Lymph # (Auto) 1.59 [place] # (Auto) 0.70 Eos # (Auto) 0.12 Baso # (Auto) 0.02 C-Reactive Protein 8.3 H
[2022-08-20] MEDS: SIMVASTATIN 10 MG TABLET PO (20:48)
[2022-08-20] MEDS: MIDODRINE HCL 5 MG TABLET PO (20:48)
[2022-08-21] VITALS (9 sets, daily range): BP systolic 100–145; BP diastolic 56–81; PULSE 55–82; RESP 16–63; TEMP 36.3–37.1; O2SAT 97–99
--- NOTE | 2022-08-21 06:24 | PC.NURSE ---
pt is alert and oriented. Denies pain or discomfort. pt slept almost all shift. C/o dizziness after taking Midodrine. BP stable. No c/o nausea or SOB.. Not able to ascertain it was the medication.
[2022-08-21 07:16] LABS: HCO3 VBG 28 mmol/L (21-28); Ionized Calcium* 1.13 mmol/L (1.11-1.30); PCO2 VBG 44 mmHG (40-50); PO2 VBG 43.5 mmHG (25-47); pH VBG 7.413 (7.32-7.43)
[2022-08-21 07:27] LABS: Basophils Absolute Auto 0.01 K/uL (0.00-0.30); Basophils Percent Auto 0.2 % (0.0-3.0); Eosinophils Absolute Auto 0.22 K/uL (0.00-0.50); Eosinophils Percent Auto 4.4 % (0.0-7.0); Hematocrit 35.1 % (33.0-51.0); Hemoglobin* 11.2 gm/dL (12.0-16.0); Lymphocytes Absolute Auto 1.51 K/uL (0.90-2.90); Lymphocytes Percent Auto 30.4 % (20-44); Mean Corpuscular HGB Conc 32 gm/dL (32-36); Mean Corpuscular Hemoglobin 28 pg (26-34); Mean Corpuscular Volume 89 fL (80-100); Monocytes Percent Auto 8.9 % (0.0-11.0); Neutrophils Absolute Auto 2.78 K/uL (1.7-7.0); Neutrophils Percent Auto 56.1 % (42.0-72.0); Platelet Count* 195 K/uL (140-440); Red Blood Count 3.95 m/uL (4.00-5.20); White Blood Count* 4.96 K/uL (4.50-11.00)
[2022-08-21 07:31] LABS: Slide Review Reflex No
[2022-08-21 07:38] LABS: Albumin* 3.5 g/dL (3.3-5.0); Chloride* 112 mmol/L (96-114); Potassium* 4.4 mmol/L (3.6-5.1); Sodium* 142 mmol/L (135-149)
[2022-08-21 07:40] LABS: Creatinine* 0.7 mg/dL (0.5-1.5); Est. Creatinine Clearance* 31.58; Estimated Glomerular Filt Rate 85 ml/min
[2022-08-21 07:41] LABS: Blood Urea Nitrogen* 11 mg/dL (7-30); Carbon Dioxide* 27 mmol/L (20-32); Glucose* 95 mg/dL (60-115)
[2022-08-21 07:42] LABS: Calcium* 8.5 mg/dL (8.4-10.6); Magnesium* 2.3 mg/dL (1.5-2.6)
[2022-08-21 07:44] LABS: C Reactive Protein* 4.6 mg/dL (0.5-1.0)
[2022-08-21 07:58] LABS: Procalcitonin* 0.06 ng/mL (<0.50)
[2022-08-21 08:00] LABS: NT Pro B Type NatriureticPept* 146 pg/mL; Troponin I* < 0.01 ng/mL (0.01-0.04)
--- NOTE | 2022-08-21 09:00 | P.IMPN_ITS ---
Progress Note: A&P Assessment and plan (1) Syncope: Problem details: Despite IV hydration and antibiotics, she still having the syncopal episodes. There was no obvious nystagmus or positional vertigo noted. I wonder she is having an autonomic failure secondary to her postural hypotension. Of note her Norvasc is on hold. -trial of midodrine didn't go well last night. She felt crappy taking this medication. -willing to try 2.5mg Status: Acute (2) Diverticulitis: Problem details: CT diagnosis a sigmoid diverticulitis 05/23/2022, August 01 2022, 08/19/2022 Consult surgery. Concern for 3 months of diverticulitis it has not resolved. Outpatient IV antibiotic with ertapenem when clinically improved. Consider follow-up with general surgery post hospitalization. Status: Acute (3) Essential hypertension: Problem details: Blood pressure medicines will be held at this time due to syncope in the context of acute illness. Status: Acute (4) UTI (urinary tract infection): Problem details: ecoli with some resistance. not ESBL however ertapenem sensitive. will continue abx. Status: Acute Subjective Date Seen: 08/21/22 Interval history: Daily Progress Note - Hospital Medicine Day #: 3 Ertapenem Dose #3 will be today CC: Syncope, vasovagal sensation/syncope, acute diverticulitis OVERNIGHT UPDATES FROM STAFF & MED, LAB, IMAGING UPDATES She is afebrile. Blood pressure overnight has been 133, 140, 124 and 123. After receiving 5 mg of midodrine patient felt a little ?crummy? she describes feeling of vibration, lightheaded. Her telemetry is been quiet all night. She has not been hypoxic. She is normal sinus rhythm. As described yesterday in my note she did have a episode of orthostatic hypotension and presyncope. This is less likely to be from infection/dehydration and more likely an autonomic. Her labs today are all reassuring. Her hemoglobin is stable. There is no leukocytosis. Platelets are stable. PH is normal. CRP is down trending. Her troponin is undetectable. Her procalcitonin is normal. Her albumin is normal. Her magnesium is normal. All of her electrolytes are reassuring and unremarkable. C diff negative. CT abdomen pelvis upon arrival and admission to the hospital Improved inflammatory changes of the mid sigmoid colon from comparison with interval development of new focal thickening and pericolonic inflammation of the rectosigmoid colon, distal from previous site likely representing new acute and/or recurrent diverticulitis changes. Otherwise, stable appearance of the abdomen from comparison. Head CT done at admission 1. Posterior scalp hematoma without calvarial fracture or intracranial bleed. 2. Nonspecific white matter disease, likely microangiopathy. Objective: Vitals: see above Lungs: Clear. Cardiac: S1S2. Disposition/Potential discharge - Likely to return to previous living situation. Total time is 35 minutes with greater than 50% spent in counseling and coordination of care. Exam Const: Vital Signs, click to edit/add: Vital Signs - 24 hr 08/20/22 11:50 08/20/22 16:39 08/20/22 15:45 Temperature 97.4 F L Pulse Rate Pulse Rate [Pulse Oximeter] 69 69 Respiratory Rate 16 16 Blood Pressure [Ri ght Arm] 133/59 L Blood Pressure [or thostatic lying Ri ght Arm] 117/51 L Blood Pressure [or thostatic sitting Right Arm] 112/58 L Blood Pressure [or thostatic standing Right Arm] 86/52 L Pulse Oximetry 98 Oxygen Delivery Me thod Room Air 08/20/22 17:05 08/20/22 20:12 08/20/22 23:32 Temperature 97.8 F 98.0 F Pulse Rate 69 Pulse Rate [Pulse Oximeter] 74 65 Respiratory Rate 16 16 Blood Pressure [Ri ght Arm] 140/63 H 124/57 L Blood Pressure [or thostatic lying Ri ght Arm] Blood Pressure [or thostatic sitting Right Arm] Blood Pressure [or thostatic standing Right Arm] Pulse Oximetry 96 98 Oxygen Delivery Me thod Room Air Room Air 08/21/22 00:29 08/21/22 04:06 Temperature 97.6 F Pulse Rate 73 Pulse Rate [Pulse Oximeter] 62 Respiratory Rate 16 Blood Pressure [Ri ght Arm] 123/56 L Blood Pressure [or thostatic lying Ri ght Arm] Blood Pressure [or thostatic sitting Right Arm] Blood Pressure [or thostatic standing Right Arm] Pulse Oximetry 98 Oxygen Delivery Me thod Room Air Labs Labs: Laboratory Results - last 24 hr 08/21/22 08/21/22 08/21/22 06:42 06:42 06:42 WBC Cancelled RBC Cancelled Hgb Cancelled Hct Cancelled MCV Cancelled MCH Cancelled MCHC Cancelled RDW Coeff of Olivia Plt Count Cancelled Neut % (Auto) Lymph % (Auto) [place] % (Auto) Eos % (Auto) Baso % (Auto) Neut # (Auto) Lymph # (Auto) [place] # (Auto) Eos # (Auto) Baso # (Auto) VBG pH 7.413 VBG pCO2 44 VBG pO2 43.5 VBG HCO3 28 Sodium 142 Potassium 4.4 Chloride 112 Carbon Dioxide 27 BUN 11 Creatinine 0.7 Estimated Creat Clear 31.58 Estimated GFR 85 Glucose 95 Calcium 8.5 Ionized Calcium [place] 1.13 Magnesium 2.3 Troponin I < 0.01 L C-Reactive Protein 4.6 H NT-Pro-B Natriuret Pep 146 Albumin 3.5 Procalcitonin 0.06 08/21/22 06:42 WBC 4.96 RBC 3.95 L Hgb 11.2 L Hct 35.1 MCV 89 MCH 28 MCHC 32 RDW Coeff of Olivia 13.0 Plt Count 195 Neut % (Auto) 56.1 Lymph % (Auto) 30.4 [place] % (Auto) 8.9 Eos % (Auto) 4.4 Baso % (Auto) 0.2 Neut # (Auto) 2.78 Lymph # (Auto) 1.51 [place] # (Auto) 0.40 Eos # (Auto) 0.22 Baso # (Auto) 0.01 VBG pH VBG pCO2 VBG pO2 VBG HCO3 Sodium Potassium Chloride Carbon Dioxide BUN Creatinine Estimated Creat Clear Estimated GFR Glucose Calcium Ionized Calcium [place] Magnesium Troponin I C-Reactive Protein NT-Pro-B Natriuret Pep Albumin Procalcitonin
[2022-08-21] MEDS: MIDODRINE HCL 5 MG TABLET 2.5 MG PO ×2 (09:58→15:41)
[2022-08-21] MEDS: timoloL maleate 0.5 % 1 DROP EYE-BOTH (09:58)
[2022-08-21] MEDS: ERTAPENEM 1 GM in 0.9 % SODIUM CHLORIDE Mini-bag 100 ML IVPB (15:36)
--- NOTE | 2022-08-21 16:03 | PC.NURSE ---
End of Shift: Patient pleasant and cooperative. Afebrile. Denies pain. C/o some shakiness, eyes go black with position changes. Orthostatic BP done. Up to bathroom and chair with SBA and gait belt. Tolerating regular diet with no nausea. No BM this shift.
[2022-08-21] MEDS: SIMVASTATIN 10 MG TABLET PO (20:35)
[2022-08-21] MEDS: ENOXAPARIN 40 MG/0.4 ML INJ SUBCUT (20:35)
[2022-08-21] MEDS: SODIUM CHLORIDE 0.9 % (FLUSH) 10 ML SYRINGE 5 ML IVF (20:35)
[2022-08-22] VITALS (8 sets, daily range): BP systolic 120–154; BP diastolic 52–68; PULSE 55–71; RESP 16–18; TEMP 36.3–37.2; O2SAT 97–100
--- NOTE | 2022-08-22 06:30 | PC.NURSE ---
Shift note:Pt reported overall feeling better, she still feel lightheaded when getting up and then when laying back down.
[2022-08-22 06:32] LABS: Basophils Percent Auto 0.3 % (0.0-3.0); Hematocrit 34.7 % (33.0-51.0); Hemoglobin* 11.1 gm/dL (12.0-16.0); Lymphocytes Percent Auto 49.7 % (20-44); Mean Corpuscular HGB Conc 32 gm/dL (32-36); Mean Corpuscular Hemoglobin 28 pg (26-34); Mean Corpuscular Volume 89 fL (80-100); Monocytes Percent Auto 8.8 % (0.0-11.0); Neutrophils Percent Auto 36.2 % (42.0-72.0); Platelet Count* 208 K/uL (140-440); RDW Coefficient of Variation % 13.1 % (11.5-15.5); Red Blood Count 3.91 m/uL (4.00-5.20); White Blood Count* 3.98 K/uL (4.50-11.00)
[2022-08-22 06:36] LABS: Slide Review Reflex No
[2022-08-22 07:02] LABS: C Reactive Protein* 2.5 mg/dL (0.5-1.0)
[2022-08-22] MEDS: SODIUM CHLORIDE 0.9 % (FLUSH) 10 ML SYRINGE 5 ML IVF ×2 (07:57→20:32)
[2022-08-22] MEDS: timoloL maleate 0.5 % 1 DROP EYE-BOTH (07:57)
[2022-08-22] MEDS: MIDODRINE HCL 5 MG TABLET 2.5 MG PO ×2 (07:59→16:00)
--- NOTE | 2022-08-22 08:00 | CRLHL7_ITS ---
For Patients: As a result of the Century Cures Act, medical imaging exams and procedure reports are released immediately into your electronic medical record. You may view this report before your referring provider. If you have questions, please contact your health care provider. INDICATION: Weakness COMPARISON: October 04, 2017 TECHNIQUE: Single-view examination August 22, 2022 at 6:49 a.m. FINDINGS: TUBES AND LINES: None. HEART AND MEDIASTINUM: Mildly enlarged heart unchanged in appearance. LUNGS AND PLEURAL SPACES: The lungs appear normal.The pleural spaces are unremarkable. OSSEOUS STRUCTURES: Demineralization, degenerative changes and scoliosis IMPRESSION: Mildly enlarged heart unchanged in appearance. No focal lung finding. Scoliosis. Dictated by Santosh Jorge MD @ 08/22/2022 7:12:48 AM (Electronically Signed)
--- NOTE | 2022-08-22 10:52 | NUTR.NU ---
RDN with MD consult for weight loss. RDN visited with patient and her designated caregiver (Emilia) whom reported no weight loss recently. Her appetite has been ok, however she has been experiencing abdominal pain. She is having a flare of diverticulitis. She reports she may be going home as early as tomorrow. Per MD report, MD recommends patient follow a soft diet at discharge until follow-up in a few weeks. Patient and designated caregiver agreed to receive diet education on a low-fiber/soft diet. Patient was provided diet education on a low fiber diet. Discussed foods to include and foods to avoid until MD recommends advancing diet. Education was provided on following low-fiber/soft diet for the next few weeks (white bread products, low-fat dairy, tender meats, canned fruits and vegetables, etc). Verbal and written information as well as sample menus provided on both diets from AND [facility]. Patient verbalized understanding. RDN's contact information was provided and patient was encouraged to contact RDN with questions.
--- NOTE | 2022-08-22 11:33 | P.IMPN_ITS ---
Progress Note: A&P Assessment and plan (1) Syncope: Problem details: - + orthostatic hypotension, holding Norvasc - trial of 5mg midodrine didn't go well; she felt crappy taking this medication. - tolerating 2.5mg of Midodrine without untoward effects Status: Acute (2) Diverticulitis: Problem details: - CT diagnosis a sigmoid diverticulitis 05/23/2022, August 01 2022, 08/19/2022 - Consult surgery. Concern for 3 months of diverticulitis it has not resolved. Outpatient IV antibiotic with ertapenem when clinically improved - Consider follow-up with general surgery post hospitalization. Status: Acute (3) Essential hypertension: Problem details: - holding home medications 2/2 orthostatic hypotension Status: Acute (4) UTI (urinary tract infection): Problem details: - ecoli with some resistance. not ESBL however ertapenem sensitive. will continue abx. 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: Problem details: - patient notes brain fog and dizziness since COVID diagnosis remotely - also had a head injury upon admission after syncopal episode; has worked with therapies to help tease out concussion symptoms vs long COVID - she is working with a post COVID team at [place] Status: Acute Plan - per above - continue holding home blood pressure medications, continue low-dose midodrine and therapies - Lovenox for prophylaxis - likely discharge home tomorrow, will arrange for once daily outpatient ertapenem - daughter present, updated at bedside Subjective Date Seen: 08/22/22 Interval history: Shannen is a 86 yo female who presented to the hospital on 08/19 for syncope, noted to have persistent diverticulitis on imaging as well. Tolerating IV Ertapenem. She also tolerated the lower dose of Midodrine well; continues to have symptomatic orthostasis. Working with therapies; likely will be discharging home tomorrow. Exam Narrative: Exam Narrative: GEN: Alert and oriented, sitting in bedside chair and answering questions appropriately HEENT: EOMIs bilaterally, no scleral icterus CV: RRR, No concerning murmurs, rubs, or gallops. No carotid bruits R: LCTA bilaterally without concerning wheezing, rales, or rhonchi Ext: wwp, no edema Skin: No concerning skin lesions or rashes on exposed skin Neuro: Nonfocal Psych: Appropriate Const: Vital Signs, click to edit/add: Vital Signs - 24 hr 08/21/22 16:49 08/21/22 16:00 08/21/22 19:02 Temperature 97.3 F L 97.5 F L Pulse Rate 79 Pulse Rate [Pulse Oximeter] 63 68 Respiratory Rate 63 H 18 Blood Pressure [Ri ght Arm] 133/70 133/70 Pulse Oximetry 97 97 Oxygen Delivery Me thod Room Air Room Air 08/21/22 23:00 08/21/22 23:00 08/21/22 23:00 Temperature 98.8 F Pulse Rate 55 L Pulse Rate [Pulse Oximeter] 55 L 63 Respiratory Rate 18 18 Blood Pressure [Ri ght Arm] 124/81 Pulse Oximetry 99 Oxygen Delivery Me thod Room Air 08/22/22 03:00 08/22/22 08:03 08/22/22 07:00 Temperature 99 F Pulse Rate 71 Pulse Rate [Pulse Oximeter] 55 L 65 Respiratory Rate 16 18 Blood Pressure [Ri ght Arm] 120/55 L Pulse Oximetry 97 99 Oxygen Delivery Me thod Room Air Room Air Labs Labs: Laboratory Results - last 24 hr 08/22/22 08/22/22 05:54 05:54 WBC 3.98 L RBC 3.91 L Hgb 11.1 L Hct 34.7 MCV 89 MCH 28 MCHC 32 RDW Coeff of Olivia 13.1 Plt Count 208 Neut % (Auto) 36.2 L Lymph % (Auto) 49.7 H [place] % (Auto) 8.8 Eos % (Auto) 5.0 Baso % (Auto) 0.3 Neut # (Auto) 1.40 L Lymph # (Auto) 2.00 [place] # (Auto) 0.40 Eos # (Auto) 0.20 Baso # (Auto) 0.00 C-Reactive Protein 2.5 H
[2022-08-22] MEDS: 0.9 % SODIUM CHLORIDE 250 ml IV (14:43)
[2022-08-22] MEDS: ERTAPENEM 1 GM in 0.9 % SODIUM CHLORIDE Mini-bag 100 ML IVPB (14:43)
--- NOTE | 2022-08-22 15:15 | PC.NURSE ---
Pt is alert and oriented x3. Afebrile. Pt denies pain, chest pain SOB and N/V.? Pt continues to feel dizzy when changing positions, MD aware. Pt is tolerating regular?diet. Pt is up with SBA with walker and gait belt. Pt is slightly [place], pt has and uses hearing aids.?
[2022-08-22] MEDS: ENOXAPARIN 40 MG/0.4 ML INJ SUBCUT (20:31)
[2022-08-22] MEDS: SIMVASTATIN 10 MG TABLET PO (20:31)
--- NOTE | 2022-08-22 22:36 | PC.NURSE ---
Shift [id number]- Patient has dizziness with positional changes, even from standing/sitting to lying down. New IV to left forearm, previous IV discontinued with catheter intact. She is up with SBA and tolerates well. No complaints of pain.
[2022-08-23 03:00] VITALS: BP 138/68; PULSE 65; RESP 16; TEMP 36.6; O2SAT 96
[2022-08-23 06:39] LABS: Basophils Percent Auto 0.5 % (0.0-3.0); Eosinophils Percent Auto 4.6 % (0.0-7.0); Hematocrit 35.9 % (33.0-51.0); Hemoglobin* 11.5 gm/dL (12.0-16.0); Immature Granulocytes Pct Auto 0.2 %; Lymphocytes Percent Auto 42.9 % (20-44); Mean Corpuscular HGB Conc 32 gm/dL (32-36); Mean Corpuscular Hemoglobin 28 pg (26-34); Mean Corpuscular Volume 88 fL (80-100); Neutrophils Percent Auto 42.8 % (42.0-72.0); Platelet Count* 232 K/uL (140-440); RDW Coefficient of Variation % 13.1 % (11.5-15.5); Red Blood Count 4.09 m/uL (4.00-5.20); White Blood Count* 4.13 K/uL (4.50-11.00)
[2022-08-23 06:42] LABS: Slide Review Reflex No
--- NOTE | 2022-08-23 06:46 | PC.NURSE ---
VSS on RA. Patient is alert and oriented x3, able to verbalize needs to staff using call light. Patient denies pain on assessment. Assist of one with transfers, up to BR x2. Continent of bowel and bladder, appears stable. Call light within reach.
[2022-08-23 06:50] LABS: Chloride* 110 mmol/L (96-114)
[2022-08-23 06:51] LABS: Albumin* 3.5 g/dL (3.3-5.0); Potassium* 4.2 mmol/L (3.6-5.1); Sodium* 141 mmol/L (135-149)
[2022-08-23 06:54] LABS: Alanine Aminotransferase* 15 U/L (4-35); Alkaline Phosphatase* 55 U/L (40-150); Aspartate Amino Transferase* 19 U/L (12-35); Bilirubin Total* 0.6 mg/dL (0.1-1.5); Blood Urea Nitrogen* 12 mg/dL (7-30); Carbon Dioxide* 26 mmol/L (20-32); Creatinine* 0.7 mg/dL (0.5-1.5); Est. Creatinine Clearance* 31.58; Estimated Glomerular Filt Rate 85 ml/min; Glucose* 91 mg/dL (60-115)
[2022-08-23 06:55] LABS: Calcium* 8.7 mg/dL (8.4-10.6)
[2022-08-23 06:57] LABS: C Reactive Protein* 1.5 mg/dL (0.5-1.0)
[2022-08-23 07:00] VITALS: BP 132/70; PULSE 63; PULSE 73; RESP 14; TEMP 36.7; O2SAT 98
[2022-08-23] MEDS: timoloL maleate 0.5 % 1 DROP EYE-BOTH (09:07)
[2022-08-23] MEDS: SODIUM CHLORIDE 0.9 % (FLUSH) 10 ML SYRINGE 5 ML IVF (09:08)
[2022-08-23] MEDS: MIDODRINE HCL 5 MG TABLET 2.5 MG PO (09:08)
[2022-08-23] MEDS: ACETAMINOPHEN 325 MG TABLET 650 MG PO (09:25)
--- NOTE | 2022-08-23 10:57 | P.DS_ITS ---
DS: Providers Provider Date Seen: 08/23/22 Date of admission: 08/19/22 15:04 Primary care physician: Neema Koenig MD Admitting Clinician: Jordan Monreal MD Consults: PT, OT, Nutrition, General Surgery Attending Physician on discharge: Betsey Alaniz MD Date of Discharge: 08/23/22 DS: Diagnosis Discharge Diagnosis (1) Syncope: Status: Acute Problem details: - + orthostatic hypotension, holding Norvasc - trial of 5mg midodrine didn't go well; she felt crappy taking this medi cation. - tolerating 2.5mg of Midodrine BID on discharge without untoward effects - no further syncopal episodes during stay (2) Aortic regurgitation: Status: Acute Problem details: - severe; noted on 08/22 TTE - reviewed with Dr. Brooks of [facility]; patient needs ana f/u appt with Cardiology to discuss findings and options - okay to continue low dose Midodrine in the meantime given patient's symptomatic orthostatic hypotension (3) Orthostatic hypotension: Status: Acute Problem details: - noted throughout stay, improved with Midodrine per #1 (4) [id number] syndrome: Status: Acute Problem details: - patient notes brain fog and dizziness since COVID diagnosis remotely - also had a head injury upon admission after syncopal episode; has worked with therapies to help tease out concussion symptoms vs long COVID - she is working with a post COVID team at [place] for her symptoms (5) UTI (urinary tract infection): Status: Acute Problem details: - ecoli with some resistance. not ESBL however ertapenem sensitive. will continue abx. (6) Diverticulitis: Status: Acute Problem details: - CT diagnosed sigmoid diverticulitis 05/23/2022, 08/01/2022, 08/19/2022 - Seen by Dr. Jo of General Surgery during stay - Continue IV Ertapenem for total of 10 days of therapy - appt made upon discharge for General Surgery followup (7) Essential hypertension: Status: Acute Problem details: - holding home medications 2/2 orthostatic hypotension DS: Summary Hospital Course Hospital Course: Shannen is a pleasant 86-year-old female, admitted to the hospital for a syncopal episode at home. Admission imaging revealed diverticulitis (persistent, noted on imaging in July as well). Patient had no signs or symptoms of sepsis and was treated with IV ertapenem. She had no further syncopal episodes during stay; however, had quite symptomatic orthostatic hypotension. Her amlodipine was held and low-dose midodrine started and tolerated. TTE obtained and revealed severe aortic regurgitation; close cardiology follow- up will be scheduled upon discharge. Shannen was seen by therapies throughout stay, no need for TCU identified. Daughter Emilia lives locally and is involved with patient's care. Patient is discharged home on 08/23/22 with the following plans: - cardiology appointment next week to discuss severe AR - IV ertapenem for 5 more days as an outpatient to complete 10 day course - general surgery follow-up next week for re-evaluation and discussion of further workup for diverticulitis - PCP follow-up in 2 weeks to review hospital course and findings as well as specialty recommendations Status at Discharge Functional status at discharge: independent ambulation Overall status at discharge: patient is progressing back to baseline Time Spent with Patient Time attestation: Total time spent providing and/or coordinating discharge services: Time spent: Greater than 30 minutes Specific discharge activities: Specialty scheduling and coordination, Exam Narrative: Exam Narrative: GEN: Alert and oriented, sitting comfortably in bedside chair and nontoxic HEENT: Normal external ears, EOMIs bilaterally, no scleral icterus CV: RRR, No concerning murmurs noted R: LCTA bilaterally without concerning wheezing, rales, or rhonchi Ext: wwp, no concerning edema Skin: No concerning skin lesions or rashes on exposed skin Neuro: No focal deficits Psych: Appropriate Const: Vital Signs, click to edit/add: Vital Signs - 24 hr 08/22/22 11:00 08/22/22 15:41 08/22/22 16:05 Temperature 98.3 F 97.6 F Pulse Rate 64 Pulse Rate [Pulse Oximeter] 61 68 Respiratory Rate 16 18 Blood Pressure [Ri ght Arm] 128/52 L 142/65 H Pulse Oximetry 98 100 Oxygen Delivery Me thod Room Air Room Air 08/22/22 19:05 08/22/22 23:00 08/22/22 23:00 Temperature 97.3 F L 97.9 F Pulse Rate Pulse Rate [Pulse Oximeter] 68 61 61 Respiratory Rate 18 18 18 Blood Pressure [Ri ght Arm] 154/68 H 131/53 L Pulse Oximetry 98 97 Oxygen Delivery Me thod Room Air Room Air 08/23/22 03:00 08/22/22 23:00 08/23/22 07:00 Temperature 97.8 F Pulse Rate 59 L Pulse Rate [Pulse Oximeter] 65 73 Respiratory Rate 16 14 Blood Pressure [Ri ght Arm] 138/68 Pulse Oximetry 96 Oxygen Delivery Me thod Room Air 08/23/22 07:00 08/23/22 07:00 Temperature 98.0 F Pulse Rate 63 Pulse Rate [Pulse Oximeter] 73 Respiratory Rate 14 Blood Pressure [Ri ght Arm] 132/70 Pulse Oximetry 98 Oxygen Delivery Me thod Room Air DS: Data Data Completed and Pending Labs on day of discharge: Labs from last 24 hours 08/23/22 08/23/22 05:58 05:58 WBC 4.13 L RBC 4.09 Hgb 11.5 L Hct 35.9 MCV 88 MCH 28 MCHC 32 RDW Coeff of [place] 13.1 Plt Count 232 Neut % (Auto) 42.8 Lymph % (Auto) 42.9 [place] % (Auto) 9.0 Eos % (Auto) 4.6 Baso % (Auto) 0.5 Neut # (Auto) 1.80 Lymph # (Auto) 1.80 [place] # (Auto) 0.40 Eos # (Auto) 0.20 Baso # (Auto) 0.00 Sodium 141 Potassium 4.2 Chloride 110 Carbon Dioxide 26 BUN 12 Creatinine 0.7 Estimated Creat Clear 31.58 Estimated GFR 85 Glucose 91 Calcium 8.7 Total Bilirubin 0.6 AST 19 ALT 15 Alkaline Phosphatase 55 C-Reactive Protein 1.5 H Total Protein 6.0 Albumin 3.5 Discharge Plan Discharge Disposition: Home, Self-Care Date of Admission: 08/19/22 15:04 Attending Provider on Discharge: Betsey Alaniz Consulting Providers: Alize Jo Primary Care Provider: Neema Koenig Condition: Improved Anticipated Discharge Date/Time: 08/23/22 13:00 Discharge Medications: New midodrine 5 mg Tablet 2.5 mg PO BID@09,16 30 Days Qty: 60 0RF ertapenem 1 gram Recon Soln 1 g IVPB Q24H 5 Days Qty: 10 0RF Continued melatonin 3 mg capsule 3 - 6 mg PO HS PRN ascorbic acid (vitamin C) 500 mg tablet 500 mg PO BID calcium carbonate 500 mg calcium (1,250 mg) tablet 500 mg PO BIDWM aspirin 81 mg tablet,delayed release (DR/EC) 81 mg PO DAILY timolol maleate 0.5 % drops 1 drp ophthalmic (eye) DAILY Label Comments: left eye simvastatin 10 mg tablet 10 mg PO HS Discontinued amlodipine 5 mg tablet 5 mg PO HS Discharge Orders: Discharge Order (Routine); Ordered 08/23/22 Ordered By: Betsey Alaniz Patient Education: Midodrine (By mouth), Aortic Regurgitation (DC), Diverticulitis (DC) Additional Instructions: Appointments over the next few weeks with Cardiology (to discuss your aortic regurgitation), Dr. Jo (to discuss diverticulitis) and Dr. Koenig (to discuss hospital stay and findings and upcoming plans). 5 more days of IV antibiotics (covers both your diverticulitis and your UTI). NEW medication: Midodrine (for low blood pressure). You are STOPPING your Amlodipine. Make sure you're taking things SLOWLY, return to ED with any worsening symptoms or concerns. Activity Level: No strenuous activity Discharge Diet: Low Fiber Follow Up Appointments: Alize Jo MD [Staff Physician] - 08/31/22 1:45 pm ([facility] [place] location) Neema Koenig MD [Primary Care Provider] - 09/06/22 1:30 pm Madhu Disla [Staff Physician] - None Brit Jiang [Staff Physician] - 08/30/22 2:00 pm ([facility] Forms: [employer] Info Instructions
[2022-08-23 11:00] VITALS: BP 126/49; PULSE 61; RESP 16; TEMP 36.6; O2SAT 99
[2022-08-23 13:13] VITALS: BP 142/73; PULSE 63; RESP 16; TEMP 36.6
[2022-08-23] MEDS: ERTAPENEM 1 GM in 0.9 % SODIUM CHLORIDE Mini-bag 100 ML IVPB (13:24)
--- NOTE | 2022-08-23 15:52 | PC.NURSE ---
Pt alert and oriented x3, pleasant and cooperative. Pt denies pain, vomiting, chest pain and SOB. Pt continues to report nausea/dizzyness when changing positions but stated the dizziness has gotten a little better. Pt is up with SBA with walker and gait belt. Pt is tolerating a regular diet. Written and verbal education given to pt and daughter, both verbalized understanding. Pt left via wheelchair with Daughter to home. Pt IV left in for infusion of antibiotic appointment tomorrow 08/23/22.
== END 2022-08-23 14:45 | disposition home or self-care (01) | DRG 312 ==
LOC: ED 09:11 → MEDSURG 14:06
PROVIDERS: Family Medicine; Admitting Provider Family Medicine; Emergency Provider Family Medicine; PCP Internal Medicine; Visit Provider Family Medicine
DX: I95.1 Orthostatic hypotension (principal); K57.32 Diverticulitis of large intestine without perforation or abscess without bleeding; N39.0 Urinary tract infection, site not specified; I10 Essential (primary) hypertension; U09.9 Post COVID-19 condition, unspecified; I35.1 Nonrheumatic aortic (valve) insufficiency; I71.20 Thoracic aortic aneurysm, without rupture, unspecified; E78.5 Hyperlipidemia, unspecified; Z86.711 Personal history of pulmonary embolism; Z97.4 Presence of external hearing-aid
CPT/HCPCS: 36415; 70450; 71045; 74177; 80048; 80053; 80076; 81001; 82040; 82150; 82330; 82803; 83605; 83735; 83880; 84145; 84484; 85025; 85027; 85610; 86140; 87086; 87186; 87502; 87634; 87635; 93005; 93306; 97112; 97116; 97161; 97165; 97530; 97535; 99285; G0378; A9270; J1335; J1650; J2543; J7042; J7050; J7120; Q9967

== ENCOUNTER 2022-08-28 13:39 | Outpatient (RCR) | payer MEDICARE, SELFPAY ==
[2022-08-24 14:08] VITALS: BP 157/70; PULSE 71; RESP 16; TEMP 36.1; O2SAT 96
[2022-08-24] MEDS: ERTAPENEM 1 GM in 0.9 % SODIUM CHLORIDE Mini-bag 100 ML IVPB (14:20)
[2022-08-25 14:11] VITALS: BP 154/64; PULSE 74; RESP 18; TEMP 35.9; O2SAT 97
[2022-08-25] MEDS: ERTAPENEM 1 GM in 0.9 % SODIUM CHLORIDE Mini-bag 100 ML IVPB (14:31)
[2022-08-26 13:59] VITALS: BP 150/62; PULSE 70; RESP 16; TEMP 36; O2SAT 98
[2022-08-26] MEDS: ERTAPENEM 1 GM in 0.9 % SODIUM CHLORIDE Mini-bag 100 ML IVPB (14:17)
[2022-08-27 13:50] VITALS: BP 176/54; PULSE 65; RESP 16; TEMP 36.4; O2SAT 99
[2022-08-27] MEDS: ERTAPENEM 1 GM in 0.9 % SODIUM CHLORIDE Mini-bag 100 ML IVPB (13:55)
[2022-08-27 14:38] VITALS: BP 179/69; PULSE 59; RESP 16; TEMP 36.4; O2SAT 99
--- NOTE | 2022-08-27 15:04 | PC.NURSE ---
End of infusion: Patient hypertensive but vitally stable x2. IV patent and intact. Patient did report she has been more dizzy since discharging from hospital. Towards end of infusion patient had to recline chair back due to dizziness. Patient was given crackers and yogurt, patient expressed feeling better. Buttonholer did recommend to patient that if she is feeling unwell she should go to the ED rather than trying to wait until she has her cardiology appointment early next week. Patient was wheeled off unit at 1500 with daughter.
[2022-08-27] MEDS: 0.9 % SODIUM CHLORIDE 250 ml IV (15:07)
[2022-08-28 13:45] VITALS: BP 144/86; PULSE 70; RESP 16; TEMP 36.8; O2SAT 97
[2022-08-28] MEDS: ERTAPENEM 1 GM in 0.9 % SODIUM CHLORIDE Mini-bag 100 ML IVPB (14:15)
--- NOTE | 2022-08-28 15:09 | PC.NURSE ---
shift note: pt to rm [phone] via wc with daughter. IV patent with flush. vss stable. infusion done w/o complications. iv dc'd intact.
== END 2023-02-20 23:59 | disposition home or self-care (01) ==
LOC: CCIC 13:39
PROVIDERS: PCP Internal Medicine; Referring Provider Internal Medicine; Visit Provider Clinical Nurse Specialist
DX: K57.92 Diverticulitis of intestine, part unspecified, without perforation or abscess without bleeding (principal)
CPT/HCPCS: 96365; 99211; J1335; J7050

== ENCOUNTER 2023-02-03 14:18 | Emergency (ER) | payer MEDICARE, SELFPAY ==
[2023-02-03 14:24] VITALS: BP 175/81; PULSE 69; RESP 16; TEMP 36.3; O2SAT 98; BMI 18.6
--- NOTE | 2023-02-03 15:20 | ED.ARRPALP ---
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 She was at her cardiac rehab and felt some palpitations today. She was encouraged by the nurse there to come here for evaluation. She does not report any chest pain. She does report some episodes of visual changes including some flickering lights that last about 20 minutes and then resolved. She has had symptoms like this over the past years on occasion but they seem to be happening more frequently lately. She does not report any shortness of breath, lightheadedness, diaphoresis, or chest pain. Related Data Home Medications Medication Instructions Recorded Confirmed ascorbic acid (vitamin C) 500 mg 500 mg PO BID 02/28/22 01/16/23 tablet melatonin 3 mg capsule 3 - 6 mg PO HS PRN 02/28/22 01/16/23 timolol maleate 0.5 % eye drops 1 drp ophthalmic (eye) DAILY 08/19/22 01/16/23 amlodipine 5 mg tablet 5 mg PO QDAY 12/20/22 01/16/23 losartan 25 mg tablet 25 mg PO QDAY 12/20/22 01/16/23 aspirin 81 mg capsule 81 mg PO QDAY 01/16/23 01/16/23 Previous Rx's Medication Instructions Recorded simvastatin 10 mg tablet 10 mg PO HS #90 tabs 11/08/22 Allergies Allergy/AdvReac Type Severity Reaction Status Date / Time lidocaine Allergy Severe shaking Verified 01/16/23 12:37 Sulfa (Sulfonamide Allergy Unknown Unknown Verified 01/16/23 12:37 Antibiotics) Review of Systems Status of ROS: Reports: 10 or more systems reviewed and unremarkable except as noted in History and below Narrative: Constitutional: No fevers, no weight gain or loss. Eyes: No discharge. Episodes of flickering lights in her visual field occasionally. HENT: No congestion, no sore throat, no ear pain. Cardiovascular: No chest pain. Occasional palpitations. Respiratory: No shortness of breath, no wheezes, no cough. Gastrointestinal: No abdominal pain, no vomiting, no diarrhea. Genitourinary: No dysuria, no hematuria. Musculoskeletal: Normal range of motion. Skin: No rashes, no pruritis. Neurological: No dizziness, weakness, sensory change, speech change. Endo/Heme/Allergies: No bruising or bleeding. No polydipsia. Pysch: no suicidality, no anxiety, no insomnia. All other systems reviewed and are negative. [facility] Medical History (Updated 02/03/23 @ 17:07 by Neftaly Baum MD) History of aortic regurgitation ?Z86.79 - Personal history of other diseases of the circulatory system (ICD-10) History of diverticulitis ?Z87.19 - Personal history of other diseases of the digestive system (ICD-10) History of pulmonary embolism (2019) ?Z86.711 - Personal history of pulmonary embolism (ICD-10) History of giant cell arteritis (2016) ?Z86.79 - Personal history of other diseases of the circulatory system (ICD-10) Surgical History (Updated 01/12/23 @ 12:42 by Neema Koenig MD) History of tympanostomy (1971) ?Z98.890 - Other specified postprocedural states (ICD-10) History of tonsillectomy (1947) ?Z90.89 - Acquired absence of other organs (ICD-10) History of section (1960) ?Z98.891 - History of uterine scar from previous surgery (ICD-10) History of bilateral cataract extraction (2020) ?Z98.41 - Cataract extraction status, right eye (ICD-10) ?Z98.42 - Cataract extraction status, left eye (ICD-10) History of appendectomy (1949) ?Z90.49 - Acquired absence of other specified parts of digestive tract (ICD-10) Family History (Updated 08/19/22 @ 20:15 by Jordan Monreal MD) Daughter Breast cancer Mother High blood pressure Father High blood pressure Social History (Updated 08/19/22 @ 20:16 by Jordan Monreal MD) Narrative: She lives independently at [facility]. Her daughter Emilia is healthcare power of traffic law attorney. Her code status is full. She does not smoke. She does not drink alcohol. Highest level of school completed/degree received: Bachelor's degree Smoking Status: Never smoker Second hand tobacco smoke exposure: No How often do you have a drink containing alcohol: never AUDIT-C Alcohol total score: 0 Non-prescribed substance use: denies use Caffeine: No Little interest or pleasure in doing things: not at all Feeling down, depressed, or hopeless: not at all service: No Exam Narrative: Exam Narrative: Constitutional: Well-developed, well-nourished, no acute distress. HEENT: Normocephalic, atraumatic. Neck: Normal range of motion. Nontender. Supple. Heart: Regular. No murmurs. Normal rate. Intact distal pulses. Lungs: Clear to auscultation. No chest discomfort. No wheezes, rhonchi, or rales. Abdomen: Normal bowel sounds. Nontender. No rebound tenderness. Genitalia: Deferred. Back: No midline tenderness. Normal range of motion. Extremities: Normal range of motion. No injury. Skin: Intact. No rash. Warm. No erythema or pallor. Neurologic: No altered sensation. No weakness. Alert and oriented. Psychiatric: No suicidality. No anxiety or depression. No insomnia. Nursing notes and vitals signs are reviewed. Const: Vital Signs, click to edit/add: Vital Signs - 24 hr 02/03/23 14:24 Temperature 97.3 F L Pulse Rate [Pulse Oximeter] 69 Respiratory Rate 16 Blood Pressure [Ri ght Upper Arm] 175/81 H Pulse Oximetry 98 Oxygen Delivery Me thod Room Air Course Vital Signs Vital signs: Initial Vital Signs Temperature 97.3 F L 02/03/23 14:24 Temperature Source Temporal Artery Scan 02/03/23 14:24 Pulse Rate 69 02/03/23 14:24 Pulse Rhythm Irregular 02/03/23 14:24 Respiratory Rate 16 02/03/23 14:24 Blood Pressure 175/81 H 02/03/23 14:24 Blood Pressure Mean 112 H 02/03/23 14:24 Pulse Oximetry 98 02/03/23 14:24 Oxygen Delivery Method Room Air 02/03/23 14:24 Vital Signs Temperature 97.3 F L 02/03/23 14:24 Pulse Rate 69 02/03/23 14:24 Respiratory Rate 16 02/03/23 14:24 Blood Pressure 175/81 H 02/03/23 14:24 Pulse Oximetry 98 02/03/23 14:24 Oxygen Delivery Method Room Air 02/03/23 14:24 Temperature 97.3 F L 02/03/23 14:24 Pulse Rate 69 02/03/23 14:24 Respiratory Rate 16 02/03/23 14:24 Blood Pressure 175/81 H 02/03/23 14:24 Pulse Oximetry 98 02/03/23 14:24 Oxygen Delivery Method Room Air 02/03/23 14:24 MDM - Arrhythmia/Palpitations MDM Narrative Medical decision making narrative: This patient comes in reporting some palpitations. She was at her cardiac rehab appointment when the nurse said she should come here for further evaluation. Patient does not have any particular chest pain. She does feel some lightheadedness on occasion. She did have aortic regurgitation with a valve replacement about a month ago. She did not have her chest opened to perform this surgery. Rather it was done with through the vessel. EKG does show some occasional PVCs. Lab results returned with normal findings. Her troponin and her magnesium are normal range. These results are reassuring to the patient. She does report some episodes of flickering lights in her visual field. I did show images of scintillating scotoma and she identified some of these as very similar to what she is experiencing. She has had these occasionally over the course of several years but they have been more frequent recently. At the time of discharge the patient appears safe for outpatient management. The treatment plan is reviewed along with written and verbal return precautions. Reasons to return and the importance of close followup were also reviewed. Lab Data Labs: Lab Results 02/03/23 Range/Units 15:48 WBC 6.08 (4.50-11.00) K/uL RBC 4.20 (4.00-5.20) m/uL Hgb 11.9 L (12.0-16.0) gm/dL Hct 37.4 (33.0-51.0) % MCV 89 (80-100) fL MCH 28 (26-34) pg MCHC 32 (32-36) gm/dL RDW Coeff of Olivia 13.0 (11.5-15.5) % Plt Count 214 (140-440) K/uL Neut % (Auto) 62.4 (42.0-72.0) % Lymph % (Auto) 27.1 (20-44) % [place] % (Auto) 8.2 (0.0-11.0) % Eos % (Auto) 1.8 (0.0-7.0) % Baso % (Auto) 0.3 (0.0-3.0) % Neut # (Auto) 3.79 (1.7-7.0) K/uL Lymph # (Auto) 1.65 (0.90-2.90) K/uL [place] # (Auto) 0.50 (0.00-0.90) K/UL Eos # (Auto) 0.11 (0.00-0.50) K/uL Baso # (Auto) 0.02 (0.00-0.30) K/uL Abs Immat Gran (auto) 0.01 (0.00-0.30) K/uL Imm/Tot Granulo (auto) 0.2 % Sodium 140 (135-149) mmol/L Potassium 3.9 (3.6-5.1) mmol/L Chloride 103 (96-114) mmol/L Carbon Dioxide 30 (20-32) mmol/L BUN 20 (7-30) mg/dL Creatinine 0.9 (0.5-1.5) mg/dL Estimated Creat Clear 30.92 Estimated GFR 63 ml/min Glucose 92 (60-115) mg/dL Calcium 9.6 (8.4-10.6) mg/dL Magnesium 2.3 (1.5-2.6) mg/dL ECG Data Attestation: I personally reviewed and interpreted this ECG as follows: Interpretation: Sinus rhythm with PVCs and fusion complexes. Prolonged QT interval. There are no specific ST or T-wave abnormalities. Discharge Plan Discharge Clinical Impression: Scintillating scotoma, PVC (premature ventricular contraction) Patient Disposition: Home, Self-Care Condition: Stable Additional Instructions: Continue current plans. Follow up with MD or return if symptoms are persistent or worsening. Prescriptions: No Action amlodipine 5 mg tablet 5 mg PO QDAY losartan 25 mg tablet 25 mg PO QDAY Rx Instructions: Take 1 Tab QAM and 1/2 Tab QPM melatonin 3 mg capsule 3 - 6 mg PO HS PRN ascorbic acid (vitamin C) 500 mg tablet 500 mg PO BID aspirin 81 mg capsule 81 mg PO QDAY timolol maleate 0.5 % drops 1 drp ophthalmic (eye) DAILY Patient Comments: left eye simvastatin 10 mg tablet 10 mg PO HS Qty: 90 2RF Follow Up/Referrals: Neema Koenig MD [Primary Care Provider] - Stand Alone [facility] Info Instructions
[2023-02-03 16:00] VITALS: BP 177/87; PULSE 59; RESP 20; O2SAT 98
[2023-02-03 16:04] LABS: Basophils Absolute Auto 0.02 K/uL (0.00-0.30); Basophils Percent Auto 0.3 % (0.0-3.0); Eosinophils Absolute Auto 0.11 K/uL (0.00-0.50); Eosinophils Percent Auto 1.8 % (0.0-7.0); Hematocrit 37.4 % (33.0-51.0); Hemoglobin* 11.9 gm/dL (12.0-16.0); Immature Granulocytes Abs Auto 0.01 K/uL (0.00-0.30); Immature Granulocytes Pct Auto 0.2 %; Lymphocytes Absolute Auto 1.65 K/uL (0.90-2.90); Lymphocytes Percent Auto 27.1 % (20-44); Mean Corpuscular HGB Conc 32 gm/dL (32-36); Mean Corpuscular Hemoglobin 28 pg (26-34); Mean Corpuscular Volume 89 fL (80-100); Monocytes Percent Auto 8.2 % (0.0-11.0); Neutrophils Absolute Auto 3.79 K/uL (1.7-7.0); Neutrophils Percent Auto 62.4 % (42.0-72.0); Platelet Count* 214 K/uL (140-440); White Blood Count* 6.08 K/uL (4.50-11.00)
[2023-02-03 16:07] LABS: Slide Review Reflex No
[2023-02-03 16:21] LABS: Chloride* 103 mmol/L (96-114); Potassium* 3.9 mmol/L (3.6-5.1); Sodium* 140 mmol/L (135-149)
[2023-02-03 16:23] LABS: Creatinine* 0.9 mg/dL (0.5-1.5); Est. Creatinine Clearance* 30.92; Estimated Glomerular Filt Rate 63 ml/min
[2023-02-03 16:24] LABS: Blood Urea Nitrogen* 20 mg/dL (7-30); Calcium* 9.6 mg/dL (8.4-10.6); Carbon Dioxide* 30 mmol/L (20-32); Glucose* 92 mg/dL (60-115); Magnesium* 2.3 mg/dL (1.5-2.6)
[2023-02-03 16:30] VITALS: BP 164/73; PULSE 53; RESP 12; O2SAT 99
[2023-02-03 17:00] VITALS: BP 169/91; PULSE 62; RESP 12; O2SAT 97
== END 2023-02-03 17:15 | disposition home or self-care (01) ==
PROVIDERS: Emergency Provider Emergency Medicine Emergency Medical Services; PCP Internal Medicine
DX: I49.3 Ventricular premature depolarization (principal); H53.129 Transient visual loss, unspecified eye
CPT/HCPCS: 36415; 80048; 83735; 85025; 93005; 99284

== ENCOUNTER 2023-04-06 07:32 | Emergency (ER) | payer MEDICARE, SELFPAY ==
[2023-04-06 07:41] VITALS: BP 184/83; PULSE 78; RESP 18; TEMP 36.3; O2SAT 99
--- NOTE | 2023-04-06 08:05 | ED_ITS ---
History of Present Illness General Time Seen by Provider: 08:05 Date Seen: 04/06/23 Chief Complaint: Epistaxis/Nosebleed Stated Complaint: bloody nose, on blood thinner Time Seen by Provider: 04/06/23 08:04 Source: patient and RN notes reviewed Mode of arrival: ambulatory Limitations: no limitations History of Present Illness HPI Narrative: Shannen is a very pleasant 87-year-old woman with a history heart valve replacement currently on warfarin with recent INR of 3.2 who comes to the emergency room with concerns regarding a bloody nose. Patient cannot recall any recent trauma but notes that this morning she woke and had bleeding from her left nostril. She does described at least 3 episodes of clots coming from this area. She thinks initially there was some for blood going down the back of her throat but that has since stopped. She has a Kleenex into her left nostril. Patient denies any recent trauma cough cold. She does describe feeling fatigued and not well over the last 24 hours. She notes that she had significant COVID and initially I understand this to be recently but upon further discussion this was in May of 2020. She was hospitalized for 3 weeks. She also had COVID in September of this year. They have no known exposures to COVID recently but do recognize that it is in the community at this time. Patient denies any fevers chills. She has not had any painful urination. She is very concerned that she has not felt well since starting on Coumadin. She had been on Eliquis previously as she developed blood clots from her COVID. She notes that that did not cause her to feel bad. She is very concerned because she can see that her vein seem to be engorged on her arms and her legs. She also notes that since COVID sometimes her left and right eyes do not match up when she is looking and seeing. It does not sound like any of these issues with the exception of blood from her left nostril is acute. As a child patient had bloody noses but not as an adult. Yesterday an INR was 3.2. Related Data Home Medications Medication Instructions Recorded Confirmed ascorbic acid (vitamin C) 500 mg 500 mg PO BID 02/28/22 04/06/23 tablet melatonin 3 mg capsule 3 - 6 mg PO HS PRN 02/28/22 04/06/23 timolol maleate 0.5 % eye drops 1 drp ophthalmic (eye) DAILY 08/19/22 03/07/23 losartan 25 mg tablet 12.5 mg PO QHS 03/07/23 03/07/23 losartan 25 mg tablet 25 mg PO QAM 03/07/23 04/06/23 Previous Rx's Medication Instructions Recorded simvastatin 10 mg tablet 10 mg PO HS #90 tabs 11/08/22 warfarin 3 mg tablet 3 mg PO QDAY #180 tabs 03/15/23 Allergies Allergy/AdvReac Type Severity Reaction Status Date / Time lidocaine Allergy Severe shaking Verified 04/06/23 07:41 Sulfa (Sulfonamide Allergy Unknown Unknown Verified 04/06/23 07:41 Antibiotics) Review of Systems Status of ROS: Reports: 10 or more systems reviewed and unremarkable except as noted in History and below Const: Denies: fever or chills Eyes: Reports: change in vision (Since COV2019) ENMT: Denies: neck pain, throat swelling or hoarseness Cardio: Denies: chest pain, swelling of feet/ankles or shortness of breath with exertion Resp: Denies: shortness of breath or cough GI: Denies: abdominal pain or vomiting : Denies: painful urination Musculo: Denies: neck pain Allergy/Immuno: Denies: throat swelling PFSH PFSH Medical History History of aortic regurgitation ?Z86.79 - Personal history of other diseases of the circulatory system (ICD- 10) History of diverticulitis ?Z87.19 - Personal history of other diseases of the digestive system (ICD-10) History of pulmonary embolism (2019) ?Z86.711 - Personal history of pulmonary embolism (ICD-10) History of giant cell arteritis (2017) ?Z86.79 - Personal history of other diseases of the circulatory system (ICD- 10) Surgical History History of tympanostomy (1971) ?Z98.890 - Other specified postprocedural states (ICD-10) History of tonsillectomy (1948) ?Z90.89 - Acquired absence of other organs (ICD-10) History of section (1960) ?Z98.891 - History of uterine scar from previous surgery (ICD-10) History of bilateral cataract extraction (2020) ?Z98.41 - Cataract extraction status, right eye (ICD-10) ?Z98.42 - Cataract extraction status, left eye (ICD-10) History of appendectomy (1950) ?Z90.49 - Acquired absence of other specified parts of digestive tract (ICD- 10) Family History Daughter Breast cancer Mother High blood pressure Father High blood pressure Social History Narrative: She lives independently at [address] [place] [address]. Her daughter Emilia is healthcare power of private duty aide. Her code status is full. She does not smoke. She does not drink alcohol. Highest level of school completed/degree received: Bachelor's degree Smoking Status: Never smoker Do you use any of these nicotine containing products: None Second hand tobacco smoke exposure: No How often do you have a drink containing alcohol: never AUDIT-C Alcohol total score: 0 Non-prescribed substance use: denies use Caffeine: No Little interest or pleasure in doing things: not at all Feeling down, depressed, or hopeless: not at all service: No Exam Narrative: Exam Narrative: Patient is alert and oriented. She is nontoxic in appearance. Her EOM is full. Face is symmetrical. I gently removed the Kleenex from her nose and note that bilaterally she has increased mucosal bogginess but no evidence of active bleeding. Oral cavity with moist mucous membranes. Heart with regular rate and rhythm and lungs are clear. Moving all extremities. I do see her veins on her arms and legs but she is very thin without excess of subcutaneous fat and therefore feel that they are normal in appearance. Const: Vital Signs, click to edit/add: Vital Signs - 24 hr 04/06/23 07:41 Temperature 97.3 F L Pulse Rate [Pulse Oximeter] 78 Respiratory Rate 18 Blood Pressure [Ri ght Upper Arm] 184/83 H Pulse Oximetry 99 Oxygen Delivery Me thod Room Air Documenting provider has reviewed patient's vital signs: yes Course Course ED Course: At this time we recognize that Shannen has an appointment with Dr. Carmela Koenig this afternoon. I have contacted her to ask if there are any other labs she would like done. We will order a CBC, comprehensive, urinalysis, COVID test at this time. Will continue to monitor for recurrence of nasal bleeding. Vital Signs Vital signs: Initial Vital Signs Temperature 97.3 F L 04/06/23 07:41 Temperature Source Temporal Artery Scan 04/06/23 07:41 Pulse Rate 78 04/06/23 07:41 Respiratory Rate 18 04/06/23 07:41 Blood Pressure 184/83 H 04/06/23 07:41 Blood Pressure Mean 116 H 04/06/23 07:41 Blood Pressure Position Sitting 04/06/23 07:41 Pulse Oximetry 99 04/06/23 07:41 Oxygen Delivery Method Room Air 04/06/23 07:41 Vital Signs Temperature 97.3 F L 04/06/23 07:41 Pulse Rate 78 04/06/23 07:41 Respiratory Rate 18 04/06/23 07:41 Blood Pressure 184/83 H 04/06/23 07:41 Pulse Oximetry 99 04/06/23 07:41 Oxygen Delivery Method Room Air 04/06/23 07:41 Temperature 97.3 F L 04/06/23 07:41 Pulse Rate 78 04/06/23 07:41 Respiratory Rate 18 04/06/23 07:41 Blood Pressure 184/83 H 04/06/23 07:41 Pulse Oximetry 99 04/06/23 07:41 Oxygen Delivery Method Room Air 04/06/23 07:41 MDM - Epistaxis MDM Narrative Medical decision making narrative: 1. Epistaxis-at this time patient not in need of any medications nor placing of nasal packing as she has not read blood. Did ask her to try to keep her head elevated at least 30? while sleeping and to avoid bending over as this will increase pressures. Per family they are requesting that Shannen's INR be between 3-4 as they are describing some is a potential clot or abnormality on the valve leaflet of on valve. I do not feel we need to change her dosing at this time given the resolution of her symptoms. 2. Nonspecific complaints-patient has complaints of not feeling well but laboratory values are all reassuring at this time. White count slightly depressed at 4.46 COVID is negative hemoglobin normal at 13.1 and platelets are 183,000. 3. Disposition-home with daughter at this time. They did depart prior to res ults being back and I did state that I would call them if I had any concerns. Otherwise they will follow up with her primary MD this afternoon at 1400 hours. Return to the emergency room as needed. Medical Records Attestation: I reviewed the patient's medical records. Lab Data Attestation: I reviewed the patient's lab results. Labs: Lab Results 04/06/23 04/06/23 Range/Units 08:30 08:45 WBC 4.46 L (4.50-11.00) K/uL RBC 4.63 (4.00-5.20) m/uL Hgb 13.1 (12.0-16.0) gm/dL Hct 40.8 (33.0-51.0) % MCV 88 (80-100) fL MCH 28 (26-34) pg MCHC 32 (32-36) gm/dL RDW Coeff of Olivia 13.0 (11.5-15.5) % Plt Count 183 (140-440) K/uL Neut % (Auto) 57.3 (42.0-72.0) % Lymph % (Auto) 30.0 (20-44) % [place] % (Auto) 9.0 (0.0-11.0) % Eos % (Auto) 3.1 (0.0-7.0) % Baso % (Auto) 0.4 (0.0-3.0) % Neut # (Auto) 2.60 (1.7-7.0) K/uL Lymph # (Auto) 1.30 (0.90-2.90) K/uL [place] # (Auto) 0.40 (0.00-0.90) K/UL Eos # (Auto) 0.10 (0.00-0.50) K/uL Baso # (Auto) 0.00 (0.00-0.30) K/uL Abs Immat Gran (auto) 0.00 (0.00-0.30) K/uL Imm/Tot Granulo (auto) 0.2 % Sodium 143 (135-149) mmol/L Potassium 4.5 (3.6-5.1) mmol/L Chloride 107 (96-114) mmol/L Carbon Dioxide 31 (20-32) mmol/L Anion Gap 5 L (7-15) mEq/L BUN 20 (7-30) mg/dL Creatinine 0.9 (0.5-1.5) mg/dL Estimated GFR 63 ml/min Glucose 93 (60-115) mg/dL Calcium 9.6 (8.4-10.6) mg/dL Total Bilirubin 0.8 (0.1-1.5) mg/dL AST 31 (12-35) U/L ALT 20 (4-35) U/L Alkaline Phosphatase 64 (40-150) U/L Total Protein 7.1 (6.0-8.3) g/dL Albumin 4.3 (3.3-5.0) g/dL Urine Color Yellow (Yellow) Urine Appearance Clear (Clear) Urine pH 6.5 (5.0-8.5) Ur Specific [place] 1.020 (1.000-1.030) Urine Protein Negative (Negative) Urine Glucose (UA) Negative (Negative) Urine Ketones Negative (Negative) Urine Blood Negative (Negative) Urine Nitrite Negative (Negative) Urine Bilirubin Negative (Negative) Urine Urobilinogen 0.2 (0.2-1.0) Ur Leukocyte Esterase Trace A (Negative) Urine RBC 0-2 (0-2) Urine WBC 2-5 (0-5) Ur Squamous Epith Cells Few (None-Few) Urine Bacteria Few A (None) SARS-CoV-2 (PCR) Negative SARS-CoV-2 (Negative) Influenza Type A (PCR) Negative PCR FLU A (Negative) Influenza Type B (PCR) Negative PCR FLU B (Negative) RSV (PCR) Negative PCR RSV (Negative) Discharge Plan Discharge Clinical Impression: Epistaxis Patient Disposition: Home, Self-Care Condition: Improved Additional Instructions: See Dr. Koenig this afternoon as scheduled do not blow nose and try to keep head elevated today. Return as needed. .. Prescriptions: No Action losartan 25 mg tablet 25 mg PO QAM losartan 25 mg tablet 12.5 mg PO QHS melatonin 3 mg capsule 3 - 6 mg PO HS PRN ascorbic acid (vitamin C) 500 mg tablet 500 mg PO BID timolol maleate 0.5 % drops 1 drp ophthalmic (eye) DAILY Patient Comments: left eye simvastatin 10 mg tablet 10 mg PO HS Qty: 90 2RF warfarin 3 mg tablet 3 mg PO QDAY Qty: 180 0RF Protocol: Dose Management Condition: Monday Dose/Route: 6 mg Instruction: 2 x 3 mg tablets Condition: Monday Dose/Route: 6 mg Instruction: 2 x 3 mg tablets Condition: Monday Dose/Route: 6 mg Instruction: 2 x 3 mg tablets Condition: Monday Dose/Route: 6 mg Instruction: 2 x 3 mg tablets Condition: Dose/Route: 6 mg Instruction: 2 x 3 mg tablets Condition: Monday Dose/Route: 6 mg Instruction: 2 x 3 mg tablets Condition: Monday Dose/Route: 6 mg Instruction: 2 x 3 mg tablets Protocol Text: Adjustment Start Date: Monday04/05/23 INR Value: 3.2 INR Date: 04/05/23 Recheck Date: 04/19/23 Follow Up/Referrals: Neema Koenig MD [Primary Care Provider] - Stand Alone Forms: [employer] Info Instructions
[2023-04-06 09:00] LABS: Appearance Urine Clear (Clear); Bilirubin Urine Negative (Negative); Blood Urine Negative (Negative); Color Urine Yellow (Yellow); Glucose Urine Negative (Negative); Ketones Urine Negative (Negative); Leukocyte Esterase Urine Trace (Negative); Nitrite Urine Negative (Negative); Protein Urine Negative (Negative); Urobilinogen Urine 0.2 (0.2-1.0); pH Urine 6.5 (5.0-8.5)
[2023-04-06 09:10] LABS: Basophils Percent Auto 0.4 % (0.0-3.0); Eosinophils Percent Auto 3.1 % (0.0-7.0); Hematocrit 40.8 % (33.0-51.0); Hemoglobin* 13.1 gm/dL (12.0-16.0); Immature Granulocytes Pct Auto 0.2 %; Mean Corpuscular HGB Conc 32 gm/dL (32-36); Mean Corpuscular Hemoglobin 28 pg (26-34); Mean Corpuscular Volume 88 fL (80-100); Neutrophils Percent Auto 57.3 % (42.0-72.0); Platelet Count* 183 K/uL (140-440); Red Blood Count 4.63 m/uL (4.00-5.20); White Blood Count* 4.46 K/uL (4.50-11.00)
[2023-04-06 09:18] LABS: Bacteria Urine Few; RBC Urine 0-2 (0-2); Squamous Epithelial Cell Urine Few (None-Few)
[2023-04-06 09:28] LABS: Slide Review Reflex No
[2023-04-06 09:30] LABS: Albumin* 4.3 g/dL (3.3-5.0); Chloride* 107 mmol/L (96-114); Potassium* 4.5 mmol/L (3.6-5.1); Sodium* 143 mmol/L (135-149)
[2023-04-06 09:32] LABS: Creatinine* 0.9 mg/dL (0.5-1.5); Estimated Glomerular Filt Rate 63 ml/min
[2023-04-06 09:33] LABS: Alanine Aminotransferase* 20 U/L (4-35); Alkaline Phosphatase* 64 U/L (40-150); Anion Gap 5 mEq/L (7-15); Aspartate Amino Transferase* 31 U/L (12-35); Bilirubin Total* 0.8 mg/dL (0.1-1.5); Blood Urea Nitrogen* 20 mg/dL (7-30); Carbon Dioxide* 31 mmol/L (20-32); Glucose* 93 mg/dL (60-115); Total Protein* 7.1 g/dL (6.0-8.3)
[2023-04-06 09:34] LABS: Calcium* 9.6 mg/dL (8.4-10.6)
[2023-04-06 09:36] LABS: PCR FLU A Negative PCR FLU A (Negative); PCR FLU B Negative PCR FLU B (Negative); PCR RSV Negative PCR RSV (Negative)
[2023-04-06 10:25] LABS: SARS PCR* Negative SARS-CoV-2 (Negative)
== END 2023-04-06 09:25 | disposition home or self-care (01) ==
PROVIDERS: Emergency Provider Family Medicine; PCP Internal Medicine
DX: R04.0 Epistaxis (principal); R53.83 Other fatigue
CPT/HCPCS: 36415; 80053; 81001; 85025; 87086; 87631; 99283

== ENCOUNTER 2023-05-18 10:21 | Outpatient (CLI) | payer MEDICARE, SELFPAY | END 2023-05-18 10:22 | disposition home or self-care (01) | LOC: NFLDREF 05-22 06:41 | PROVIDERS: PCP Internal Medicine; Referring Provider Internal Medicine; Visit Provider Internal Medicine | DX: Z51.81 Encounter for therapeutic drug level monitoring (principal); Z79.01 Long term (current) use of anticoagulants | CPT/HCPCS: 85610 ==

== ENCOUNTER 2023-11-02 10:55 | Outpatient (CLI) | payer MEDICARE, SELFPAY ==
--- OUTSIDE RECORDS SUMMARY | 2023-11-06 09:04 | XMS_ITS ---
Author Name Unknown Organization [facility] Address [address] [place] [address] Care Team Providers Care Sandblast Carver Name Role Phone Unavailable Unavailable Unavailable Surgery Details Not on file Complications Check Surgery Details section. Procedure Estimated Blood Loss Check Surgery Details section. Procedure Findings Check Surgery Details section. Procedure Specimens Taken Check Surgery Details section.
--- OUTSIDE RECORDS SUMMARY | 2023-11-06 09:04 | XMS_ITS | Clinical Summary ---
Author Name Unknown Organization [facility] Address [address] [place] [address] Care Team Providers Care Sccm Administrator Name Role Phone Megan Dong MD Unavailable Estephania Lozano AuD Unavailable Neema Koenig MD Primary Care Provider Val Broderick AuD Unavailable [phone] Lakia Romero AuD Unavailable [phone] Megan Dong MD Unavailable Allergies Active Allergy Reactions Criticality Noted Date Comments Lidocaine Other (See Comments) High 2016 Other reaction(s): Other (see comments) Shakey Cucokey Sulfa Antibiotics Dizziness,Other (See Comments),Rash Low 07/23/2005 Sleepy Sleepy Medications Medication Sig Dispensed Refills Start Date End Date Status amLODIPine (NORVASC) 2.5 MG tablet Take 2.5 mg by mouth At Bedtime 06/15/2022 Active vitamin C (ASCORBIC ACID) 500 MG tablet Take 500 mg by mouth daily Active Calcium Carb-Cholecalciferol 500-10 MG-MCG TABS Take 1 tablet by mouth daily Active losartan (COZAAR) 25 MG tablet 09/27/2022 Active simvastatin (ZOCOR) 10 MG tablet Take 10 mg by mouth At Bedtime 11/08/2022 Active timolol maleate (TIMOPTIC) 0.5 % ophthalmic solution Apply 1 drop to eye 10/21/2021 Active Social History Tobacco Use Types Packs/Day Years Used Date Smoking Tobacco: Never Smokeless Tobacco: Never Tobacco Cessation:Counseling Given: No Alcohol Use Standard Drinks/Week Comments Not Currently 0 (1 standard drink = 0.6 oz pur e alcohol) PHQ-2 Answer Date Recorded PHQ-2 Score 1 11/29/2022 Adolescent Education Answer Date Record ed Getting School Help Needed Not on file 04/08 Sex and Gender Information Value Date Recorded Sex Assigned at Not on file Gender Identity Not on file Sexual Orientation Not on file Last Filed Vital Signs Vital Sign Reading Time Taken Comments Blood Pressure - - Pulse 66 11/29/2022 8:58 AM CDT Temperature 36.1 ??C (97 ??F) 11/29/2022 8:58 AM CDT Respiratory Rate - - Oxygen Saturation 97% 11/29/2022 8:58 AM CDT Inhaled Oxygen Concentration - - Weight 46.7 kg (103 lb) 11/29/2022 8:58 AM CDT Height - - Body Mass Index - - Plan of Treatment Health Maintenance Due Date Last Done Comments ADVANCE CARE PLANNING 1937 ANNUAL REVIEW OF HM ORDERS 1937 LIPID 1937 ZOSTER IMMUNIZATION (1 of 2) 12/24/1987 RSV VACCINE ( & 60+) (1 - 1-dose 60+ series) 1997 FALL RISK ASSESSMENT 2002 MEDICARE ANNUAL WELLNESS VISIT 2002 Pneumococcal Vaccine: 65+ Years (1 of 1 - PCV) 2002 COVID-19 Vaccine ( season) 2023 03/08/2022, 04/20/2021, 09/12/2020, Additional history exists INFLUENZA VACCINE (#1) 2023 , 05/02/2021, 06/29/2020, Additional history exists PHQ-2 (once per calendar year) 2023 11/29/2022 DTAP/TDAP/TD IMMUNIZATION (2 - Td or Tdap) 04/23/2031 04/23/2021 HPV IMMUNIZATION Aged Out No longer e ligible based on patient's age to complete this topic IPV IMMUNIZATION Aged Out No longer e ligible based on patient's age to complete this topic MENINGITIS IMMUNIZATION Aged Out No l onger eligible based on patient's age to complete this topic RSV MONOCLONAL ANTIBODY Aged Out No l onger eligible based on patient's age to complete this topic Care Teams Sccm Administrator Relationship Specialty Start Date End Date Neema Koenig MD [facility] [address] [place] [address] PCP - General Internal Medicine 07/19/22 Megan Dong MD [address] [place] [address] Otolaryngology 07/06/22 Estephania Lozano AuD [address] [place] [address] Boiler/Chiller Operator Audiology 07/06/22 Val Broderick AuD [address] [place] [address] [id number] Boiler/Chiller Operator Audiology 07/19/22 Lakia Romero AuD [address] [place] [address] Boiler/Chiller Operator Audiology 09/26/22 Megan Dong MD [address] [place] [address] [id number] Assigned Surgical Provider 12/10/22
--- OUTSIDE RECORDS SUMMARY | 2023-11-06 09:04 | XMS_ITS | Encounter Summary ---
Author Name Unknown Organization [facility] Address [address] [place] [address] Care Team Providers Care Medicaid Eligibility Specialist Name Role Phone Unavailable Primary Care Provider Unavailabl e Reason for Referral * Outpatient (Routine) - Closed Specialty Diagnoses / Procedures Referred By Karla larson Referred To Contact Neurology Diagnoses Pain Head Neema Koenig M.D. [address] [place] [address] [facility] Referral ID Status Reason Start Date Expiration Date Visits Re quested Visits Authorized [id number] Closed 11/23/2017 05/22/2018 1 1 Encounter Details Date Type Department Care Team (Late st Contact Info) Description 11/23/2017 [facility] [address] [place] [address] Neema Koenig M.D. [address] [place] [address] Pain Head (Primary Dx) Social History Tobacco Use Types Packs/Day Years Used Date Smoking Tobacco: Never Sex and Gender Information Value Date Recorded Sex Assigned at Not recorded on cert ificate 05/09/2022 8:33 AM CDT Gender Identity Female 01/02/2018 7:39 AM CDT Sexual Orientation Not on file documented as of this encounter Plan of Treatment Scheduled Referrals Name Type Priority Associated Diagnoses Orde r Schedule Neurology Referral Outpatient Referral Routine Pain Head Expected: 11/23/2017 (Approximate), Expires: 11/23/2020 documented as of this encounter Visit Diagnoses Diagnosis Pain Head- Primary documented in this encounter
--- OUTSIDE RECORDS SUMMARY | 2023-11-06 09:04 | XMS_ITS | Encounter Summary ---
Author Name Unknown Organization [facility] Address [address] [place] [address] Care Team Providers Care Communication Lecturer Name Role Phone Unavailable Primary Care Provider Unavailabl e Encounter Details Date Type Department Care Team (Latest Contact Info) Description 08/15/2023 1:00 PM LEAD BUSINESS ANALYST Diagnostic Department of Otorhinolaryngology in [place], [place] [address] [place] [address] Astrid Ellis, Ph.D. [address] [place] [address] Loss Hearing Sensorineural Bilateral (Primary Dx) Social History Tobacco Use Types Packs/Day Years Used Date Smoking Tobacco: Never Smokeless Tobacco: Never Alcohol Use Standard Drinks/Week Comments No 0 (1 standard drink = 0.6 oz pur e alcohol) Humiliation, Afraid, Rape, and Kick questionnair e Answer Date Recorded Within the last year, have y ou been afraid of your partner or ex-partner? No 12/05/2021 Within the last year, have y ou been humiliated or emotionally abused in other ways by your partner or ex-partner? No Within the last year, have y ou been kicked, hit, slapped, or otherwise physically hurt by your partner or ex-partner? No 12/05/2021 Within the last year, have y ou been raped or forced to have any kind of sexual activity by your partner or ex-partner? No 12/05/2021 Social Connection and Isolat ion Panel [NHANES] Answer Date Recorded In a typical week, how many times do you talk on the phone with family, friends, or neighbors? More than three times a week 12/05/2021 How often do you get togethe r with friends or relatives? More than three times a week 12/05/2021 How often do you attend chur ch or yarsani services? More than 4 times per year 12/05/2021 Do you belong to any clubs o r organizations such as scientology groups, unions, fraternal or athletic groups, or school groups? Yes 12/05/2021 How often do you attend meet ings of the clubs or organizations you belong to? 1 to 4 times per year 12/05/2021 Are you , , di vorced, , never , or living with a partner? 12/05/2021 AUDIT-C Answer Date Recorded Frequency of Alcohol Consumption Never 02/08/2019 Average Number of Drinks Patient declined 2018 Frequency of Binge Drinking Never 01/15 Overall Financial Resource Strain (CARDIA) Answe r Date Recorded How hard is it for you to pa y for the very basics like food, housing, medical care, and heating? Not hard at all 12/05/2021 PHQ-2 Answer Date Recorded PHQ-2 Score 1 03/03/2022 [facility] - Occupational Stress Questionnaire Answer Date Recorded Do you feel stress - tense, restless, nervous, or anxious, or unable to sleep at night because your mind is troubled all the time - these days? To some extent 12/05/2021 Exercise Vital Sign Answer Date Recorde d On average, how many days pe r week do you engage in moderate to strenuous exercise (like a brisk walk)? 3 days 12/05/2021 On average, how many minutes do you engage in exercise at this level? 50 min 12/05/2021 Hunger Vital Sign Answer Date Recorded Within the past 12 months, y ou worried that your food would run out before you got the money to buy more. Never true 12/06/19 Within the past 12 months, t he food you bought just didn't last and you didn't have money to get more. Never true 12/05/2021 PRAPARE - Transportation Answer Date Re corded In the past 12 months, has l ack of transportation kept you from medical appointments or from getting medications? No 11/15 In the past 12 months, has l ack of transportation kept you from meetings, work, or from getting things needed for daily living? No 12/05/2021 Housing Stability Vital Sign Answer Elmo e Recorded In the last 12 months, was t here a time when you were not able to pay the mortgage or rent on time? No 12/05/2021 In the last 12 months, how many places have you lived? 2 12/05/2021 In the last 12 months, was t here a time when you did not have a steady place to sleep or slept in a intermediate (including now)? No 12/05/2021 Depression Answer Date Recor ded PHQ-9 Total Score (max 27) 9 03/03 Nutrition Answer Date Recorded Nutrition: EVOO Fat Source Yes 12/05 On average, how many serving s of fruits and vegetables do you eat per day (serving size is equal to 1 cup or approximately the size of a tennis ball)? 2-3 12/05/2021 Dental Answer Date Recorded Dental: Regular Dentist Yes 12/06/19 Employment Answer Date Recorded Employment status Retired 12/05/2021 Education Answer Date Recorded What is the highest level of school you have completed or the highest degree you have received? Associate degree: occupational, technical, or vocational program 01/21/2019 Sex and Gender Information Value Date Recorded Sex Assigned at Not recorded on cert ificate 05/09/2022 8:33 AM CDT Gender Identity Female 01/02/2018 7:39 AM CDT Sexual Orientation Not on file documented as of this encounter Progress Notes * Jolly Ray, AUD - 08/15/2023 1:00 PM CST SUBJECTIVE REFERRAL: Self CHIEF COMPLAINT/REASON FOR VISIT Hearing aid follow-up HISTORY Shannen Amin is a 87 y.o. 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 She was fit with binaural Resound One 961 ztwciaiu-ap-bhx-ear hearing aids by a family friend. She has struggled with speech clarity. She was fit with silicone micromolds here on 10/31/2022. Today, Ms. Amin reports continued irritation and soreness from her left ear mold. Her right ear mold as torn and she would like to replace both molds. She is currently wearing a tulip dome on the left ear due to soreness. Overall, she reports okay sound quality, but would like the volume increased for both devices. Ms. Amin currently wears the following: Hearing Aid Information Left Right Truss Designer ReSound ReSound Model [id number] Style RITE (xdslrezz-bu-pdq-ear) RITE (rtmhlgow-rp-oqf-ear) Serial Number [id number] Battery Size [place] Ion Rechargeable [place] Ion Rechargeable Coupling 0 MP Marbleizer Silicone canal lock micromold 0MP quality assurance coordinator Silicone canal lock micromold Phone iPhone and Smart 3D naga Warranty Date 05/29/2024 05/29/2024 Accessory Information Serial Number End of Warranty Date Multi reuben: fit 03/03/2022 OBJECTIVE Otoscopic evaluation was performed and indicated non-occluding cerumen bilaterally. ASSESSMENT/PLAN Following hearing aid cleaning, listening check indicates broken receivers for both devices. The right speaker has been broken off and the left quality assurance coordinator wire has been twisted. The following components were replaced during cleaning: Both receivers were replaced under warranty. Once the receivers were replaced, Ms. Amin reported the sound quality was much better and louder. New ear mold impressions were taken without incident. Ms. Amin's left ear mold was sent with the impressions to ReSound to show which part of the mold needs to be modified on the new left mold. Ms. Amin will continue to wear her current right mold as the tear is not impacting sound quality at this time. She is currently wearing a medium double dome on the left device until the new molds arrive. We will call Ms. Amin once the new ear molds arrive at the clinic and will schedule an ear mold fitting appointment. Continue full-time use of both devices. Call the clinic with any questions or concerns which may arise. #1 Loss Hearing Sensorineural Bilateral Appointment assisted by Jolly Ray, audiology spinning frame fixer BUSINESS ANALYST documented in this encounter Plan of Treatment Not on file documented as of this encounter Visit Diagnoses Diagnosis Loss Hearing Sensorineural Bilateral- Primary documented in this encounter Additional Health Concerns Assessment Noted Time PHQ-9 Depression Total Score: 9 03/03/20 22 9:31 AM CDT documented as of this encounter
--- OUTSIDE RECORDS SUMMARY | 2023-11-06 09:04 | XMS_ITS | Referral Summary ---
Author Name Unknown Organization [facility] Address [address] [place] [address] Care Team Providers Care Magnaflux Operator Name Role Phone Unavailable Primary Care Provider Unavailabl e Source Comments Patient records contain information from all sites at [facility]. For routine questions regarding patient records, call [phone] during business hours, M-F 8:00 AM - 5:00 PM Central Time. Record requests for emergency care only can be directed to [phone] at any time.[facility] Encounters Date Type Department Care Team Description 08/30/2023 11:00 AM SUPERVISOR CORRESPONDENCE SECTION Diagnostic Department of Otorhinolaryngology in [place], [place] [address] [place] [address] Apolonia Glover, [place]iles. Loss Hearing Sensorineural Bilateral (Primary Dx) 08/15/2023 1:00 PM SUPERVISOR CORRESPONDENCE SECTION Diagnostic Department of Otorhinolaryngology in [place], [place] [address] [place] [address] Astrid Ellis, Ph.D. Loss Hearing Sensorineural Bilateral (Primary Dx) from Last 3 Months Allergies Active Allergy Reactions Criticality Noted Date Comments Lidocaine Other (see comments) High 2016 Shakey Sulfa (Sulfonamide Antibiotics) Other (see comments) Low 2016 Sleepy Medications Medication Sig Dispensed Refills Start Date End Date Status amLODIPine (NORVASC) 2.5 mg tablet Take 2.5 mg by mouth at bedtime. 3 03/25/2019 Active ascorbic acid, vitamin C, (VITAMIN C) 500 mg tablet Take 500 mg by mouth daily. Active calcium carbonate-vitamin D3 500 mg-10 mcg (400 unit) tablet Take 1 tablet by mouth daily. Active timolol (TIMOPTIC) 0.5 % ophthalmic solution Administer 1 drop into the left eye 2 (two) times a day. 10/21/2021 Active simvastatin (ZOCOR) 10 mg tablet Take 10 mg by mouth at bedtime. 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 More than 4 times per year 12/05/2021 Do you belong to any clubs o r organizations such as sikh groups, unions, fraternal or athletic groups, or [...] Answer Date Recorded PHQ-2 Score 1 03/03/2022 [facility] Occupational Stress Questionnaire Answer Date Recorded [...] money to buy more. Never true 12/06/19 22 Within the past 12 months, t he [...] place to sleep or slept in a group home (including now)? No 12/05/2021 Depression Answer Date [...] AM CDT Sexual Orientation Not on file Last Filed Vital Signs Vital Sign Reading Time Taken Comments Blood Pressure 162/65 12/06/2021 10:04 AM CDT av erage Pulse 75 12/06/2021 10:04 AM CDT Temperature 36.6 ??C (97.9 ??F) 08/06/2019 2:56 PM CS T Respiratory Rate 16 08/06/2019 2:56 PM SUPERVISOR CORRESPONDENCE SECTION Oxygen Saturation 99% 08/06/2019 3:22 PM SUPERVISOR CORRESPONDENCE SECTION Inhaled Oxygen Concentration - - Weight 51.2 kg (112 lb 14 oz) 12/06/2021 10:04 A M CDT Height 157.1 cm (5' 1.85) 12/06/2021 10:04 AM C DT Body Mass Index 20.75 12/06/2021 10:04 AM CDT Plan of Treatment Not on file Medical Devices Implanted Type Area Ticketer Device Identifier Shelf Expiration Date Model / Serial / Lot Ocular Lens Ocular Lens Eye
--- OUTSIDE RECORDS SUMMARY | 2023-11-06 09:04 | XMS_ITS | Referral Summary ---
Author Name Unknown Organization [facility] Address [address] [place] [address] Care Team Providers Care Schedule Planning Manager Name Role Phone Megan Dong MD Unavailable [phone] Estephania Lozano AuD Unavailable Neema Koenig MD Primary Care Provider Val Broderick AuD Unavailable [phone] Lakia Romero AuD Unavailable Megan Dong MD Unavailable Allergies Active Allergy [...] Mass Index - - Plan of Treatment Not on file Care Teams Schedule Planning Manager Relationship Specialty Start Date End Date Neema Koenig MD [facility] [address] [place] [address] PCP - General Internal Medicine 07/19/22 Megan Dong MD [address] [place] [address] [phone] Otolaryngology 07/06/22 Estephania Lozano AuD [address] [place] [phone] [facility] 07/06/22 Val Broderick AuD [address] [place] [address] [facility] 07/19/22 Lakia Romero AuD [address] [place] [address] [facility] 09/26/22 Megan Dong MD [address] [place] [address] [id number] Assigned Surgical Provider 12/10/22
--- OUTSIDE RECORDS SUMMARY | 2023-11-06 09:04 | XMS_ITS | Encounter Summary ---
Author Name Unknown Organization [facility] Address [address] [place] [address] Care Team Providers Care Revenue Cycle Manager Name Role Phone Unavailable Primary Care Provider Unavailabl e Encounter Details Date Type Department Care Team (Latest Contact Info) Description 08/30/2023 11:00 AM NAIL WELTER Diagnostic Department of Otorhinolaryngology in [place], [place] [address] [place] [address] Apolonia Glover Au.D. [address] [place] [address] Loss Hearing Sensorineural Bilateral (Primary Dx) Social [...] often do you attend chur ch or congregation services? More than 4 times per year 12/05/2021 Do you belong to any clubs o r organizations such as nondenominational groups, unions, fraternal or athletic groups, or [...] Answer Date Recorded PHQ-2 Score 1 03/03/2022 [facility] - Occupational Stress [...] place to sleep or slept in a fpc (including now)? No 12/05/2021 Depression Answer Date [...] as of this encounter Progress Notes * Apolonia Glover Au.D. - 08/30/2023 11:00 AM CST SUBJECTIVE REFERRAL: self CHIEF COMPLAINT/REASON FOR VISIT Hearing aid follow-up HISTORY Shannen Amin is a 87 y.o. 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 She was fit with binaural Resound One 961 aarnpyud-iy-ftv-ear hearing aids by a family friend. She has struggled with speech clarity. She was fit with silicone micromolds here on 10/31/2022. Ms. Amin currently wears the following: Hearing Aid Information Left Right Test Engine Mechanic ReSound ReSound Model [id number] Style RITE (atdcbhga-qv-hpu-ear) RITE (ugygvpoj-wf-cxv-ear) Serial Number [id number] Battery Size [place] Ion Rechargeable [place] Ion Rechargeable Coupling 0 MP Hairspring Vibrator Silicone canal lock micromold 0MP tire bagger Silicone canal lock micromold Phone iPhone and Smart 3D naga Warranty Date 05/29/2024 05/29/2024 Accessory Information Serial Number End of Warranty Date Multi reuben: fit 03/03/2022 Ms. Amin returns today to be fitted with her new molds. OBJECTIVE Otoscopic evaluation was performed and indicated clear canals bilaterally ASSESSMENT/PLAN Ms. Amin reports both molds feel comfortable so far. Aided real-ear probe microphone measures showed good target match for the right and slight overamplification for the left when compared to NAL-NL2 targets for conversational speech inputs (65 dB SPL). Fine tuning changes were made based on Ms. Singh request. If further volume changes are needed, thevents may need to be blocked on her molds. The right side may need a more powerful tire bagger. Follow-up in 6-12 months for routine hearing aid check is recommended. #1 Loss Hearing Sensorineural Bilateral WELTER documented in this encounter Plan of Treatment Not on file documented as of this encounter Visit Diagnoses Diagnosis Loss Hearing Sensorineural Bilateral- Primary documented in this encounter Additional Health Concerns Assessment Noted Time PHQ-9 Depression Total Score: 9 03/03/20 22 9:31 AM CDT documented as of this encounter
--- OUTSIDE RECORDS SUMMARY | 2023-11-06 09:04 | XMS_ITS | Clinical Summary ---
Author Name Unknown Organization [facility] Address [address] [place] [address] Care Team Providers Care Door Slinger Name Role Phone Unavailable Primary Care Provider Unavailabl e Source Comments Patient records contain information from all sites at [facility]. For routine questions regarding patient records, call [phone] during business hours, M-F 8:00 AM - 5:00 PM Central Time. Record requests for emergency care only can be directed to [phone] at any time.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 Loss Hearing Sensorineural Bilateral (Primary Dx) 08/15/2023 1:00 PM FASHION JOURNALIST Diagnostic Department of Otorhinolaryngology in [place], [place] [address] [place] [address] Astrid Ellis, Ph.D. Loss Hearing Sensorineural Bilateral (Primary Dx) from Last 3 Months Immunizations Name Administration Dates Next Due Influenza (IM) Preservative Free 05/03/2011 Influenza high dose QV(65 ye ars or older) (PF) 06/29/2020 Influenza, Unspecified 05/02/2021 RZV (SHINGRIX) 12/06/2021(Deferred: Patient Ref used) Tdap 04/23/2021 Family History Medical History Relation Name Comments Hypertension Father father Kidney disease Father father canver Relation Name Status Comments Father father Social History Tobacco Use Types Packs/Day Years [...] often do you attend chur ch or yarsanism services? More than 4 times per year 12/05/2021 Do you belong to any clubs o r organizations such as rastafari groups, unions, fraternal or athletic groups, or [...] Answer Date Recorded PHQ-2 Score 1 03/03/2022 [facility] - Occupational Stress Questionnaire Answer Date [...] place to sleep or slept in a detention (including now)? No 12/05/2021 Depression Answer Date [...] T Respiratory Rate 16 08/06/2019 2:56 PM FASHION JOURNALIST Oxygen Saturation 99% 08/06/2019 3:22 PM FASHION JOURNALIST Inhaled Oxygen Concentration - - Weight 51.2 kg (112 lb 14 oz) 12/06/2021 10:04 A M CDT Height 157.1 cm (5' 1.85) 12/06/2021 10:04 AM C DT Body Mass Index 20.75 12/06/2021 10:04 AM CDT Plan of Treatment Health Maintenance Due Date Last Done Comments Pneumococcal vaccine (65+ ye ars) (1 of 1 - PCV) 2002 Zoster Vaccines (2 of 2) 01/31/2022 12/06/2021 Office Visit for Blood Press ure Check / Re-check 03/08/2022 12/06/2021 Depression Screening (Annual PHQ-2) 07/17/2023 Fall Risk Screen (Annual) 07/17/2023 COVID-19 Vaccine (6 - 2022-2 4 season) 2023 04/21/2023, 03/08/2022, 04/20/2021, Additional history exists DTaP,Tdap,and Td Vaccines (2 - Td or Tdap) 04/23/2031 04/23/2021 Influenza Vaccine Completed 04/12/2023, , 07/22/2021, Additional history exists Medical Devices Implanted Type Area Dye House Helper Device Identifier Shelf Expiration Date Model / Serial / Lot Ocular Lens Ocular Lens Eye
== END 2023-11-02 10:56 | disposition home or self-care (01) ==
LOC: NFLDREF 11-06 09:02
PROVIDERS: PCP Internal Medicine; Referring Provider Internal Medicine; Visit Provider Internal Medicine
DX: I35.8 Other nonrheumatic aortic valve disorders (principal); Z79.01 Long term (current) use of anticoagulants; Z51.81 Encounter for therapeutic drug level monitoring
CPT/HCPCS: 85610

== ENCOUNTER 2023-11-06 12:13 | Emergency (ER) | payer MEDICARE, SELFPAY ==
--- NOTE | 2023-11-06 12:16 | ED_ITS ---
HPI - General Adult General Date Seen: 11/06/23 Chief complaint: Hypertension Stated complaint: abnormal BP Time Seen by Provider: 11/06/23 12:16 History of Present Illness HPI narrative: 87-year-old female with a past medical history of aortic valve replacement (TAVR in December 2022), the thoracic aortic aneurysm, hypertension(chronically on losartan 25 mg twice daily. Her battery wrecker operator over the phone today told her to increase it to 50 mg twice daily. Also on carvedilol 3.125 mg twice daily.), hyperlipidemia, osteoporosis, PVCs, adjustment disorder, chronic neck pain, hyperlipidemia, recent mini-stroke (treated at a hospital in [place] about a month ago- was started on aspirin and change from simvastatin to rosuvastatin after that hospitalization) And review of medical records, I see she was seen in the urgent care in June (BP was 187/79), and in the ER in March(BP was 184/83) and January2023 ( BP was 175/81) last year. She presents to the ER this afternoon with her daughter jyoti because she is concerned about her blood pressure. She measured and it was about 200/90. She says she always has had high blood pressure since last fall. She has a very 10 gentle historian but it sounds like her blood pressure will range between the 140s and 180s when she measures it most days. She has been more worried about her blood pressure recently so has been measuring it twice a day but does not know what her measurements were and did not bring her recording along with her. She has multiple other symptoms. She has had trouble with unusual color vision in her left eye for the past several months. No eye pain. This is not an abrupt change. It is not any worse today than normal. Her daughter notes that she has a distant history of giant cell arteritis. She is not having any headaches. She and her daughter have tried to arrange a referral to a neurologist or neuro pan greaser. They have not had that happen yet. She is not having any chest pain. No shortness of breath. No palpitations. She does become very anxious sometimes and often times is anxious about her blood pressure. No swelling in her legs. Urination normal. No back pain or kidney pain. Related Data Home Medications Medication Instructions Recorded Confirmed ascorbic acid (vitamin C) 500 mg 500 mg PO BID 02/28/22 07/07/23 tablet melatonin 3 mg capsule 3 - 6 mg PO HS PRN 02/28/22 07/07/23 timolol maleate 0.5 % eye drops 1 drp ophthalmic (eye) DAILY 08/19/22 07/07/23 losartan 25 mg tablet 50 mg PO QAM 07/07/23 11/06/23 aspirin 81 mg tablet,delayed 81 mg PO DAILY 11/06/23 11/06/23 release carvedilol 3.125 mg tablet 3.125 mg PO BID 11/06/23 11/06/23 Previous Rx's Medication Instructions Recorded simvastatin 10 mg tablet 10 mg PO HS #90 tabs 11/08/22 amoxicillin 500 mg capsule 2,000 mg (4 x 500 mg) PO ONCE #4 07/03/23 caps warfarin 3 mg tablet 6 mg PO QDAY #180 tabs 09/28/23 amlodipine 5 mg tablet 5 mg PO BID #60 tabs 11/06/23 Allergies Allergy/AdvReac Type Severity Reaction Status Date / Time lidocaine Allergy Severe shaking Verified 07/07/23 16:25 Sulfa (Sulfonamide Allergy Unknown Unknown Verified 07/07/23 16:25 Antibiotics) [facility] Medical History History of aortic regurgitation ?Z86.79 - Personal history of other diseases of the circulatory system (ICD- 10) History of diverticulitis ?Z87.19 - Personal history of other diseases of the digestive system (ICD-10) History of pulmonary embolism (2019) ?Z86.711 - Personal history of pulmonary embolism (ICD-10) History of giant cell arteritis (2016) ?Z86.79 - Personal history of other diseases of the circulatory system (ICD- 10) Surgical History History of tympanostomy (1971) ?Z98.890 - Other specified postprocedural states (ICD-10) History of tonsillectomy (1948) ?Z90.89 - Acquired absence of other organs (ICD-10) History of section (1960) ?Z98.891 - History of uterine scar from previous surgery (ICD-10) History of bilateral cataract extraction (2020) ?Z98.41 - Cataract extraction status, right eye (ICD-10) ?Z98.42 - Cataract extraction status, left eye (ICD-10) History of appendectomy (1950) ?Z90.49 - Acquired absence of other specified parts of digestive tract (ICD- 10) Family History Daughter Breast cancer Mother High blood pressure Father High blood pressure Social History Narrative: She lives independently at [facility]. Her daughter Emilia is healthcare power of beater room supervisor. Her code status is full. She does not smoke. She does not drink alcohol. Highest level of school completed/degree received: Bachelor's degree Smoking Status: Never smoker Do you use any of these nicotine containing products: None Second hand tobacco smoke exposure: No How often do you have a drink containing alcohol: never AUDIT-C Alcohol total score: 0 Non-prescribed substance use: denies use Caffeine: No Little interest or pleasure in doing things: not at all Feeling down, depressed, or hopeless: not at all service: No Exam Const: Vital Signs, click to edit/add: Vital Signs - 24 hr 11/06/23 12:29 11/06/23 15:17 11/06/23 15:18 Temperature 97.9 F Pulse Rate [Right Pulse Oximeter] 68 Respiratory Rate 18 Blood Pressure [Ri ght Upper Arm] 202/69 H 197/69 H Pulse Oximetry 98 96 96 Oxygen Delivery Me thod Room Air Course Vital Signs Vital signs: Initial Vital Signs Temperature 97.9 F 11/06/23 12:29 Temperature Source Temporal Artery Scan 11/06/23 12:29 Pulse Rate 68 11/06/23 12:29 Respiratory Rate 18 11/06/23 12:29 Blood Pressure 202/69 H 11/06/23 12:29 Blood Pressure Mean 113 H 11/06/23 12:29 Blood Pressure Position Sitting 11/06/23 12:29 Pulse Oximetry 98 11/06/23 12:29 Oxygen Delivery Method Room Air 11/06/23 12:29 Vital Signs Temperature 97.9 F 11/06/23 12:29 Pulse Rate 68 11/06/23 12:29 Respiratory Rate 18 11/06/23 12:29 Blood Pressure 202/69 H 11/06/23 12:29 Pulse Oximetry 98 11/06/23 12:29 Oxygen Delivery Method Room Air 11/06/23 12:29 Temperature 97.9 F 11/06/23 12:29 Pulse Rate 68 11/06/23 12:29 Respiratory Rate 18 11/06/23 12:29 Blood Pressure 197/69 H 11/06/23 15:18 Pulse Oximetry 96 11/06/23 15:18 Oxygen Delivery Method Room Air 11/06/23 12:29 Medical Decision Making MDM Narrative Medical decision making narrative: This patient presents for evaluation of elevated blood pressure. There is known history of hypertension in the past. She had been on antihypertensive since last year when she had her aortic valve replaced and her battery wrecker operator increased her dose of losartan from 25 mg b.i.d. up to 50 mg b.i.d. today because of recent poor blood pressure control. She is also on carvedilol 3.125 mg b.i.d. She has had multiple symptoms over recent months which she attributes to high blood pressure including color discrepancy between her eyes, intermittent blurry vision. She also had a recent stroke/TIA, treated at a hospital in [place] a couple of months ago. She is not having any active chest pain, headache, or stroke symptoms today. No concerning symptoms of chest pain , severe headache, neurologic deficits. The workup here is negative and the patient does not have any clinical, laboratory, ecg or historical signs of end-organ dysfunction. There is no signs of hypertensive emergency or urgency. INR is therapeutic at 3.3. With her visual disturbance consider possible giant cell arteritis although she is not having any active headache. Sed rate is 12 which would argue against active inflammation. At this point I do not think she needs steroids. Supportive outpatient management is therefore indicated with close follow-up of primary care physician. Given data obtained here in ED, will have her continue her current meds and also add amlodipine for therapy at this time and encouraged serial blood pressure monitoring at home to aid primary or Cardiology in decision making regarding hypertension. Lab Data Labs: Lab Results 11/06/23 Range/Units 13:44 WBC 5.76 (4.50-11.00) K/uL RBC 4.14 (4.00-5.20) m/uL Hgb 12.1 (12.0-16.0) gm/dL Hct 38.0 (33.0-51.0) % MCV 92 (80-100) fL MCH 29 (26-34) pg MCHC 32 (32-36) gm/dL RDW Coeff of Olivia 13.1 (11.5-15.5) % Plt Count 163 (140-440) K/uL Neut % (Auto) 61.0 (42.0-72.0) % Lymph % (Auto) 28.6 (20-44) % [place] % (Auto) 8.3 (0.0-11.0) % Eos % (Auto) 1.7 (0.0-7.0) % Baso % (Auto) 0.2 (0.0-3.0) % Neut # (Auto) 3.51 (1.7-7.0) K/uL Lymph # (Auto) 1.65 (0.90-2.90) K/uL [place] # (Auto) 0.50 (0.00-0.90) K/UL Eos # (Auto) 0.10 (0.00-0.50) K/uL Baso # (Auto) 0.01 (0.00-0.30) K/uL Abs Immat Gran (auto) 0.01 (0.00-0.30) K/uL Imm/Tot Granulo (auto) 0.2 % ESR 12 (2-20) mm/hr INR 3.35 H (0.91-1.10) Sodium 140 (135-149) mmol/L Potassium 4.1 (3.6-5.1) mmol/L Chloride 112 (96-114) mmol/L Carbon Dioxide 30 (20-32) mmol/L Anion Gap -2 L (7-15) mEq/L BUN 21 (7-30) mg/dL Creatinine 0.7 (0.5-1.5) mg/dL Estimated Creat Clear 32.53 Estimated GFR 85 ml/min Glucose 87 (60-115) mg/dL Calcium 9.3 (8.4-10.6) mg/dL Troponin I < 0.01 L (0.01-0.04) ng/mL Imaging Data Chest x-ray: Attestation: I have reviewed the pertinent imaging results. Radiologist's impression: FINDINGS: Medical Devices: None. Lung Volumes: Adequate inspiration. No significant atelectasis. Lungs: Clear lungs. Pleura and Pleural spaces: No significant pleural effusion. No pneumothorax. Mediastinum: Stable. TAVR. Bony Thorax and Soft Tissues: No significant incidental findings. Unchanged diffuse osteopenia of the thoracic spine, contiguous multilevel midthoracic spine disc degeneration and dextroscoliosis. Unchanged lpyi-ia-nxpdksvo compression deformity of 1 of the upper lumbar vertebral bodies. IMPRESSION: No imaging findings pertinent to the indication for the exam or significant unrelated findings. Incidental findings described in the body of the report. ECG Data Attestation: I personally reviewed and interpreted this ECG as follows: Interpretation: Normal sinus rhythm rate 63 Rate: 63 OH: 160 QRS axis: Normal axis. Left bundle-branch block morphology ST segment/T wave: No ST segment elevation or depression QTc: 478 Discharge Plan Discharge Clinical Impression: Hypertension Patient Disposition: Home, Self-Care Condition: Stable Instructions: Hypertension (ED) Additional Instructions: As we discussed, please follow-up with your doctor or your battery wrecker operator by to recheck for your blood pressure and see how your controlled is going. Please try to check your blood pressure twice per day and keep a log of your blood pressure. Also keep a log of any symptoms that go along with it. Continue on your carvedilol. Continue on the new higher dose of your losartan. Also I will send a new prescription for 3rd blood pressure medication- amlodipine. Pick this up at the pharmacy and start taking it tonight. Please come back to the ER right away if you have any concerns-especially if you have bad headache, new stroke symptoms, chest pain or trouble breathing, or if you have any other worries. Prescriptions: New amlodipine 5 mg tablet 5 mg PO BID Qty: 60 0RF No Action losartan 25 mg tablet 50 mg PO QAM melatonin 3 mg capsule 3 - 6 mg PO HS PRN ascorbic acid (vitamin C) 500 mg tablet 500 mg PO BID aspirin 81 mg tablet,delayed release (DR/EC) 81 mg PO DAILY carvedilol 3.125 mg tablet 3.125 mg PO BID timolol maleate 0.5 % drops 1 drp ophthalmic (eye) DAILY Patient Comments: left eye simvastatin 10 mg tablet 10 mg PO HS Qty: 90 2RF amoxicillin 500 mg capsule 2,000 mg PO ONCE Qty: 4 0RF Rx Instructions: 1 hour prior to dental appointment warfarin 3 mg tablet 6 mg PO QDAY Qty: 180 3RF Protocol: Dose Management Condition: Monday Dose/Route: 6 mg Instruction: 2 x 3 mg tablets Condition: Monday Dose/Route: 6 mg Instruction: 2 x 3 mg tablets Condition: Monday Dose/Route: 6 mg Instruction: 2 x 3 mg tablets Condition: Monday Dose/Route: 6 mg Instruction: 2 x 3 mg tablets Condition: Dose/Route: 6 mg Instruction: 2 x 3 mg tablets Condition: Monday Dose/Route: 6 mg Instruction: 2 x 3 mg tablets Condition: Monday Dose/Route: 6 mg Instruction: 2 x 3 mg tablets Protocol Text: Adjustment Start Date: 11/02/23 INR Value: 3.02 INR Date: 11/02/23 Recheck Date: 11/16/23 Rx Instructions: 6mg daily Follow Up/Referrals: Neema Koenig MD [Primary Care Provider] - Stand Alone Forms: MyHealth Info Instructions
[2023-11-06 12:29] VITALS: BP 202/69; PULSE 68; RESP 18; TEMP 36.6; O2SAT 98; BMI 20.9
--- NOTE | 2023-11-06 13:27 | XR_ITS ---
Patient: SONA PETER Facility:?[facility] Patient ID:?[id number] Site Patient ID:?[id number] Site :?[id number] Study:?XRay-Chest 2 VIEW-11/06/2023 2:03:13 PM Ordering Physician:CYNTHIA Final Report: INDICATION: Hypertension. COMPARISON: 07/07/2023 TECHNIQUE: 2 views. FINDINGS: Medical Devices: None. Lung Volumes: Adequate inspiration. No significant atelectasis. Lungs: Clear lungs. Pleura and Pleural spaces: No significant pleural effusion. No pneumothorax. Mediastinum: Stable. TAVR. Bony Thorax and Soft Tissues: No significant incidental findings. Unchanged diffuse osteopenia of the thoracic spine, contiguous multilevel midthoracic spine disc degeneration and dextroscoliosis. Unchanged lzrm-nw-kgpvthvv compression deformity of 1 of the upper lumbar vertebral bodies. IMPRESSION: No imaging findings pertinent to the indication for the exam or significant unrelated findings. Incidental findings described in the body of the report. Dictated by Daniel Jurado MD @ 11/06/2023 2:11:45 PM Signed by:?Daniel Jurado MD @11/06/2023 2:11:45 PM (Electronic Signature)
[2023-11-06 13:53] LABS: Basophils Absolute Auto 0.01 K/uL (0.00-0.30); Basophils Percent Auto 0.2 % (0.0-3.0); Eosinophils Percent Auto 1.7 % (0.0-7.0); Hemoglobin* 12.1 gm/dL (12.0-16.0); Immature Granulocytes Abs Auto 0.01 K/uL (0.00-0.30); Immature Granulocytes Pct Auto 0.2 %; Lymphocytes Absolute Auto 1.65 K/uL (0.90-2.90); Lymphocytes Percent Auto 28.6 % (20-44); Mean Corpuscular HGB Conc 32 gm/dL (32-36); Mean Corpuscular Hemoglobin 29 pg (26-34); Mean Corpuscular Volume 92 fL (80-100); Monocytes Percent Auto 8.3 % (0.0-11.0); Neutrophils Absolute Auto 3.51 K/uL (1.7-7.0); Platelet Count* 163 K/uL (140-440); RDW Coefficient of Variation % 13.1 % (11.5-15.5); Red Blood Count 4.14 m/uL (4.00-5.20); White Blood Count* 5.76 K/uL (4.50-11.00)
[2023-11-06 13:59] LABS: Slide Review Reflex No
[2023-11-06 14:12] LABS: Chloride* 112 mmol/L (96-114); Sodium* 140 mmol/L (135-149)
[2023-11-06 14:13] LABS: Potassium* 4.1 mmol/L (3.6-5.1)
[2023-11-06 14:14] LABS: INR 3.35 (0.91-1.10); Prothrombin Time 36.6 Seconds
[2023-11-06 14:16] LABS: Anion Gap -2 mEq/L (7-15); Blood Urea Nitrogen* 21 mg/dL (7-30); Calcium* 9.3 mg/dL (8.4-10.6); Carbon Dioxide* 30 mmol/L (20-32); Creatinine* 0.7 mg/dL (0.5-1.5); Est. Creatinine Clearance* 32.53; Estimated Glomerular Filt Rate 85 ml/min; Glucose* 87 mg/dL (60-115)
[2023-11-06 14:49] LABS: Troponin I* < 0.01 ng/mL (0.01-0.04)
--- OUTSIDE RECORDS SUMMARY | 2023-11-06 14:50 | XMS_ITS ---
Author Name Unknown Organization [facility] Address [address] [place] [address] Care Team Providers Care Well Servicing Rig Operator Name Role Phone Unavailable Unavailable Unavailable Surgery Details Not on file Complications Check Surgery Details section. Procedure Estimated Blood Loss Check Surgery Details section. Procedure Findings Check Surgery Details section. Procedure Specimens Taken Check Surgery Details section.
--- OUTSIDE RECORDS SUMMARY | 2023-11-06 14:50 | XMS_ITS | Encounter Summary ---
Author Name Unknown Organization [facility] Address [address] [place] [address] Care Team Providers Care Iron Plastic Bullet Maker Name Role Phone Unavailable Primary Care Provider Unavailabl e Encounter Details Date Type Department Care Team (Latest Contact Info) Description 08/30/2023 11:00 AM CANCER REGISTRY MANAGER Diagnostic Department of Otorhinolaryngology in [place], [place] [address] [place] [address] Apolonia Glover Au.D. [address] [place] [address] Loss Hearing Sensorineural Bilateral (Primary Dx) Social [...] often do you attend chur ch or advent services? More than 4 times per year 12/05/2021 Do you belong to any clubs o r organizations such as muslim groups, unions, fraternal or athletic groups, or [...] Answer Date Recorded PHQ-2 Score 1 03/03/2022 [facility] - [...] place to sleep or slept in a senior living (including now)? No 12/05/2021 Depression Answer Date [...] was fit with binaural Resound One 961 qrvxmvrc-wi-roe-ear hearing aids by a family friend. She has struggled with speech clarity. She was fit with silicone micromolds here on 10/31/2022. Ms. Amin currently wears the following: Hearing Aid Information Left Right Vice President Global Digital Marketing ReSound ReSound Model [id number] Style RITE (ylnvqegc-nd-sxy-ear) RITE (dbcjtpid-xi-vul-ear) Serial Number [id number] Battery Size [place] Ion Rechargeable [place]mont Ion Rechargeable Coupling 0 MP Controls Operator Molded Goods Silicone canal lock micromold 0MP policy specialist Silicone canal lock micromold Phone iPhone and [...] right side may need a more powerful policy specialist. Follow-up in 6-12 months for routine hearing aid check is recommended. #1 Loss Hearing Sensorineural Bilateral ER REGISTRY MANAGER documented in this encounter Plan of Treatment Not on file documented as of this encounter Visit Diagnoses Diagnosis Loss Hearing Sensorineural Bilateral- Primary documented in this encounter Additional Health Concerns Assessment Noted Time PHQ-9 Depression Total Score: 9 03/03/20 22 9:31 AM CDT documented as of this encounter
--- OUTSIDE RECORDS SUMMARY | 2023-11-06 14:50 | XMS_ITS | Clinical Summary ---
Author Name Unknown Organization [facility] Address [address] [place] [address] Care Team Providers Care Door Fitter Name Role Phone Unavailable Primary Care Provider Unavailabl e Source Comments Patient records contain information from all sites at [facility]. For routine questions regarding patient records, call [phone] during business hours, M-F 8:00 AM - 5:00 PM Central Time. Record requests for emergency care only can be directed to [phone] at any time.[facility] Allergies Active Allergy Reactions Criticality Noted Date [...] Department Care Team Description 08/30/2023 11:00 AM STEEL TIER Diagnostic Department of Otorhinolaryngology in [place], [place] [address] [place] [address] Apolonia Glover Au.D. Loss Hearing Sensorineural Bilateral (Primary Dx) 08/15/2023 1:00 PM STEEL TIER Diagnostic Department of Otorhinolaryngology in [place], [place] [address] [place] [address] Astrid Ellis, Ph.D. Loss Hearing Sensorineural Bilateral [...] often do you attend chur ch or worship services? More than 4 times per year 12/05/2021 Do you belong to any clubs o r organizations such as voodoo groups, unions, fraternal or athletic groups, or [...] Answer Date Recorded PHQ-2 Score 1 03/03/2022 [facility] - Occupational Stress Questionnaire Answer Date Recorded [...] T Respiratory Rate 16 08/06/2019 2:56 PM STEEL TIER Oxygen Saturation 99% 08/06/2019 3:22 PM STEEL TIER Inhaled Oxygen Concentration - - Weight 51.2 [...] history exists Medical Devices Implanted Type Area Principal Account Clerk Device Identifier Shelf Expiration Date Model / Serial / Lot Ocular Lens Ocular Lens Eye
--- OUTSIDE RECORDS SUMMARY | 2023-11-06 14:50 | XMS_ITS | Encounter Summary ---
Author Name Unknown Organization [facility] Address [address] [place] [address] Care Team Providers Care Reel Cart Operator Name Role Phone Unavailable Primary Care Provider Unavailabl e Encounter Details Date Type Department Care Team (Latest Contact Info) Description 08/15/2023 1:00 PM STOKER INSTALLER Diagnostic Department of Otorhinolaryngology in [place], [place] [address] [place] [address] Astrid Ellis, Ph.D. [address] [place] [address] Loss Hearing Sensorineural Bilateral (Primary Dx) Social [...] often do you attend chur ch or gnosticism services? More than 4 times per year 12/05/2021 Do you belong to any clubs o r organizations such as alevism groups, unions, fraternal or athletic groups, or [...] Answer Date Recorded PHQ-2 Score 1 03/03/2022 [facility] - Occupational Stress [...] place to sleep or slept in a penitentiary (including now)? No 12/05/2021 Depression Answer Date [...] was fit with binaural Resound One 961 xfbegnxo-bw-wgd-ear hearing aids by a family friend. She [...] the following: Hearing Aid Information Left Right Brake Reliner ReSound ReSound Model [id number] Style RITE (pngosvdp-ws-bek-ear) RITE (bbnqoita-dd-yvj-ear) Serial Number [id number] Battery Size [place] Ion Rechargeable [place] Ion Rechargeable Coupling 0 MP House Painter Silicone canal lock micromold 0MP renewals representative Silicone canal lock micromold Phone iPhone and Smart 3D naga Warranty Date 05/29/2024 05/29/2024 Accessory Information Serial Number End of Warranty Date Multi reuben: fit 03/03/2022 OBJECTIVE Otoscopic evaluation was performed and indicated non-occluding cerumen bilaterally. ASSESSMENT/PLAN Following hearing aid cleaning, listening check indicates broken receivers for both devices. The right speaker has been broken off and the left renewals representative wire has been twisted. The following components [...] Bilateral Appointment assisted by Jolly Ray, audiology adult probation officer ER INSTALLER documented in this encounter Plan of Treatment Not on file documented as of this encounter Visit Diagnoses Diagnosis Loss Hearing Sensorineural Bilateral- Primary documented in this encounter Additional Health Concerns Assessment Noted Time PHQ-9 Depression Total Score: 9 03/03/20 22 9:31 AM CDT documented as of this encounter
--- OUTSIDE RECORDS SUMMARY | 2023-11-06 14:50 | XMS_ITS | Referral Summary ---
Author Name Unknown Organization [place] Address [address] [place] [id number] Care Team Providers Care Aviation Safety Technician Name Role Phone Megan Dong MD Unavailable Estephania Lozano AuD Unavailable Neema Koenig MD Primary Care Provider Val Broderick AuD Unavailable [phone] Lakia Romero AuD Unavailable Megan Dong [...] of Treatment Not on file Care Teams Aviation Safety Technician Relationship Specialty Start Date End Date Neema Koenig MD [facility] [address] [place] [address] PCP - General Internal Medicine 07/19/22 Megan Dong MD [address] [place] [address] [id number] Otolaryngology 07/06/22 Estephania Lozano AuD [address] [place] [id number] Batch Records Clerk Audiology 07/06/22 Val Broderick AuD [address] [place] [address] Batch Records Clerk Audiology 07/19/22 Lakia Romero AuD [address] [place] [id number] Batch Records Clerk Audiology 09/26/22 Megan Dong MD [address] [place] [address] [id number] Assigned Surgical Provider 12/10/22
--- OUTSIDE RECORDS SUMMARY | 2023-11-06 14:50 | XMS_ITS | Encounter Summary ---
Author Name Unknown Organization [facility] Address [address] [place] [address] Care Team Providers Care Operations Mgr Name Role Phone Unavailable Primary Care Provider Unavailabl e Reason for Referral * Outpatient (Routine) - Closed Specialty Diagnoses / Procedures Referred By Karla larson Referred To Contact Neurology Diagnoses Pain Head Neema Koenig M.D. [address] [place] [address] [facility] Referral ID Status Reason Start Date Expiration Date Visits Re quested Visits Authorized [id number] Closed 11/23/2017 05/22/2018 1 1 Encounter Details Date Type Department Care Team (Late st Contact Info) Description 11/23/2017 [facility] [address] [place] [address] Neema Koenig M.D. [address] [place] [address] Pain Head (Primary Dx) Social [...]
--- OUTSIDE RECORDS SUMMARY | 2023-11-06 14:50 | XMS_ITS | Clinical Summary ---
Author Name Unknown Organization [place] Address [address] [place] [address] Care Team Providers Care Greenhouse Technician Name Role Phone Megan Dong MD Unavailable Estephania Lozano AuD Unavailable Neema Koenig MD Primary Care Provider Val Broderick AuD Unavailable [phone] Lakia Romero AuD Unavailable Megan Dong MD Unavailable [phone] Allergies Active Allergy Reactions Criticality Noted Date [...] age to complete this topic Care Teams Greenhouse Technician Relationship Specialty Start Date End Date Neema Koenig MD [facility] [address] [place] [address] PCP - General Internal Medicine 07/19/22 Megan Dong MD [address] [place] [address] Otolaryngology 07/06/22 Estephania Lozano AuD [address] [place] [address] Electric Meter Technician Audiology 07/06/22 Val Broderick AuD [address] [place] [address] [phone] Electric Meter Technician Audiology 07/19/22 Lakia Romero AuD [address] [place] [address] Electric Meter Technician Audiology 09/26/22 Megan Dong MD [address] [place] [address] [phone] Assigned Surgical Provider 12/10/22
--- OUTSIDE RECORDS SUMMARY | 2023-11-06 14:50 | XMS_ITS | Referral Summary ---
Author Name Unknown Organization [facility] Address [address] [place] [address] Care Team Providers Care Control Technician Name Role Phone Unavailable Primary Care Provider Unavailabl e Source Comments Patient records contain information from all sites at [facility]. For routine questions regarding patient records, call [phone] during business hours, M-F 8:00 AM - 5:00 PM Central Time. Record requests for emergency care only can be directed to [phone] at any time.[facility] Encounters Date Type Department Care Team Description 08/30/2023 11:00 AM CHOKER SETTER Diagnostic Department of Otorhinolaryngology in [place], [place] [address] [place] [address] Apolonia Glover, [place]. Loss Hearing Sensorineural Bilateral (Primary Dx) 08/15/2023 1:00 PM CHOKER SETTER Diagnostic Department of Otorhinolaryngology in [place], [place] [address] [place] [address] Astrid Ellis, Ph.D. Loss Hearing Sensorineural Bilateral [...] week 12/05/2021 How often do you attend [facility] or jainism services? More than 4 times per year 12/05/2021 Do you belong to any clubs o r organizations such as baptism groups, unions, fraternal or athletic groups, or [...] Recorded PHQ-2 Score 1 03/03/2022 [facility] - Occupational Stress Questionnaire Answer Date [...] place to sleep or slept in a fci (including now)? No 12/05/2021 Depression Answer Date [...] T Respiratory Rate 16 08/06/2019 2:56 PM CHOKER SETTER Oxygen Saturation 99% 08/06/2019 3:22 PM CHOKER SETTER Inhaled Oxygen Concentration - - Weight 51.2 kg (112 lb 14 oz) 12/06/2021 10:04 A M CDT Height 157.1 cm (5' 1.85) 12/06/2021 10:04 AM C DT Body Mass Index 20.75 12/06/2021 10:04 AM CDT Plan of Treatment Not on file Medical Devices Implanted Type Area Visual Merchandising Specialist Device Identifier Shelf Expiration Date Model / Serial / Lot Ocular Lens Ocular Lens Eye
[2023-11-06 15:17] VITALS: O2SAT 96
[2023-11-06 15:18] VITALS: BP 197/69; O2SAT 96
[2023-11-06 15:30] VITALS: PULSE 61; O2SAT 97
[2023-11-06 15:32] VITALS: BP 195/80; PULSE 62; O2SAT 97
[2023-11-06 15:33] LABS: Erythrocyte SedimentationRate* 12 mm/hr (2-20)
[2023-11-06 15:58] VITALS: BP 203/81
== END 2023-11-06 16:01 | disposition home or self-care (01) ==
PROVIDERS: Emergency Provider Emergency Medicine; PCP Internal Medicine
DX: I10 Essential (primary) hypertension (principal)
CPT/HCPCS: 36415; 71046; 80048; 84484; 85025; 85610; 85651; 93005; 99283; 99285

== ENCOUNTER 2024-05-23 14:13 | Outpatient (CLI) | payer MEDICARE, SELFPAY ==
--- OUTSIDE RECORDS SUMMARY | 2024-05-23 14:16 | XMS_ITS | Encounter Summary ---
Author Organization [facility] Address [address] [place] [address] Care Team Providers Care Custom Wood Stair Builder Name Role Phone Elsewhere, Pcp Primary Care Provider Unavailabl e Encounter Details Date Type Department Care Team (Latest Contact Info) Description 04/12/2024 10:00 AM CDT Diagnostic Department of Otorhinolaryngology in [place], [place] [address] [place] [address] Titi Villa Au.D., C.C.C.-A [address] [place] [address] Loss Hearing Sensorineural Bilateral (Primary Dx) Social [...] often do you attend chur ch or orthodox services? More than 4 times per year 12/05/2021 Do you belong to any clubs o r organizations such as anglican groups, unions, fraternal or athletic groups, or [...] Answer Date Recorded PHQ-2 Score 1 03/03/2022 [facility] - Occupational Stress [...] 27) 9 03/03 Nutrition Answer Date Recorded On average, how many serving s of [...] degree: occupational, technical, or vocational program 01/21/2019 Comments No Sex and Gender Information Value Date Recorded Sex Assigned at Not recorded on cert ificate 05/09/2022 8:33 AM CDT Legal Sex Female 8:35 AM CDT Gender Identity Female 01/02/2018 7:39 AM CDT Sexual Orientation Not on file documented as of this encounter Progress Notes * Titi Villa Au.D., C.C.CArturo-A - 04/12/2024 10:00 AM CDT SUBJECTIVE REFERRAL: self CHIEF COMPLAINT/REASON FOR VISIT Hearing aid follow-up, accompanied by her daughter. HISTORY Shannen Amin is a 88 y.o. 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 Her last audiogram was completed at [facility] on 11/29/2022. She uses the following devices she obtained at [facility] [employer]: Hearing Aid Information Left Right Cheese Cutter ReSound ReSound Model One 961 ([id number]) One 961 ([id number]) Style RITE (nzvgvjoh-bb-wov-ear) RITE (zoucvpwx-sg-mio-ear) Serial Number [id number] Battery Size Summer Shade Ion Rechargeable Summer Shade Ion Rechargeable Coupling 1MP nutrition technician, silicone canal lock micromold [id number] 0MP nutrition technician, silicone canal lock micromold [id number] Warranty Date 05/29/2024 05/29/2024 Connectivity Paired to [employer], Micro Interventional Devices naga Accessory Information Serial Number End of Warranty Date Gluing Machine Adjuster 05/29/2024 MultiMic [id number] 03/10/2023 Ms. Amin's hearing aids were recently sent for service. OBJECTIVE Otoscopic evaluation was performed and indicated clear ear canals. Feedback calibration and real-ear measures were performed. ASSESSMENT/PLAN Aided real-ear probe microphone measures showed poor audibility in the right ear, good audibility in the left ear when compared to NAL-NL2 targets for conversational speech inputs (65 dB SPL). Follow-up in 6-12 months for routine hearing aid check is recommended. #1 Loss Hearing Sensorineural Bilateral documented in this encounter Plan of Treatment Not on file documented as of this encounter Visit Diagnoses Diagnosis Loss Hearing Sensorineural Bilateral- Primary documented in this encounter Additional Health Concerns Assessment Noted Time PHQ-9 Depression Total Score: 9 03/03/20 22 9:31 AM CDT documented as of this encounter Care Teams Custom Wood Stair Builder Relationship Specialty Start Date End Date Elsewhere, Pcp PCP - General Internal Medicine 02/08/24 documented as of this encounter
--- OUTSIDE RECORDS SUMMARY | 2024-05-23 14:16 | XMS_ITS | Clinical Summary ---
Author Organization [facility] Address [address] [place] [address] Care Team Providers Care Diesel Service Apprentice Name Role Phone Elsewhere, Pcp Primary Care Provider Unavailabl e Source Comments Patient records contain information from all sites at [facility]. For routine questions regarding patient records, call [phone] during business hours, M-F 8:00 AM - 5:00 PM Central Time. Record requests for emergency care only can be directed to [phone] at any time.[facility] Allergies Active Allergy Reactions Criticality Noted Date Comments Lidocaine Other (see comments) High 2016 Shakey Sulfa (Sulfonamide Antibiotics) Other (see comments) Low 2016 Sleepy Medications * This document contains information received from the source organization and may not represent a complete record from that organization. amLODIPine (NORVASC) 2.5 mg tablet Take 2.5 mg by mouth at bedtime. 3 9 Active ascorbic acid, vitamin C, (VITAMIN C) 500 mg tablet Take 500 mg by mouth daily. Active calcium carbonate-vitam in D3 500 mg-10 mcg (400 unit) tablet Take 1 tablet by mouth daily. Active timolol (TIMOPTIC) 0.5 % ophthalmic solution Administer 1 drop into the left eye 2 (two) times a day. 2 Active carvediloL (Coreg) 3.125 mg tablet Take 6.25 mg by mouth 2 (two) times a day. 4 Active rosuvastatin (Crestor) 20 mg tablet Take 20 mg by mouth daily. 4 Active losartan (Cozaar) 50 mg tablet Take 1 tablet by mouth 2 (two) times a day. 4 Active warfarin (Jantoven) 3 mg tablet Take 6 mg by mouth daily. Active aspirin [address] tablet Take 1 tablet by mouth daily. 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 Loss Hearing Sensorineural Bilateral (Primary Dx) from Last 3 Months Immunizations Name Administration Dates Next Due Influenza high dose QV(65 ye ars or older) (PF) 06/29/2020 Influenza, Unspecified 05/02/2021 RZV (SHINGRIX) 12/06/2021(Deferred: Patient Ref used) Tdap 04/23/2021 influenza trivalent vaccine (6 months and older)(PF) 05/03/2011 Family History Medical History Relation Name Comments Hypertension Father father Kidney disease Father father canver Relation Name Status Comments Father father Social History Tobacco Use Types Packs/Day Years Used Date Smoking Tobacco: Never Smokeless Tobacco: Never Tobacco Cessation:Counseling Given: Not Answered Alcohol Use Standard Drinks/Week Comments No 0 [...] often do you attend chur ch or jehovah's witness services? More than 4 times per year 12/05/2021 Do you belong to any clubs o r organizations such as pentecostalism groups, unions, fraternal or athletic groups, or [...] Answer Date Recorded PHQ-2 Score 1 03/03/2022 [facility] Occupat ional Health - Occupational Stress [...] T Respiratory Rate 16 08/06/2019 2:56 PM RECEIVING OPERATOR Oxygen Saturation 99% 08/06/2019 3:22 PM RECEIVING OPERATOR Inhaled Oxygen Concentration - - Weight 51.2 kg (112 lb 14 oz) 12/06/2021 10:04 A M CDT Height 157.1 cm (5' 1.85) 12/06/2021 10:04 AM C DT Body Mass Index 20.75 12/06/2021 10:04 AM CDT Plan of Treatment Health Maintenance Due Date Last Done Comments Pneumococcal vaccine (65+ years) (1 of 1 - PCV) 2002 RSV vaccine - (32-36 weeks) or 60+ years (1 - 1-dose 75+ series) 2012 Zoster Vaccines (2 of 2) 01/31/2022 12/06/2021 Depression Screening (Annual PHQ-2) 07/17/2023 Fall Risk Screen (Annual) 07/17/2023 Potassium Level 02/22/2024 02/21/2023, 12/16, 12/29/2022, Additional history exists Sodium Level 02/22/2024 02/21/2023, 12/16, 12/29/2022, Additional history exists COVID-19 Vaccine ( season) 2024 11/14/2023, 04/21/2023, 03/08/2022, Additional history exists Influenza Vaccine (#1) 2024 3, 07/22/2021, 05/02/2021, Additional history exists Creatinine Level (Kidney Function Test) 12/27/2024 12/28/2023, 06/27/2023, 02/21/2023, Additional history exists DTaP,Tdap,and Td Vaccines (2 - Td or Tdap) 04/23/2031 04/23/2021 IPV Vaccines Aged Out No longer eligi ble based on patient's age to complete this topic Medical Devices Implanted Type Area Cut Out And Marking Machine Operator Device Identifier Shelf Expiration Date Model / Serial / Lot Ocular Lens Ocular Lens Eye Procedures Procedure Name Priority Date/Time Associated Diagnosis Comments COMPREHENSIVE METABOLIC PANEL, S/P Routine 12/06/2021 9:26 AM CDT Personal History Of Infectious And Parasitic Disease (COVID-19) from Last 3 Months or Most Recently Relevant to Health Maintenance Results * Comprehensive Metabolic Panel (12/06/2021 9:26 AM CDT) Potassium, S 4.4 3.6 - 5.2 mmol/L 12/06/2021 10:40 AM CDT DTL Sodium, S 143 135 - 145 mmol/L 12/06/2021 10:40 AM CDT DTL Chloride, S 107 98 - 107 mmol/L 12/06/2021 10:40 AM CDT DTL Bicarbonate, S 27 22 - 29 mmol/L 12/06/2021 10:40 AM CDT DTL Anion Gap 9 7 - 15 12/06/2021 10:40 AM CDT DTL BUN (Blood Urea Nitrogen), S 19 6 - 21 mg/dL 12/06/2021 10:40 AM CDT DTL Creatinine 0.88 0.59 - 1.04 mg/dL 12/06/2021 10:40 AM CDT DTL eGFR-Non Black/ 61 >=60 mL/min/BS A 12/06/2021 10:40 AM CDT DTL Comment: ----ADDITIONAL INFORMATION---- Estimated GFR calculated using the 2009 CKD_EPI creatinine equation. eGFR-Black/ 70 >=60 mL/min/BS A 12/06/2021 10:40 AM CDT DTL Comment: ----ADDITIONAL INFORMATION---- Estimated GFR calculated using the 2009 CKD_EPI creatinine equation. Calcium, Total, S 9.7 8.8 - 10.2 mg/dL 12/06/2021 10:40 AM CDT DTL Glucose, S 92 70 - 140 mg/dL 12/06/2021 10:40 AM CDT DTL Protein, Total, S 6.4 6.3 - 7.9 g/dL 12/06/2021 10:40 AM CDT DTL Albumin, S 4.7 3.5 - 5.0 g/dL 12/06/2021 10:40 AM CDT DTL Aspartate Aminotransferase (AST), S 20 8 - 43 U/L 12/06/2021 10:40 AM CDT DTL Alkaline Phosphatase, S 70 35 - 104 U/L 12/06/2021 10:40 AM CDT DTL Alanine Aminotransferase (ALT), S 13 7 - 45 U/L 12/06/2021 10:40 AM CDT DTL Bilirubin, Total, S 1.0 <=1.2 mg/dL 12/06/2021 10:40 AM CDT DTL Blood (Blood, Venous) 12/06/2021 9:26 AM CDT 12/06/2021 10:15 AM CDT Danette Nguyen M.D. LAB BLOOD ADD-ON Final Resul t [facility] [place] [address] [place] [address], [facility] [address] [place] [address] from Last 3 Months or Most Recently Relevant to Health Maintenance Insurance [facility] Care Teams Diesel Service Apprentice Relationship Specialty Start Date End Date Elsewhere, Pcp PCP - General Internal Medicine 02/08/24
--- OUTSIDE RECORDS SUMMARY | 2024-05-23 14:16 | XMS_ITS ---
Author Organization [facility] Address [address] [place] [address] Care Team Providers Care Camera Operator Name Role Phone Unavailable Unavailable Unavailable Surgery Details Not on file Complications Check Surgery Details section. Procedure Estimated Blood Loss Check Surgery Details section. Procedure Findings Check Surgery Details section. Procedure Specimens Taken Check Surgery Details section.
--- OUTSIDE RECORDS SUMMARY | 2024-05-23 14:16 | XMS_ITS | Referral Summary ---
Author Organization [facility] Address [address] [place] [address] Care Team Providers Care Sack Filler Name Role Phone Elsewhere, Pcp Primary Care Provider Unavailabl e Source Comments Patient records contain information from all sites at [facility]. For routine questions regarding patient records, call [phone] during business hours, M-F 8:00 AM - 5:00 PM Central Time. Record requests for emergency care only can be directed to [phone] at any time.[facility] Encounters Date Type Department Care Team Description 04/12/2024 10:00 AM CDT Diagnostic Department of Otorhinolaryngology in [place], [place] [address] [place] [address] Titi Villa Au.D., C.C.C.-A Loss Hearing Sensorineural Bilateral (Primary Dx) 03/19/2024 2:00 PM CDT Diagnostic Department of Otorhinolaryngology in [place], [place] [address] [place] [address] Astrid Ellis, Ph.D. Loss Hearing Sensorineural Bilateral [...] trivalent vaccine (6 months and older)(PF) 05/03/2011 Social History Tobacco Use Types Packs/Day Years [...] often do you attend chur ch or lutheran services? More than 4 times per year 12/05/2021 Do you belong to any clubs o r organizations such as amish groups, unions, fraternal or athletic groups, or [...] Answer Date Recorded PHQ-2 Score 1 03/03/2022 [facility] of Occupat ional Health - [...] T Respiratory Rate 16 08/06/2019 2:56 PM TOOL AND EQUIPMENT RENTAL CLERK Oxygen Saturation 99% 08/06/2019 3:22 PM TOOL AND EQUIPMENT RENTAL CLERK Inhaled Oxygen Concentration - - Weight 51.2 kg (112 lb 14 oz) 12/06/2021 10:04 A M CDT Height 157.1 cm (5' 1.85) 12/06/2021 10:04 AM C DT Body Mass Index 20.75 12/06/2021 10:04 AM CDT Plan of Treatment Not on file Medical Devices Implanted Type Area Building Inspection Engineer Device Identifier Shelf Expiration Date Model / Serial / Lot Ocular Lens Ocular Lens Eye Procedures Procedure Name Priority Date/Time Associated Diagnosis Comments COMPREHENSIVE METABOLIC PANEL, S/P Routine 12/06/2021 9:26 AM CDT Personal History Of Infectious And Parasitic Disease (COVID-19) from Last 3 Months or Most Recently Relevant to Health Maintenance Results * Comprehensive Metabolic Panel (12/06/2021 9:26 AM CDT) [facility] Potassium, S 4.4 3.6 - 5.2 mmol/L [...] M.D. LAB BLOOD ADD-ON Final Resul t [facility] [address] [place] [address], [facility] [address] [place] [address] from Last 3 Months or Most Recently Relevant to Health Maintenance Insurance [facility] Care Teams Sack Filler Relationship Specialty Start Date End Date Elsewhere, Pcp PCP - General Internal Medicine 02/08/24
--- OUTSIDE RECORDS SUMMARY | 2024-05-23 14:17 | XMS_ITS | Encounter Summary ---
Author Organization [facility] Address [address] [place] [address] Care Team Providers Care Ear Nose Throat Surgeon Name Role Phone Elsewhere, Pcp Primary Care Provider Unavailabl e Encounter Details Date Type Department Care Team (Late st Contact Info) Description 02/14/2024 2:45 PM CDT Ancillary Procedure Department of Ophthalmology Social History Tobacco Use Types Packs/Day Years [...] week 12/05/2021 How often do you attend [facility] or muslim services? More than 4 times per year 12/05/2021 Do you belong to any clubs o r organizations such as mandaen groups, unions, fraternal or athletic groups, or [...] Answer Date Recorded PHQ-2 Score 1 03/03/2022 [facility] - Occupational Stress Questionnaire Answer Date [...] place to sleep or slept in a long-term (including now)? No 12/05/2021 Depression Answer Date [...] as of this encounter Plan of Treatment Not on file documented as of this encounter Procedures Procedure Name Priority Date/Time Associated Diagnosis Comments OPHTHALMOLOGY IMAGE EXAM Routine 02/14/2024 2:45 PM CDT documented in this encounter Results * Optical Coherence Tomography (OCT)-Ophthalmology Image Exam (02/14/2024 2:45 PM CDT) 02/14/2024 2:42 PM CDT Narrative IIMS - 02/14/2024 2:56 PM CDT This order has been created and auto-finalized to support the import of images acquired without order. The clinical documentation to support these images can be found on the encounter that produced images. us Provider Not In System IMG NON RAD IMAGING PROCE DURES Final Result IIMS NA documented in this encounter Visit Diagnoses Not on filedocumented in this encounter Additional Health Concerns Assessment Noted Time PHQ-9 Depression Total Score: 9 03/03/20 22 9:31 AM CDT documented as of this encounter Care Teams Ear Nose Throat Surgeon Relationship Specialty Start Date End Date Elsewhere, Pcp PCP - General Internal Medicine 02/08/24 documented as of this encounter
--- OUTSIDE RECORDS SUMMARY | 2024-05-23 14:17 | XMS_ITS | Encounter Summary ---
Author Organization [facility] Address [address] [place] [address] Care Team Providers Care Marketing Content Coordinator Name Role Phone Elsewhere, Pcp Primary Care Provider Unavailabl e Encounter Details Date Type Department Care Team (Late st Contact Info) Description 02/14/2024 8:45 AM CDT Ancillary Procedure Department of Ophthalmology Social [...] week 12/05/2021 How often do you attend [facility] or yarsani services? More than 4 times per year 12/05/2021 Do you belong to any clubs o r organizations such as religious groups, unions, fraternal or athletic groups, or [...] 1 03/03/2022 [facility] - Occupational Stress Questionnaire Answer Date [...] place to sleep or slept in a longterm (including now)? No 12/05/2021 Depression Answer Date [...] Diagnosis Comments OPHTHALMOLOGY IMAGE EXAM Routine 02/14/2024 8:45 AM CDT documented in this encounter Results * Visual Brown (VF)-Ophthalmology Image Exam (02/14/2024 8:45 AM CDT) 02/14/2024 8:41 AM CDT Narrative IIMS - 02/14/2024 11:38 AM CDT This order has been created and [...] documented as of this encounter Care Teams Marketing Content Coordinator Relationship Specialty Start Date End Date Elsewhere, Pcp PCP - General Internal Medicine 02/08/24 documented as of this encounter
--- OUTSIDE RECORDS SUMMARY | 2024-05-23 14:17 | XMS_ITS | Encounter Summary ---
Author Organization [facility] Address [address] [place] [address] Care Team Providers Care Methods Time Analyst Name Role Phone Elsewhere, Pcp Primary Care Provider Unavailabl e Encounter Details Date Type Department Care Team (Latest Contact Info) Description 02/14/2024 12:30 PM CDT Ancillary Procedure Department of Ophthalmology in [place], [place] [address] [place] [address] Aimee Saldana M.D. [address] [place] [address] Other Visual Disturbances Social History Tobacco Use Types Packs/Day Years [...] any clubs o r organizations such as adventist groups, unions, fraternal or athletic groups, or [...] Answer Date Recorded PHQ-2 Score 1 03/03/2022 [facility] - Occupational [...] place to sleep or slept in a chcf (including now)? No 12/05/2021 Depression Answer Date [...] Procedure Name Priority Date/Time Associated Diagnosis Comments FUNDUS PHOTOS - OU - BOTH EYES Routine 02/14/2024 1:37 PM CDT Other Visual Disturbances documented in this encounter Results * Fundus Photos - OU - Both Eyes (02/14/2024 1:37 PM CDT) Narrative OPHTHALMOLOGY IMAGING EXAM - 02/15/2024 12:39 PM CDT Right Eye Fundus photo type obtained is Color. Left Eye Fundus photo type obtained is Color. Notes CH See note. us Aimee Saldana M.D. OPHTH PHOTOGRAPHY Final R esult OPHTHALMOLOGY IMAGING EXAM documented in this encounter Visit Diagnoses Diagnosis Other Visual Disturbances documented in this encounter Additional Health Concerns Assessment Noted Time PHQ-9 Depression Total Score: 9 03/03/20 22 9:31 AM CDT documented as of this encounter Care Teams Methods Time Analyst Relationship Specialty Start Date End Date Elsewhere, Pcp PCP - General Internal Medicine 02/08/24 documented as of this encounter
--- OUTSIDE RECORDS SUMMARY | 2024-05-23 14:17 | XMS_ITS | Encounter Summary ---
Author Organization [facility] Address [address] [place] [address] Care Team Providers Care Healthcare Sales Representative Name Role Phone Elsewhere, Pcp Primary Care Provider Unavailabl e Encounter Details Date Type Department Care Team (Latest Contact Info) Description 02/14/2024 9:00 AM CDT Diagnostic Department of Otorhinolaryngology in [place], [place] [address] [place] [address] Astrid Ellis, Ph.D. [address] [place] [address] Loss Hearing Sensorineural Bilateral (Primary Dx) Social [...] often do you attend chur ch or rastafari services? More than 4 times per year 12/05/2021 Do you belong to any clubs o r organizations such as sikhism groups, unions, fraternal or athletic groups, or [...] Answer Date Recorded PHQ-2 Score 1 03/03/2022 [facility]at ional Health - [...] place to sleep or slept in a custodial (including now)? No 12/05/2021 Depression Answer Date [...] as of this encounter Progress Notes * Astrid Ellis, Ph.D. - 02/14/2024 9:00 AM CDT SUBJECTIVE CHIEF COMPLAINT/REASON FOR VISIT Hearing aid follow-up, accompanied by one of her daughters, who also has hearing loss and has 2 [employer] Ponto bone-conduction devices. HISTORY Shannen Amin is a 87 y.o. 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 She was fit with binaural Resound One 961 chaclegk-bb-byt-ear hearing aids by a family friend. She has struggled with speech clarity. She was fit with silicone micromolds here on 10/31/2022. Ms. Amin currently wears the following: Hearing Aid Information Left Right Mountain Or Glacier Guide ReSound ReSound Model [id number]-[id number] [id number] Style RITE (ongzpdoz-uk-bvu-ear) RITE (nsdjtlfq-wt-iap-ear) Serial Number [id number] Battery Size Kingwood Ion Rechargeable Kingwood Ion Rechargeable Coupling 0 MP Window Sash Installer Silicone canal lock micromold 0MP gut carrier Silicone canal lock micromold Phone iPhone and Smart 3D edson Warranty Date 05/29/2024 05/29/2024 Accessory Information Serial Number End of Warranty Date Multi reuben: fit 03/03/2022 Mrs. Amin has obtained hearing aid services at [facility] and [facility]. Today she reported that her right hearing aid seems to be a bit loud and distorted and she continues to have difficulty with clarity. She reported that she occasionally uses her mini reuben and finds it helpful. OBJECTIVE Otoscopy showed ears clear of cerumen. Datalogging showed 13 hours of average daily use of the hearing aids, 88% all around, 13% hearing in noise, 6% hearing in noise (2nd), and <1% streaming without consistent volume adjustments. ASSESSMENT/PLAN Hearing aid listening check and visual inspection showed satisfactory function of both hearing aids. Real-ear measures showed good audibility for conversational level speech in each ear. The mid-frequency gain was increased slightly in an attempt to increase clarity. The MPO was decreased in the right hearing aid. She reported improved comfort and possible improved clarity. I showed her the [employer]dson for quick adjustments to the hearing aids. She was able to managethe triple click and access the adjustments. Her daughter also did this on her phone for her [employer] devices, stating that she did not know about the option. Follow-up in 6-12 months for routine hearing [...] documented as of this encounter Care Teams Healthcare Sales Representative Relationship Specialty Start Date End Date Elsewhere, Pcp PCP - General Internal Medicine 02/08/24 documented as of this encounter
--- OUTSIDE RECORDS SUMMARY | 2024-05-23 14:17 | XMS_ITS | Encounter Summary ---
Author Organization [facility] Address [address] [place] [address] Care Team Providers Care Washer Cutter Name Role Phone Elsewhere, Pcp Primary Care Provider Unavailabl e Reason for Visit * Reason Comments Other Encounter Details Date Type Department Care Team (Latest Contact Info) Description 03/19/2024 2:00 PM CDT Diagnostic Department of Otorhinolaryngology in [place], [place] [address] [place] [address] Astrid Ellis, Ph.D. [address] [place] [address] Loss Hearing Sensorineural Bilateral (Primary Dx) Social [...] often do you attend chur ch or episcopalian services? More than 4 times per year 12/05/2021 Do you belong to any clubs o r organizations such as hoahaoism groups, unions, fraternal or athletic groups, or [...] Answer Date Recorded PHQ-2 Score 1 03/03[facility] Answer Date [...] Progress Notes * Astrid Ellis, Ph.D. - 03/19/2024 2:00 PM CDT SUBJECTIVE CHIEF COMPLAINT/REASON FOR VISIT Hearing aid follow-up, accompanied by one of her daughters HISTORY Shannen Amin is a 87 y.o. 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 She was fit with binaural Resound One 961 zoathztl-gd-psu-ear hearing aids by a family friend. She has struggled with speech clarity. She was fit with silicone micromolds here on 10/31/2022. Ms. Amin currently wears the following hearing aids that she obtained elsewhere: Hearing Aid Information Left Right Work Adjustment Instructor ReSound ReSound Model [id number] Style RITE (ytmrntmo-yq-sea-ear) RITE (rzasihik-tx-qaw-ear) Serial Number [id number] Battery Size Capitola Ion Rechargeable Capitola Ion Rechargeable Coupling 0 MP Flatcar Whacker Silicone canal lock micromold 0MP general ii farmworker Silicone canal lock micromold Phone iPhone and Smart 3D naga Warranty Date 05/29/2024 05/29/2024 Accessory Information Serial Number End of Warranty Date Multi reuben: fit 03/03/2022 Mrs. Amin has obtained hearing aid services at [facility] and [facility]. Today she reported that she is not hearing well with her hearing aids, reporting that they are useless, noting that she feels there is a lot of distortion in the hearing aids. She noted difficulty hearing in crowds, in restaurants, and at family gatherings. I reminded her that she had expressed satisfaction with the hearing aids in the office during her last appointment, however, she stated that the real-world is not like the office and what works in the office is not what works outside the office. I also recommended that she use her mini microphone in noisy environments. OBJECTIVE Otoscopy showed ears clear of cerumen. ASSESSMENT/PLAN Hearing aid listening check and visual inspection showed satisfactory function. Due to her continued reports of distortion, I recommended that the hearing aids be repaired sequentially prior to warranty expiration. She would like to have the aids repaired now and start with the right hearing aid first and then the left. She will be contacted to pickers material handlers the right aid after receipt and to drop off the left aid. #1 Loss Hearing Sensorineural Bilateral documented in this encounter Plan of Treatment Not on file documented as of this encounter Visit Diagnoses Diagnosis Loss Hearing Sensorineural Bilateral- Primary documented in this encounter Additional Health Concerns Assessment Noted Time PHQ-9 Depression Total Score: 9 03/03/20 22 9:31 AM CDT documented as of this encounter Care Teams Washer Cutter Relationship Specialty Start Date End Date Elsewhere, Pcp PCP - General Internal Medicine 02/08/24 documented as of this encounter
--- OUTSIDE RECORDS SUMMARY | 2024-05-23 14:17 | XMS_ITS | Encounter Summary ---
Author Organization [facility] Address [address] [place] [address] Care Team Providers Care Trial Court Judge Name Role Phone Elsewhere, Pcp Primary Care Provider Unavailabl e Encounter Details Date Type Department Care Team (Latest Contact Info) Description 02/14/2024 11:00 AM CDT Ancillary Procedure Department of Ophthalmology in [place], [place] [address] [place] [address] Aimee Saldana M.D. [address] [place] [address] Other Visual Disturbances Social History Tobacco Use [...] often do you attend chur ch or christianity services? More than 4 times per year 12/05/2021 Do you belong to any clubs o r organizations such as zoroastrianism groups, unions, fraternal or athletic groups, or [...] Answer Date Recorded PHQ-2 Score 1 03/03/2022 [facility] Occupat ional Health - Occupational Stress [...] Procedure Name Priority Date/Time Associated Diagnosis Comments AUTOMATED VF - EXTENDED - OU - BOTH EYES Routine 02/14/2024 10:50 AM CDT Other Visual Disturbances documented in this encounter Results * Automated VF - Extended - OU - Both Eyes (02/14/2024 10:50 AM CDT) Narrative OPHTHALMOLOGY IMAGING EXAM - 02/15/2024 12:40 PM CDT Right Eye Automated visual field device used was Zeiss. Strategy was SHAWNA. Threshold was 24-2. Eyelid was untaped. Mean deviation was -1.88 decibels. Pattern standard deviation (PSD) was 1.74 decibels. Left Eye Automated visual field device used was Zeiss. Strategy was SHAWNA. Threshold was 24-2. Eyelid was untaped. Mean deviation was -2.66 decibels. Pattern standard deviation (PSD) was 2.08 decibels. Notes See note. Aimee Saldana M.D. OPHTH VISUAL FIELD Final Result OPHTHALMOLOGY IMAGING EXAM documented in this encounter Visit Diagnoses Diagnosis Other Visual Disturbances documented in this encounter Additional Health Concerns Assessment Noted Time PHQ-9 Depression Total Score: 9 03/03/20 22 9:31 AM CDT documented as of this encounter Care Teams Trial Court Judge Relationship Specialty Start Date End Date Elsewhere, Pcp PCP - General Internal Medicine 02/08/24 documented as of this encounter
--- OUTSIDE RECORDS SUMMARY | 2024-05-23 14:17 | XMS_ITS | Encounter Summary ---
Author Organization [facility] Address [address] [place] [address] Care Team Providers Care Wildlife Refuge Specialist Name Role Phone Elsewhere, Pcp Primary Care Provider Unavailabl e Encounter Details Date Type Department Care Team (Late st Contact Info) Description 02/14/2024 Ancillary Procedure Department of Ophthalmology Social History [...] week 12/05/2021 How often do you attend [facility] or mu-ism services? More than 4 times per year 12/05/2021 Do you belong to any clubs o r organizations such as anabaptism groups, unions, fraternal or athletic groups, or [...] Answer Date Recorded PHQ-2 Score 1 03/03/2022 [facility] Occupat ional Health - Occupational Stress [...] place to sleep or slept in a care home (including now)? No 12/05/2021 Depression Answer [...] Diagnosis Comments OPHTHALMOLOGY IMAGE EXAM Routine 02/14/2024 12:00 AM CDT documented in this encounter Results * Eyes Color-Ophthalmology Image Exam (02/14/2024 12:00 AM CDT) Narrative [facility] - 02/14/2024 1:39 PM CDT This order has been created [...] documented as of this encounter Care Teams Wildlife Refuge Specialist Relationship Specialty Start Date End Date Elsewhere, Pcp PCP - General Internal Medicine 02/08/24 documented as of this encounter
--- OUTSIDE RECORDS SUMMARY | 2024-05-23 14:17 | XMS_ITS | Encounter Summary ---
Author Organization [facility] Address [address] [place] [address] Care Team Providers Care Crm Architect Name Role Phone Elsewhere, Pcp Primary Care Provider Unavailabl e Encounter Details Date Type Department Care Team (Late st Contact Info) Description 02/14/2024 Orders Only Department of Ophthalmology in [place], [place] [address] [place] [address] Aimee Saldana M.D. [address] [place] [address] Social History Tobacco Use Types Packs/Day Years [...] 12/05/2021 How often do you attend chur or jehovah's witness services? More than 4 [...] Answer Date Recorded PHQ-2 Score 1 03/03/2022 [facility] - Occupational Stress Questionnaire Answer Date Recorded [...] documented as of this encounter Visit Diagnoses Not on filedocumented in this encounter Additional Health Concerns Assessment Noted Time PHQ-9 Depression Total Score: 9 03/03/20 9:31 AM CDT documented as of this encounter Care Teams Crm Architect Relationship Specialty Start Date End Date Elsewhere, Pcp PCP - General Internal Medicine 02/08/24 documented as of this encounter
--- OUTSIDE RECORDS SUMMARY | 2024-05-23 14:17 | XMS_ITS | Encounter Summary ---
Author Organization [facility] Address [address] [place] [address] Care Team Providers Care Convention Manager Name Role Phone Elsewhere, Pcp Primary Care Provider Unavailabl e Encounter Details Date Type Department Care Team (Latest Contact Info) Description 02/14/2024 12:45 PM CDT Ancillary Procedure Department of Ophthalmology in [place], [place] [address] [place] [address] Aimee Saldana M.D. [address] [place] [address] Other Visual Disturbances Social History Tobacco Use [...] often do you attend chur ch or pentecostal services? More than 4 times per year 12/05/2021 Do you belong to any clubs o r organizations such as protestant groups, unions, fraternal or athletic groups, or [...] Date Recorded PHQ-2 Score 1 03/03/2022 [facility] Occupat ional Health - [...] place to sleep or slept in a prison (including now)? No 12/05/2021 Depression Answer Date [...] Procedure Name Priority Date/Time Associated Diagnosis Comments OPTICAL COHERENCE TOMOGRAPHY (OCT) - OPTIC NERVE - OU - BOTH EYES Routine 02/14/2024 2:58 PM CDT Other Visual Disturbances documented in this encounter Results * Optical Coherence Tomography - Optic Nerve - OU - Both Eyes (02/14/2024 2:58 PM CDT) Narrative OPHTHALMOLOGY IMAGING EXAM - 02/15/2024 12:39 PM CDT OCT device used was Cirrus . Right Eye It was a technically difficult scan. Average RNFL was 78.00 microns. Ganglion cell layer was 72.00 microns. Left Eye It was a technically difficult scan. Average RNFL was 72.00 microns. Ganglion cell layer was 64.00 microns. Notes JULIO See note. us Aimee Saldana M.D. OPHTH TOMOGRAPHY Final Re sult OPHTHALMOLOGY IMAGING EXAM documented in this encounter Visit Diagnoses Diagnosis Other Visual Disturbances documented in this encounter Additional Health Concerns Assessment Noted Time PHQ-9 Depression Total Score: 9 03/03/ 22 9:31 AM CDT documented as of this encounter Care Teams Convention Manager Relationship Specialty Start Date End Date Elsewhere, Pcp PCP - General Internal Medicine 02/08/24 documented as of this encounter
--- OUTSIDE RECORDS SUMMARY | 2024-05-23 14:17 | XMS_ITS | Encounter Summary ---
Author Organization [facility] Address [address] [place] [address] Care Team Providers Care Human Resources Communications Manager Name Role Phone Elsewhere, Pcp Primary Care Provider Unavailabl e Reason for Referral * Outpatient (Routine) - Closed Specialty Diagnoses / Procedures Referred By Contlola t Referred To Contact Neurology Diagnoses Pain Head Neema Koenig M.D. Phone: tel: fax: [facility] Referral ID Status Reason Start Date Expiration Date Visits Re quested Visits Authorized [id number] Closed 11/23/2017 05/22/2018 1 1 Encounter Details Date Type Department Care Team (Late st Contact Info) Description 11/23/2017 [facility] [address] [place] [address] Neema Koenig M.D. [address] [place] [address] Pain Head (Primary Dx) Social History Tobacco Use Types Packs/Day Years Used Date Smoking Tobacco: Never Comments Unknown Sex and Gender Information Value Date Recorded [...] Pain Head- Primary documented in this encounter Care Teams Human Resources Communications Manager Relationship Specialty Start Date End Date Elsewhere, Pcp PCP - General Internal Medicine 02/08/24 documented as of this encounter
--- OUTSIDE RECORDS SUMMARY | 2024-05-23 14:17 | XMS_ITS | Encounter Summary ---
Author Organization [facility] Address [address] [place] [address] Care Team Providers Care Process Developer Name Role Phone Elsewhere, Pcp Primary Care Provider Unavailabl e Reason for Visit * Appointment Request (Routine) - Closed Specialty Diagnoses / Procedures Referred By Karla t Referred To Contact Ophthalmology Diagnoses Giant Cell Arteritis Personal History Ophthalmoplegic Migraine Intractable Eye Examination Abnormal Disturbance Visual Rocío Cunningham M.D. [address] [place] [address] Phone: tel: fax: Referral ID Status Reason Start Date Expiration Date Visits Re quested Visits Authorized [id number] Closed 10/31/2023 10/30/2024 1 1 Encounter Details Date Type Department Care Team (Latest Contact Info) Description 02/14/2024 1:45 PM CDT Comprehensive Visit Department of Ophthalmology in [place], [place] [address] [place] [address] Aimee Saldana M.D. [address] [place] [id number] Other Visual Disturbances (Primary Dx) Social History Tobacco Use Types [...] Answer Date Recorded PHQ-2 Score 1 03/03/2022 [facility] - Occupational Stress [...] place to sleep or slept in a [place] [facility] [place] facility (including now)? No 12/05/2021 Depression Answer Date [...] as of this encounter Progress Notes * Aimee Saldana M.D. - 02/14/2024 1:45 PM CDT ASSESSMENT / PLAN #1 Visual disturbances affecting either eye; episodic - present for past 20 years - most consistentwith visual auras She has a history of multiple years of episodic positive visual phenomena, semiology of which is unchanged, though increased frequency over the years. Lasts 15 minutes. Can affect either eye or both eyes together and not side- locked. No recent history of transient vision loss. No GCA sxs. Visual acuity is 20/20 right eye, 20/25 left eye with full color plates. Visual files with nonspecific scatter but overall full. No optic disc pallor. OCT shows superior rNFL thinning both eyes. MRI brain in 09/2023 showed no clear structural etiology for her episodic visual symptoms. MRI orbits have been planned locally. Symptoms are most consistent with visual auras given reassuring neuro-ophthalmic exam and lack of vision loss history. #2 Constant visual blurring/distortion right eye, post cataract surgery We will request MRI orbits with contrast to ensure no structural cause. 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 ([facility]; [facility]) for visual disturbances. She is followed by ophthalmology (Dr. Cunningham) for glaucoma. There has been concern about blurred vision dating back to at least [phone], post cataract surgery. Post op, her left eye has felt off, felt that it has not been in sync. Previously, she had Monovision Post op, it feels like her left eye is blurry, almost like a grid, with some areas that are better or worse and some pieces missing. It is constant, but waxes and wanes. She feels nauseated when it is bad. Over time, she feels that has been worsening. She notices this while driving, or when looking at the eye chart. She wonders if it may be related to depth perception issues. For the last 20 years, she has been experiencing ocular migraines. She describes jagged, scintillating scotoma, often white and blue, usually in the temporal vision or nasal vision, sometimes present in one eye or both eyes. It has happened individually on the right or left eye, though right eye is more common. Episodes typically last 15-20 minutes. Typically this occurs once every 2 months, whereas previously she would go years before having one. Episodes do not have associated headache, no other neurological symptoms. No clear triggers, though stress may play a role as she has been more stressed regarding her poor hearing. The last two years she has been quite photophobic. No eye pain, no diplopia, no other flashing. Shehas had some new floaters, though near baseline. Unfortunately, in 09/2023, she had some speech slurring and was found to be hypertensive. She was found to have a left parietal infarct. She has also had some difficulties with brain fog, dizziness, and hearing post COVID and in the setting of prior concussions. No headaches. No jaw claudication. No proximal muscle weakness. 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 Cunningham: Glaucoma suspect OD > OD. Using Timolol OS bid. Vision has been blurred xmonths. Has been doing eye exercises through [facility]; seems to have helped. Hard to sustain focus. Also recommended blue lens filter. Was part of COVID program at [facility]; thinks possibly isn???t processing vision and hearing since infection. EXAM: Vision with refraction 20/20-2 OU; PERRL, no APD; Ishihara 14/14/; FTFC OU; SLE OU - MGD, pcIOL with trace wrinkling of left capsule; DFE OU - C/D 0.6, discs pink/sharp, right inferotemporal choroidal nevus and asteroid hyalsosis inferiorly in periphery with Whitehead ring, remainder normal. OCT OPTIC NERVE: Right borderline (stable), Left thin (stable). OCT MACULA: Within normal limits both eyes. HVF: Right - within normal limits; Left - patchy inferior defect (fluctuates). DIAGNOSIS/PLAN: 1. Regular astigmatism, bilateral. Was given a prescription for spectacles and can update as desired. 2. Benign neoplasm of right choroid. Stable. Schedule follow-up with Dr. Fountain. 3. Other subjective visual disturbances. Existing condition, visual disturbance, trouble focusing eyes t ogether, especially when moving/walking, possibly related to long COVID. No strabismus. Has seen neuro. Getting better with PT and blue filters on lenses. Continue PT prn. Call if worse. 04.14.23 Dr. Cunningham: Still bothered by bright lights. Tinted glasses help. Has had more episodes of flashing/shimmering lights (thinks just OD) off to temporal side. Usually last 15-20 minutes. Hashad for years but increased frequency now maybe 6-9 episodes since heart surgery (aortic valve replacement ). Automation Manager and surgeon aware. Eyes itch off and on - emycin helps. Using AT qhs. No mattering or watering. No associated N/W/T/D/D but continues to have episodes of dizziness, especially when she turns head. [facility], worked with Julianna Davenport after concussion, still feels like she has COVID brain. No H, ST/CELINE/fever/diplopia/amaurosis/myalgias but chronic decrease in appetite. EXAM: Vision with refraction 20/20-2 OU; PERRL, no APD; Ishihara 14/14/; FTFC OU; SLE OU - MGD, pcIOL with trace wrinkling of left capsule with mild peripheral PCO; DFE OU - C/D 0.55, discs pink/sharp, right inferotemporal choroidal nevus and asteroid hyalosis inferiorly in periphery with Whitehead ring, remainder normal. DIAGNOSIS/PLAN: 1. Primary open-angle glaucoma left eye mild stage. OCT RNFL right wnl (stable), left thin (stable). OCT Macula within normal limits both eyes. HVF within normal limits both eyes. Continue timolol OS bid. Re-evaluate in 6 months with DFE and HVF OU. 2. Visual discomfort bilateral. Subjective complaint of photophobia with history of concussion, improved, doing well with tinted lensbut still symptomatic. Continue to monitor. 3. Benign neoplasm of right choroid. 4. Other subjective visual disturbances. Symptoms consistent with scintillating scotoma, longstanding migraine aura, but increased frequency since aortic valve replacement. Has discuss with certified medical technician assistant and surgeon, davi de la garza given, no other symptoms of recurrent temporal arteritis (presented with KNIGHT in the past). Advised to alternately cover each eye to determine if monocular or binocular. To ER if symptoms greater than one hour or other neuro symptoms. Patient will discuss with Dr. Barillas next week. 10.03.23 CTA Head/Neck w/wo contrast: 1. No acute intracranial abnormality. 2. Scattered atherosclerotic changes in the head and neck without flow-limiting stenosis, aneurysm, or other acute vascular abnormality. 3. Ascending aortic aneurysm measuring 4.7 cm. 10.03.23 MRI Brain without contrast: Small acute nonhemorrhagic infarct in the deep white matter of the left parietal lobe. 11.08.[address] Cunningham: Feels like eyes are ???not working well together.?? No diplopia, doesn???t see better if she closes either eye. Occasionally when she looks at her pin bedroom wall, looks white out of OS but always pink OD. Sometimes notices a blind-spot in visio OS. Notices it is dif ficult to adjust between two distances, like when looking at her phone for awhile and then looking up in the distance, feels off. Worse when in a moving car but sometimes when sitting in her chair athome. No having as much dizziness when she rolls over in bed. Has not been doing her eye exercises for a while. No KNIGHT/jaw claudication/scalp tenderness/amaurosis/diplopia/fever/anorexia/myalgias. Recent ESR was normal and normal in ED . Still has photophobia with fluorescent lighting, wearing tinted glasses or sunglasses help. Sunlight seems okay. Continues to have episodes of zig-zagged flashes that last for 15-20 minutes. Usually see???s flashes in OD, but sometime it is in both eyes. Occurring sporadically, happening about once a month. Much less frequently than after aortic valve rep lacement. Occ floaters, not bothersome. In September 2023 was taken to ED in [place], because he was not feeling well, BP was high and she felt her eyes were not working - could see but ???eyes wouldn???t let her do a puzzle.?? in ED was noted to slur her speech and was diagnosed with ???small stroke?? on MRI (). Started on ASA, add???l BP meds and recommended neuro-ophth follow- up. Patient would like to pursue at [facility]. Saw Dr. Spencer earlier this month regarding choroidal nevus OD and flashes. Told nevus stable, no retinal tears. BP has been harder to control (SBP 200s). Adjusted medications and now down (130s). EXAM: Vision with correction right 20/20-2, left 20/20-1; PERRL, no APD; Ishihara 14/14 OU; IOP 16/19; SLE OU - MGD, pcIOL with trace wrinkling of left capsule with mild peripheral PCO; DFE OU - C/D 0.55, discs pink/sharp, right inferotemporal choroidal nevus and asteroid hyalosis inferiorly in periphery with Whitehead ring, small nevus nasally in periphery and Whitehead ring with clear anterior vitreous. DIAGNOSIS/PLAN: 1. Primary open-angle glaucoma left eye. 2. Benign neoplasm of right choroid. 3. Regular astigmatism bilateral. 4. Other visual disturbances. Difficulty with eyes ???working together?? since her concussion (). Also issues with dizziness, hearing loss and vision feeling funny while waking since COVID . No diplopia, but some difficulty when looking in distance after reading or looking at phone. Had improved in the past with OT at [facility] (2021). Also bothered by photophobia since concussion . : Went to ED in [place] for high BP and changes in vision (could see but couldn???t do a puzzle), jerryhn patient was at hospital noted to have slurred speech. ISRAEL revealed ???small stroke.?? Still on warfarin and ASA. Neuro-Ophth consultation recommended. Patient prefers to complete this at [facility]. Recommend resuming eye exercises, helped in past, was advised to continue but hasn???t done them for awhile. Continue tinted lens prn. 5. Migraine with aura, no intractable. 6. Visual discomfort bilateral. 02.14.2024 24-2 Mcadams visual field: mild inferior scatter both eyes left more prominent than right 02.14.2024 Fundus photos: peripapillary atrophy both eyes 02.14.2024 OCT RNFL 78/72, mild superior thinning bilaterally, GCC thinning L>R documented in this encounter Plan of Treatment Not on file documented as of this encounter Visit Diagnoses Diagnosis Other Visual Disturbances- Primary documented in this encounter Additional Health Concerns Assessment Noted Time PHQ-9 Depression Total Score: 9 03/03/20 22 9:31 AM CDT documented as of this encounter Care Teams Process Developer Relationship Specialty Start Date End Date Elsewhere, Pcp PCP - General Internal Medicine 02/08/24 documented as of this encounter
--- OUTSIDE RECORDS SUMMARY | 2024-05-23 14:18 | XMS_ITS | Referral Summary ---
Author Organization [facility] Address [address] [place] [address] Care Team Providers Care Alligator Hunter Name Role Phone Megan Dong MD Unavailable Estephania Lozano AuD Unavailable Neema Koenig MD Primary Care Provider Val Broderick AuD Unavailable [phone] Lakia Romero AuD Unavailable [phone] Megan Dong MD Unavailable Allergies Active Allergy Reactions Criticality Noted Date Comments Lidocaine Other (See Comments) High 2016 Other reaction(s): Other (see comments) Shakey Shakey Sulfa Antibiotics Dizziness,Other (See Comments),Rash Low 07/23/2005 Sleepy Sleepy Medications amLODIPine (NORVASC) 2.5 MG tablet Take 2.5 mg by mouth At Bedtime 06/15/2022 Active vitamin C (ASCORBIC ACID) 500 MG tablet Take 500 mg by mouth daily Active Calcium Carb-Cholecalci ferol 500-10 MG-MCG TABS Take 1 tablet by [...] School Help Needed Not on file 04/08 Comments Unknown Sex and Gender Information Value Date Recorded Sex Assigned at Not on file Legal Sex Female 5:53 PM CDT Gender Identity Not on file Sexual Orientation [...] - Plan of Treatment Not on file Insurance UCARE MEDICARE Care Teams Alligator Hunter Relationship Specialty Start Date End Date Neema Koenig MD [facility] [address] [place] [address] PCP - General Internal Medicine 07/19/22 Megan Dong MD [address] [place] [address] [address] [place] [address] Otolaryngology 07/06/22 Estephania Lozano AuD [address] [place] [phone] Supervisor Audiology 07/06/22 Val Broderick AuD [address] [place] [phone] Supervisor Audiology 07/19/22 Lakia Romero AuD [address] [place] [phone] Supervisor Audiology 09/26/22 Megan Dong MD [address] [place] [phone] Assigned Surgical Provider 12/10/22
--- OUTSIDE RECORDS SUMMARY | 2024-05-23 14:18 | XMS_ITS | Clinical Summary ---
Author Organization [facility] Address [address] [place] [address] Care Team Providers Care Dietary Internship Name Role Phone Megan Dong MD Unavailable [phone] Estephania Lozano AuD Unavailable Neema Koenig MD Primary Care Provider Val Broderick AuD Unavailable [phone] Lakia Romero AuD Unavailable [phone] Megan Dong MD Unavailable Allergies Active Allergy [...] 1937 ANNUAL REVIEW OF HM ORDERS 1937 DEXA 1937 LIPID 1937 ZOSTER IMMUNIZATION (1 of 2) 12/24/1987 FALL RISK ASSESSMENT 2002 MEDICARE ANNUAL WELLNESS VISIT 2002 Pneumococcal Vaccine: 65+ Years (1 of 1 - PCV) 2002 RSV VACCINE (1 - 1-dose 75+ series) 2012 PHQ-2 (once per calendar year) 2023 11/29/2022 COVID-19 Vaccine ( - season) 2024 03/08/2022, 04/20/2021, 09/12/2020, Additional history exists INFLUENZA VACCINE (#1) 2024 , 05/02/2021, 06/29/2020, Additional history exists DTAP/TDAP/TD IMMUNIZATION (2 - Td or Tdap) 04/23/2031 04/23/2021 HPV IMMUNIZATION Aged Out No longer e ligible based on patient's age to complete this topic MENINGITIS IMMUNIZATION Aged Out No l onger eligible based on patient's age to complete this topic RSV MONOCLONAL ANTIBODY Aged Out No l onger eligible based on patient's age to complete this topic Insurance UCARE MEDICARE Care Teams Dietary Internship Relationship Specialty Start Date End Date Neema Koenig MD [facility] [address] [place] [address] PCP - General Internal Medicine 07/19/22 Megan Dong MD [address] [place] [phone] Otolaryngology 07/06/22 Estephania Lozano AuD [address] [place] [phone] Guide Tour Audiology 07/06/22 Val Broderick AuD [address] [place] [phone] Guide Tour Audiology 07/19/22 Lakia Romero AuD [address] [place] [address] Guide Tour Audiology 09/26/22 Megan Dong MD [address] [place] [address] [phone] Assigned Surgical Provider 12/10/22
== END 2024-05-23 14:14 | disposition home or self-care (01) ==
PROVIDERS: PCP Internal Medicine; Visit Provider Internal Medicine
DX: R53.81 Other malaise (principal); R53.83 Other fatigue; I10 Essential (primary) hypertension; Z13.29 Encounter for screening for other suspected endocrine disorder; Z13.0 Encounter for screening for diseases of the blood and blood-forming organs and certain disorders involving the immune mechanism
CPT/HCPCS: 80053; 82550; 82728; 84443

== ENCOUNTER 2024-06-18 15:25 | Outpatient (CLI) | payer MEDICARE, SELFPAY ==
--- OUTSIDE RECORDS SUMMARY | 2024-06-22 17:41 | XMS_ITS | Encounter Summary ---
Author Organization [facility] Address [address] [place] [address] Care Team Providers Care Core Man Name Role Phone Elsewhere, Pcp Primary Care Provider Unavailabl e Encounter Details Date Type Department Care Team (Latest Contact Info) Description 06/18/2024 10:00 AM WATER JET OPERATOR Diagnostic Department of Otorhinolaryngology in [place], [place] [address] [place] [address] Marisabel Casas Au.D., M.A. [address] [place] [phone] Loss Hearing Sensorineural Bilateral (Primary Dx) Social [...] often do you attend chur ch or evangelical services? More than 4 times per year 12/05/2021 Do you belong to any clubs o r organizations such as bahai groups, unions, fraternal or athletic groups, or [...] Answer Date Recorded PHQ-2 Score 1 03/03/[facility]22 [facility] Questionnaire Answer [...] as of this encounter Progress Notes * Marisabel Casas Au.D., M.A. - 06/18/2024 10:00 AM CST SUBJECTIVE CHIEF COMPLAINT/REASON FOR VISIT Hearing aid follow-up HISTORY Shannen Amin is a 88 y.o. adult with bilateral sensorineural hearing loss. A recent outside audiogram on 04/03/2024 shows moderately severe to severe sensorineural hearing loss in the left ear and severe to profound sensorineural hearing loss in the right ear. She uses the following devices she obtained at [employer]: Hearing Aid Information Left Right Awake Overnight Monitor ReSound ReSound Model One 961 ([id number]) One 961 ([id number]) Style RITE (zxhpqehq-es-pfd-ear) RITE (vpiioklu-xt-fqs-ear) Serial Number [id number] Battery Size Dry Prong Ion Rechargeable Dry Prong Ion Rechargeable Coupling 1MP guide, silicone canal lock micromold [id number] 0MP guide, silicone canal lock micromold [id number] Warranty Date 05/29/2024 05/29/2024 Connectivity Paired to [employer]aga Accessory Information Serial Number End of Warranty Date [employer] 05/29/2024 [employer] [id number] 03/10/2023 ASSESSMENT/PLAN Ms. Amin noted that she has found the changes made at the last visit to be too loud for her. Today we opted to reprogram her devices with lowered compression ratios and less mid to high frequency gain. She noted improvement here in the office. We also reviewed use of the naga and encouraged the patient to consider making smaller changes, suchas 1-2 steps at a time. Follow-up in 6-12 months for routine hearing aid check is recommended. She is waiting to hear back from the cochlear implant team regarding possible scheduling of an evaluation. #1 Loss Hearing Sensorineural Bilateral R JET OPERATOR documented in this encounter Plan of Treatment Upcoming Encounters Date Type Department Care Team (Latest Contact Info) Description 09/12/2024 9:00 AM WATER JET OPERATOR Diagnostic Department of Otorhinolaryngology in [place], [place] [address] [place] [address] Salud Bush Au.D., M.A. [address] [place] [address] 09/12/2024 1:00 PM WATER JET OPERATOR Comprehensive Visit Department of Otorhinolaryngology in [place], [place] [address] [place] [phone] Estevan Mata M.D. [address] [place] [address] documented as of this encounter Visit Diagnoses Diagnosis Loss Hearing Sensorineural Bilateral- Primary documented in this encounter Additional Health Concerns Assessment Noted Time PHQ-9 Depression Total Score: 9 03/03/20 22 9:31 AM CDT documented as of this encounter Care Teams Core Man Relationship Specialty Start Date End Date Elsewhere, Pcp PCP - General Internal Medicine 02/08/24 documented as of this encounter
--- OUTSIDE RECORDS SUMMARY | 2024-06-22 17:41 | XMS_ITS | Referral Summary ---
Author Organization [facility] Address [address] [place] [address] Care Team Providers Care Agronomy Advisor Name Role Phone Elsewhere, Pcp Primary Care Provider Unavailabl e Source Comments Patient records contain information from all sites at [facility]. For routine questions regarding patient records, call [phone] during business hours, M-F 8:00 AM - 5:00 PM Central Time. Record requests for emergency care only can be directed to [phone] at any time.[facility] Encounters Date Type Department Care Team Description 06/18/2024 10:00 AM POWER PLANT OPERATORS SUPERVISOR Diagnostic Department of Otorhinolaryngology in [place], [place] [address] [place] [address] Marisabel Casas Au.D., M.A. Loss Hearing Sensorineural Bilateral (Primary Dx) 05/29/2024 3:30 PM POWER PLANT OPERATORS SUPERVISOR Diagnostic Department of Otorhinolaryngology in [place], [place] [address] [place] [address] Sadaf Solares Au.D. Loss Hearing Sensorineural Bilateral (Primary Dx) 04/12/2024 10:00 AM CDT Diagnostic Department of Otorhinolaryngology in [place], [place] [address] [place] [phone] Titi Villa Au.D., C.C.C.-A Loss Hearing Sensorineural Bilateral (Primary Dx) from [...] week 12/05/2021 How often do you attend [facility] or gnosticism services? More than 4 times per year 12/05/2021 Do you belong to any clubs o r organizations such as faith groups, unions, fraternal or athletic groups, or [...] Answer Date Recorded PHQ-2 Score 1 03/03/2022 [facility] of Occupat ional Health - Occupational Stress [...] place to sleep or slept in a nursing home (including now)? No 12/05/2021 Depression Answer [...] 75 12/06/2021 10:04 AM CDT Temperature 36.6 C (97.9 F) 08/06/2019 2:56 PM POWER PLANT OPERATORS SUPERVISOR Respiratory Rate 16 08/06/2019 2:56 PM POWER PLANT OPERATORS SUPERVISOR Oxygen Saturation 99% 08/06/2019 3:22 PM POWER PLANT OPERATORS SUPERVISOR Inhaled Oxygen Concentration - - Weight 51.2 kg (112 lb 14 oz) 12/06/2021 10:04 A M CDT Height 157.1 cm (5' 1.85) 12/06/2021 10:04 AM C DT Body Mass Index 20.75 12/06/2021 10:04 AM CDT Plan of Treatment Upcoming Encounters Date Type Department Care Team (Latest Contact Info) Description 09/12/2024 9:00 AM POWER PLANT OPERATORS SUPERVISOR Diagnostic Department of Otorhinolaryngology in [place], [place] [address] [place] [address] Salud Bush Au.D., M.A. [address] [place] [phone] 09/12/2024 1:00 PM POWER PLANT OPERATORS SUPERVISOR Comprehensive Visit Department of Otorhinolaryngology in [place], [place] [address] [place] [phone] Estevan Mata M.D. [address] [place] [phone] Medical Devices Implanted Type Area Postal Support Employee Device Identifier Shelf Expiration Date Model / Serial / Lot Ocular Lens Ocular Lens Eye Procedures Procedure Name Priority Date/Time Associated Diagnosis Comments COMPREHENSIVE METABOLIC PANEL, S/P Routine 12/06/2021 9:26 AM CDT Personal History Of Infectious And Parasitic Disease (COVID-19) from Last 3 Months or Most Recently Relevant to Health Maintenance Results * Comprehensive Metabolic Panel (12/06/2021 9:26 AM CDT) Pathologist Prince Potassium, S 4.4 3.6 - 5.2 mmol/L [...] M.D. LAB BLOOD ADD-ON Final Resul t [facility] [address] [place] [address], [facility] DTL [facility] [address] [place] [address] from Last 3 Months or Most Recently Relevant to Health Maintenance Insurance [facility] Care Teams Agronomy Advisor Relationship Specialty Start Date End Date Elsewhere, Pcp PCP - General Internal Medicine 02/08/24
--- OUTSIDE RECORDS SUMMARY | 2024-06-22 17:41 | XMS_ITS | Clinical Summary ---
Author Organization [facility] Address [address] [place] [address] Care Team Providers Care Box Repairer Name Role Phone Elsewhere, Pcp Primary Care Provider Unavailabl e Source Comments Patient records contain information from all sites at [facility]. For routine questions regarding patient records, call [phone] during business hours, M-F 8:00 AM - 5:00 PM Central Time. Record requests for emergency care only can be directed to [phone] at any time.[facility] Allergies Active Allergy Reactions Criticality Noted Date [...] Department Care Team Description 06/18/2024 10:00 AM NEEDLE PUNCH OPERATOR Diagnostic Department of Otorhinolaryngology in [place], [place] [address] [place] [phone] Marisabel Casas Au.D., M.A. Loss Hearing Sensorineural Bilateral (Primary Dx) 05/29/2024 3:30 PM NEEDLE PUNCH OPERATOR Diagnostic Department of Otorhinolaryngology in [place], [place] [address] [place] [address] Sadaf Solares Au.D. Loss Hearing Sensorineural Bilateral (Primary Dx) 04/12/2024 10:00 AM CDT Diagnostic Department of Otorhinolaryngology in [place], [place] [address] [place] [address] Titi Villa Au.D., C.C.C.-A Loss Hearing Sensorineural [...] week 12/05/2021 How often do you attend [facility] or moravian services? More than 4 times per year 12/05/2021 Do you belong to any clubs o r organizations such as sabianist groups, unions, fraternal or athletic groups, or [...] Answer Date Recorded PHQ-2 Score 1 03/03/2022 [facility] of Occupat ional Health - [...] place to sleep or slept in a residential (including now)? No 12/05/2021 Depression Answer Date [...] 36.6 C (97.9 F) 08/06/2019 2:56 PM NEEDLE PUNCH OPERATOR Respiratory Rate 16 08/06/2019 2:56 PM NEEDLE PUNCH OPERATOR Oxygen Saturation 99% 08/06/2019 3:22 PM NEEDLE PUNCH OPERATOR Inhaled Oxygen Concentration - - Weight 51.2 kg (112 lb 14 oz) 12/06/2021 10:04 A M CDT Height 157.1 cm (5' 1.85) 12/06/2021 10:04 AM C DT Body Mass Index 20.75 12/06/2021 10:04 AM CDT Plan of Treatment Upcoming Encounters Date Type Department Care Team (Latest Contact Info) Description 09/12/2024 9:00 AM NEEDLE PUNCH OPERATOR Diagnostic Department of Otorhinolaryngology in [place], [place] [address] [place] [address] Salud Bush Au.D., M.A. [address] [place] [phone] 09/12/2024 1:00 PM NEEDLE PUNCH OPERATOR Comprehensive Visit Department of Otorhinolaryngology in [place], [place] [address] [place] [phone] Estevan Mata M.D. [address] [place] [phone] Health Maintenance Due Date Last Done Comments [...] Additional history exists Influenza Vaccine (#1) 2024 , 07/22/2021, 05/02/2021, Additional history exists Creatinine Level (Kidney Function Test) 12/27/2024 12/28/2023, 06/27/2023, 02/21/2023, Additional history exists DTaP,Tdap,and Td Vaccines (2 - Td or Tdap) 04/23/2031 04/23/2021 IPV Vaccines Aged Out No longer eligi ble based on patient's age to complete this topic Medical Devices Implanted Type Area Customer Supply Chain Analyst Device Identifier Shelf Expiration Date Model / [...] M.D. LAB BLOOD ADD-ON Final Resul t [facility] [address] [place] [address], [facility] DTL [facility] [address] [place] [address] from Last 3 Months or Most Recently Relevant to Health Maintenance Insurance [facility] Care Teams Box Repairer Relationship Specialty Start Date End Date Elsewhere, Pcp PCP - General Internal Medicine 02/08/24
--- OUTSIDE RECORDS SUMMARY | 2024-06-22 17:41 | XMS_ITS | Encounter Summary ---
Author Organization [facility] Address [address] [place] [address] Care Team Providers Care Acute Care Clinical Nurse Specialist Name Role Phone Elsewhere, Pcp Primary Care Provider Unavailabl e Reason for Referral * Outpatient (Routine) - Closed Specialty Diagnoses / Procedures Referred By Karla larson Referred To Contact Neurology Diagnoses Pain Head Neema Koenig M.D. Phone: tel: fax: [facility] Referral ID Status Reason Start Date Expiration Date Visits Re quested Visits Authorized [id number] Closed 11/23/2017 05/22/2018 1 1 Encounter Details Date Type Department Care Team (Late st Contact Info) Description 11/23/2017 [facility] [address] [place] [address] Neema Koenig M.D. [address] [place] [phone] Pain Head (Primary Dx) Social History Tobacco Use Types Packs/Day Years Used Date Smoking Tobacco: Never Comments Unknown Sex and Gender Information Value Date Recorded Sex Assigned at Not recorded on cert ificate 05/09/2022 8:33 AM CDT Legal Sex Female 8:35 AM CDT Gender Identity Female 01/02/2018 7:39 AM CDT Sexual Orientation Not on file documented as of this encounter Plan of Treatment Upcoming Encounters Date Type Department Care Team (Latest Contact Info) Description 09/12/2024 9:00 AM PANTRY ATTENDANT Diagnostic Department of Otorhinolaryngology in [place], [place] [address] [place] [address] Salud Bush Au.D., M.A. [address] [place] [phone] 09/12/2024 1:00 PM PANTRY ATTENDANT Comprehensive Visit Department of Otorhinolaryngology in [place], [place] [address] [place] [phone] Estevan Mata M.D. [address] [place] [phone] Scheduled Referrals Name Type Priority Associated Diagnoses Orde r Schedule Neurology Referral Outpatient Referral Routine Pain Head Expected: 11/23/2017 (Approximate), Expires: 11/23/2020 documented as of this encounter Visit Diagnoses Diagnosis Pain Head- Primary documented in this encounter Care Teams Acute Care Clinical Nurse Specialist Relationship Specialty Start Date End Date Elsewhere, Pcp PCP - General Internal Medicine 02/08/24 documented as of this encounter
--- OUTSIDE RECORDS SUMMARY | 2024-06-22 17:41 | XMS_ITS | Referral Summary ---
Author Organization [facility] Address [address] [place] [address] Care Team Providers Care Commissioning Specialist Name Role Phone Megan Dong MD Unavailable [phone] Estephania Lozano AuD Unavailable Neema Koenig MD Primary Care Provider [phone] Val Broderick AuD Unavailable [phone] Lakia Romero AuD Unavailable [phone] Allergies Active Allergy Reactions Criticality Noted Date [...] 66 11/29/2022 8:58 AM CDT Temperature 36.1 C (97 F) 11/29/2022 8:58 AM CDT Respiratory Rate - - Oxygen Saturation 97% 11/29/2022 8:58 AM CDT Inhaled Oxygen Concentration - - Weight 46.7 kg (103 lb) 11/29/2022 8:58 AM CDT Height - - Body Mass Index - - Plan of Treatment Not on file Insurance [facility] MEDICARE Care Teams Commissioning Specialist Relationship Specialty Start Date End Date Neema Koenig MD [facility] [address] [place] [address] PCP - General Internal Medicine 07/19/22 Megan Dong MD [address] [place] [address] Otolaryngology 07/06/22 Estephania Lozano AuD [address] [place] [phone] [facility] 07/06/22 Val Broderick AuD [address] [place] [address] [facility] 07/19/22 Lakia Romero AuD [address] [place] [address] [facility] 09/26/22
--- OUTSIDE RECORDS SUMMARY | 2024-06-22 17:41 | XMS_ITS | Encounter Summary ---
Author Organization [facility] Address [address] [place] [address] Care Team Providers Care Manager Cafe Name Role Phone Elsewhere, Pcp Primary Care Provider Unavailabl e Encounter Details Date Type Department Care Team (Latest Contact Info) Description 05/29/2024 3:30 PM AIRCRAFT DE ICER INSTALLER Diagnostic Department of Otorhinolaryngology in [place], [place] [address] [place] [address] Sadaf Solares Au.D. [address] [place] [address] Loss Hearing Sensorineural Bilateral (Primary Dx) Social [...] often do you attend chur ch or shinto services? More than 4 times per year 12/05/2021 Do you belong to any clubs o r organizations such as scientologist groups, unions, fraternal or athletic groups, or [...] Answer Date Recorded PHQ-2 Score 1 03/03/2022 [facility] of Occupat ional Health - Occupational [...] as of this encounter Progress Notes * Sadaf Solares Au.D. - 05/29/2024 3:30 PM CST SUBJECTIVE REFERRAL: self CHIEF COMPLAINT/REASON FOR VISIT Hearing aid follow-up Accompanied by her daughter, Matlida Amin is a 88 y.o. adult with bilateral sensorineural hearing loss. A recent outside audiogram on 04/03/2024 shows moderately severe to severe sensorineural hearing loss in the left ear and severe to profound sensorineural hearing loss in the right ear. She uses the following devices she obtained at [facility]: Hearing Aid Information Left Right Open Source Developer ReSound ReSound Model One 961 ([id number]) One 961 ([id number]-[id number]) Style RITE (mfnhskbh-dn-oel-ear) RITE (vfsfpuzm-jo-cqg-ear) Serial Number [id number] Battery Size [place] Ion Rechargeable [place] Ion Rechargeable Coupling 1MP shoe associate, silicone canal lock micromold SN:[id number] 0MP shoe associate, silicone canal lock micromold [id number] Warranty Date 05/29/2024 05/29/2024 Connectivity Paired to [employer] naga Accessory Information Serial Number End of Warranty Date Bingo Floater 05/29/2024 [employer] [id number] 03/10/2023 OBJECTIVE Otoscopic evaluation was performed and indicated clear ear canals bilaterally. Data logging indicated 13 hours of average daily use. ASSESSMENT/PLAN Aided real-ear probe microphone measures showed fair to good audibility when compared to NAL-NL2 targets for conversational speech inputs (55-65 dB SPL). Adjustments were made based on real-ear measures and Mrs. Amin's preferences today. She reports herhearing aids have been too loud lately, and after adjustments were completed today, she felt they were tolerable and would try the settings. She specifically requested to increase molina sounds (which I did with caution due to her sensitivity to loud sounds) and I also increased the mid- frequency gain, which she felt was more comfortable. She will continue using the naga to adjust as needed. We discussed considering a cochlear implant evaluation for the right ear. Her recent outside audiogram showed no word recognition in the right ear. Based on this, I assured her I would reach out to our cochlear implant team to schedule an evaluation. Follow-up in 6-12 months for routine hearing aid check is recommended. #1 Loss Hearing Sensorineural Bilateral RAFT DE ICER INSTALLER documented in this encounter Plan of Treatment Upcoming Encounters Date Type Department Care Team (Latest Contact Info) Description 09/12/2024 9:00 AM AIRCRAFT DE ICER INSTALLER Diagnostic Department of Otorhinolaryngology in [place], [place] [address] [place] [address] Salud Bush Au.D., M.A. [address] [place] [address] 09/12/2024 1:00 PM AIRCRAFT DE ICER INSTALLER Comprehensive Visit Department of Otorhinolaryngology in [place], [place] [address] [place] [address] Estevan Mata M.D. [address] [place] [address] documented as of this encounter Visit Diagnoses Diagnosis Loss Hearing Sensorineural Bilateral- Primary documented in this encounter Additional Health Concerns Assessment Noted Time PHQ-9 Depression Total Score: 9 03/03/20 22 9:31 AM CDT documented as of this encounter Care Teams Manager Cafe Relationship Specialty Start Date End Date Elsewhere, Pcp PCP - General Internal Medicine 02/08/24 documented as of this encounter
--- OUTSIDE RECORDS SUMMARY | 2024-06-22 17:41 | XMS_ITS | Encounter Summary ---
Author Organization [facility] Address [address] [place] [address] Care Team Providers Care Recreation Supervisor Name Role Phone Elsewhere, Pcp Primary Care Provider Unavailabl e Encounter Details Date Type Department Care Team (Latest Contact Info) Description 04/12/2024 10:00 AM CDT Diagnostic Department of Otorhinolaryngology in [place], [place] [address] [place] [address] Titi Villa Au.D., C.C.C.-A [address] [place] [address] Loss Hearing Sensorineural Bilateral (Primary Dx) Social [...] any clubs o r organizations such as orthodox groups, unions, fraternal or athletic groups, or [...] Answer Date Recorded PHQ-2 Score 1 03/03/2022 [facility] of Occupat ional Health - [...] encounter Progress Notes * Titi Villa Au.D., C.C.C.-A - 04/12/2024 10:00 AM CDT SUBJECTIVE REFERRAL: self CHIEF COMPLAINT/REASON FOR VISIT Hearing aid follow-up, accompanied by her daughter. HISTORY Shannen Amin is a 88 y.o. 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 Her last audiogram was completed at [facility] on 11/29/2022. She uses the following devices she obtained at [facility] untapt: Hearing Aid Information Left Right Matrix Bath Operator ReSound ReSound Model One 961 ([id number]) One 961 ([id number]) Style RITE (pmfwfumt-cg-npy-ear) RITE (omujcgwo-zc-gux-ear) Serial Number [id number] Battery Size Beir[place] Ion Rechargeable [place]irne Ion Rechargeable Coupling 1MP electronics engineer, silicone canal lock micromold SN:[id number] 0MP electronics engineer, silicone canal lock micromold [id number] Warranty Date 05/29/2024 05/29/2024 Connectivity Paired to [employer] naga Accessory Information Serial Number End of Warranty Date Furnace Reliner 05/29/2024 [employer] [id number] 03/10/2023 Ms. Amin's hearing aids were recently [...] (Latest Contact Info) Description 09/12/2024 9:00 AM CUPOLA HOIST OPERATOR Diagnostic Department of Otorhinolaryngology in [place], [place] [address] [place] [phone] Salud Bush Au.D., M.A. [address] [place] [phone] 09/12/2024 1:00 PM CUPOLA HOIST OPERATOR Comprehensive Visit Department of Otorhinolaryngology in [place], [place] [address] [place] [phone] Estevan Mata M.D. [address] [place] [address] documented as of this encounter Visit Diagnoses Diagnosis Loss Hearing Sensorineural Bilateral- Primary documented in this encounter Additional Health Concerns Assessment Noted Time PHQ-9 Depression Total Score: 9 03/03/20 22 9:31 AM CDT documented as of this encounter Care Teams Recreation Supervisor Relationship Specialty Start Date End Date Elsewhere, Pcp PCP - General Internal Medicine 02/08/24 documented as of this encounter
--- OUTSIDE RECORDS SUMMARY | 2024-06-22 17:41 | XMS_ITS | Clinical Summary ---
Author Organization [facility] Address [address] [place] [address] Care Team Providers Care Ambulette Driver Name Role Phone Megan Dong MD Unavailable [phone] Estephania Lozano AuD Unavailable Neema Koenig MD Primary Care Provider [phone] Val Broderick AuD Unavailable [phone] Lakia Romero AuD Unavailable [phone] Allergies Active Allergy Reactions Criticality Noted Date [...] calendar year) 2023 11/29/2022 COVID-19 Vaccine ( season) 2024 03/08/2022, 04/20/2021, 09/12/2020, Additional history [...] this topic Insurance [employer] MEDICARE Care Teams Ambulette Driver Relationship Specialty Start Date End Date Neema Koenig MD [facility] [address] [place] [address] PCP - General Internal Medicine 07/19/22 Megan Dong MD [address] [place] [address] [address] [place] [address] Otolaryngology 07/06/22 Estephania Lozano AuD [address] [place] [address] Assistant Technician Audiology 07/06/22 Val Broderick AuD [address] [place] [address] Assistant Technician Audiology 07/19/22 Lakia Romero AuD [address] [place] [phone] Assistant Technician Audiology 09/26/22
--- OUTSIDE RECORDS SUMMARY | 2024-06-22 17:41 | XMS_ITS | Encounter Summary ---
Author Organization [facility] Address [address] [place] [address] Care Team Providers Care Rn House Supervisor Name Role Phone Elsewhere, Pcp Primary Care Provider Unavailabl e Reason for Visit * Reason Comments Other Encounter Details Date Type Department Care Team (Latest Contact Info) Description 03/19/2024 2:00 PM CDT Diagnostic Department of Otorhinolaryngology in [place], [place] [address] [place] [address] Astrid Ellis, Ph.D. [address] [place] [address] Loss Hearing Sensorineural Bilateral (Primary Dx) Social [...] often do you attend chur ch or sabianism services? More than 4 times per year 12/05/2021 Do you belong to any clubs o r organizations such as samaritan groups, unions, fraternal or athletic groups, or [...] Answer Date Recorded PHQ-2 Score 1 03/03/2022 [facility] [...] was fit with binaural Resound One 961 pfnhniwh-jw-xhd-ear hearing aids by a family friend. She has struggled with speech clarity. She was fit with silicone micromolds here on 10/31/2022. Ms. Amin currently wears the following hearing aids that she obtained elsewhere: Hearing Aid Information Left Right Drum Builder ReSound ReSound Model [id number] Style RITE (lvuwxnge-yu-inc-ear) RITE (yclavfjc-th-mfc-ear) Serial Number [id number] Battery Size [place] Ion Rechargeable [place] Ion Rechargeable Coupling 0 MP Gasateria Attendant Silicone canal lock micromold 0MP director style Silicone canal lock micromold Phone iPhone and Smart 3D naga Warranty Date 05/29/2024 05/29/2024 Accessory Information Serial Number End of Warranty Date Multi reuben: fit 03/03/2022 Mrs. Amin has obtained hearing aid services at [facility] and [facility]. Today she reported that she is not [...] the left. She will be contacted to pick up truck driver the right aid after receipt and to drop off the left aid. #1 Loss Hearing Sensorineural Bilateral documented in this encounter Plan of Treatment Upcoming Encounters Date Type Department Care Team (Latest Contact Info) Description 09/12/2024 9:00 AM BEDSPRING ASSEMBLER Diagnostic Department of Otorhinolaryngology in [place], [place] [address] [place] [address] Salud Bush Au.D., M.A. [address] [place] [address] 09/12/2024 1:00 PM BEDSPRING ASSEMBLER Comprehensive Visit Department of Otorhinolaryngology in [place], [place] [address] [place] [phone] Estevan Mata M.D. [address] [place] [address] documented as of this encounter Visit Diagnoses Diagnosis Loss Hearing Sensorineural Bilateral- Primary documented in this encounter Additional Health Concerns Assessment Noted Time PHQ-9 Depression Total Score: 9 03/03/20 22 9:31 AM CDT documented as of this encounter Care Teams Rn House Supervisor Relationship Specialty Start Date End Date Elsewhere, Pcp PCP - General Internal Medicine 02/08/24 documented as of this encounter
--- OUTSIDE RECORDS SUMMARY | 2024-06-22 17:41 | XMS_ITS ---
Author Organization [facility] Address [address] [place] [address] Care Team Providers Care Director Of Financial Aid Name Role Phone Unavailable Unavailable Unavailable Surgery Details Not on file Complications Check Surgery Details section. Procedure Estimated Blood Loss Check Surgery Details section. Procedure Findings Check Surgery Details section. Procedure Specimens Taken Check Surgery Details section.
== END 2024-06-18 15:26 | disposition home or self-care (01) ==
LOC: NFLDREF 06-22 17:40
PROVIDERS: PCP Internal Medicine; Referring Provider Internal Medicine; Visit Provider Internal Medicine
DX: Z51.81 Encounter for therapeutic drug level monitoring (principal); Z79.01 Long term (current) use of anticoagulants; Z95.2 Presence of prosthetic heart valve
CPT/HCPCS: 85610

== ENCOUNTER 2024-09-06 08:46 | Emergency (ER) | payer MEDICARE, SELFPAY ==
[2024-09-06 08:53] VITALS: BP 126/62; PULSE 84; RESP 16; TEMP 36.5; O2SAT 98; BMI 21.2
--- NOTE | 2024-09-06 09:10 | ED.FEMALEGU ---
HPI - Female Genitourinary General Chief complaint: Urogenital Problems, Female Stated complaint: vag bleeding Time Seen by Provider: 09/06/24 09:03 History of Present Illness HPI Narrative: Patient is an 88-year-old woman who comes in today with urinary frequency and hematuria for the last 12 hours. She is anticoagulated with an INR most recently done approximately 2 months ago. Patient has had no fevers no chills no night sweats no abdominal pain no overt vaginal bleeding. She states that when she pees is virtually all blood. She has had no recent injuries. She has had no incontinence. No chest pain or shortness of breath. Patient is curious what is happening. She she wonders if she does have a urinary infection. Related Data Home Medications ?Medication ?Instructions ?Recorded ?Confirmed melatonin 3 mg capsule 3 - 6 mg PO HS PRN 02/28/22 05/23/24 timolol maleate 0.5 % eye drops 1 drp ophthalmic (eye) DAILY 08/19/22 05/23/24 aspirin 81 mg tablet,delayed 81 mg PO DAILY 11/06/23 05/23/24 release ascorbic acid (vitamin C) 500 mg 500 mg PO QDAY 11/14/23 05/23/24 tablet calcium 600 mg (as cap PO DAILY 11/14/23 05/23/24 carbonate)-vitamin D3 12.5 mcg (500 unit) capsule (Calcium with Vit D3) Previous Rx's ?Medication ?Instructions ?Recorded rosuvastatin 20 mg tablet 20 mg PO QDAY #90 tabs 11/14/23 losartan 50 mg tablet 50 mg PO BID #180 tabs 01/04/24 carvedilol 3.125 mg tablet 6.25 mg (2 x 3.125 mg) PO BID #360 01/08/24 tabs tramadol 50 mg tablet 50 mg PO BID PRN pain #7 tabs 05/23/24 warfarin 3 mg tablet 6 mg PO QDAY #180 tabs 06/19/24 amoxicillin 500 mg capsule 2,000 mg (4 x 500 mg) PO ONCE #4 08/16/24 caps ciprofloxacin HCl 250 mg tablet 250 mg PO BID #10 tabs 09/06/24 (Cipro) Allergies Allergy/AdvReac Type Severity Reaction Status Date / Time lidocaine Allergy Severe shaking Verified 04/15/24 09:49 Sulfa (Sulfonamide Allergy Unknown Unknown Verified 04/15/24 09:49 Antibiotics) Review of Systems Status of ROS: Reports: 10 or more systems reviewed and unremarkable except as noted in History and below PFSH [facility] Medical History History of aortic regurgitation ?Z86.79 - Personal history of other diseases of the circulatory system (ICD-10) History of diverticulitis ?Z87.19 - Personal history of other diseases of the digestive system (ICD-10) History of pulmonary embolism (2019) ?Z86.711 - Personal history of pulmonary embolism (ICD-10) History of giant cell arteritis (2016) ?Z86.79 - Personal history of other diseases of the circulatory system (ICD-10) Surgical History History of tympanostomy (1971) ?Z98.890 - Other specified postprocedural states (ICD-10) History of tonsillectomy (1947) ?Z90.89 - Acquired absence of other organs (ICD-10) History of section (1960) ?Z98.891 - History of uterine scar from previous surgery (ICD-10) History of bilateral cataract extraction (2020) ?Z98.41 - Cataract extraction status, right eye (ICD-10) ?Z98.42 - Cataract extraction status, left eye (ICD-10) History of appendectomy (1949) ?Z90.49 - Acquired absence of other specified parts of digestive tract (ICD-10) Family History Daughter Breast cancer Mother High blood pressure Father High blood pressure Social History (Updated 11/14/23 @ 12:52 by Marivel Puentes ~ [facility]) Narrative: She lives independently at [address]. Her daughter Emilia is healthcare power of employment law attorney. Her code status is full. She does not smoke. She does not drink alcohol. What is your current living situation?: I presently have a place to live Problems where you live: no known problems In the past 12 months, utilities in danger of being shut off: no In past 12 months, lack of transportation kept you from medical appts, meetings, work, or getting things needed for daily living: no In the past 12 mos, have been you worried that your food would run out before you had money to buy more?: never true In the past 12 mos, the food you bought just didn't last and you didn't have money to buy more?: never true Highest level of school completed/degree received: Bachelor's degree Smoking Status: Never smoker Do you use any of these nicotine containing products: None Second hand tobacco smoke exposure: No How often do you have a drink containing alcohol: never AUDIT-C Alcohol total score: 0 Non-prescribed substance use: denies use Caffeine: No How often does anyone, including family, friends and others, physically hurt you: never How often does anyone, including family, friends and others, insult or talk down to you: never How often does anyone, including family, friends and others, threaten you with harm: never How often does anyone, including family, friends and others, scream or curse at you: never service: No Exam Narrative: Exam Narrative: EXAM GENERAL: Patient appears comfortable and well. EYES: No scleral icterus. LYMPH: No supraclavicular or cervical lymphadenopathy. SKIN: Visible skin seen during exam normal or with benign process only. EXT: No dependent lower extremity pedal edema. HEART: Regular rate with prostatic aortic valve noted. LUNGS: Clear to auscultation bilaterally with no crackles or wheezes. ABD: Soft, non tender, non distended. PSYCH: Good eye contact, speech is not pressured. Const: Vital Signs, click to edit/add: Vital Signs - 24 hr 09/06/24 08:53 Temperature 97.7 F Pulse Rate [Pulse Oximeter] 84 Respiratory Rate 16 Blood Pressure [Ri ght Upper Arm] 126/62 Pulse Oximetry 98 Course Course ED Course: Patient seen examined. INR and UA pending. Vital Signs Vital signs: Initial Vital Signs Temperature 97.7 F 09/06/24 08:53 Temperature Source Temporal Artery Scan 09/06/24 08:53 Pulse Rate 84 09/06/24 08:53 Respiratory Rate 16 09/06/24 08:53 Blood Pressure 126/62 09/06/24 08:53 Blood Pressure Mean 83 09/06/24 08:53 Blood Pressure Position Sitting 09/06/24 08:53 Pulse Oximetry 98 09/06/24 08:53 Vital Signs Temperature 97.7 F 09/06/24 08:53 Pulse Rate 84 09/06/24 08:53 Respiratory Rate 16 09/06/24 08:53 Blood Pressure 126/62 09/06/24 08:53 Pulse Oximetry 98 09/06/24 08:53 Temperature 97.7 F 09/06/24 08:53 Pulse Rate 84 09/06/24 08:53 Respiratory Rate 16 09/06/24 08:53 Blood Pressure 126/62 09/06/24 08:53 Pulse Oximetry 98 09/06/24 08:53 MDM - Female Genitourinary MDM Narrative Medical decision making narrative: Patient presents with hematuria and signs of infection. I did do a thorough workup and find no other pathology other than her INR is 3.94. Her goal is between 2.5 in 3.5. Her urine will be sent for culture and she does not tolerate sulfa so I put her on a course of ciprofloxacin. She will hold her Coumadin today and tomorrow and will resume at a dose of 6 mg daily which is a slight reduction from her previous. She will see her primary this coming week with repeat INR. All questions were answered. If her bleeding persists would recommend full hematuria workup. Lab Data Labs: Lab Results 09/06/24 09/06/24 Range/Units 08:55 09:20 INR 3.94 H (0.91-1.10) Urine Color Red A (Yellow) Urine Appearance Cloudy A (Clear) Urine pH 6.5 (5.0-8.5) Ur Specific Forman >= 1.030 (1.000-1.030) Urine Protein 3+ A (Negative) Urine Glucose (UA) Negative (Negative) Urine Ketones Trace A (Negative) Urine Blood 3+ A (Negative) Urine Nitrite Negative (Negative) Urine Bilirubin 1+ A (Negative) Urine Urobilinogen 0.2 (0.2-1.0) Ur Leukocyte Esterase Trace A (Negative) Urine RBC >100 A (0-2) Urine WBC 10-25 A (0-5) Ur Squamous Epith Cells Moderate A (None-Few) Urine Bacteria None (None) Discharge Plan Discharge Clinical Impression: Urinary tract infection Patient Disposition: Home, Self-Care Condition: Stable Instructions: Urinary Tract Infection in Older Adults (ED) Additional Instructions: Brandyro as directed Hold Coumadin for 2 days. Resume Coumadin at 2 tablets daily starting on Monday. Follow-up with your doctor this coming week to repeat INR. Activity Level: No Restrictions Discharge Diet: Regular Prescriptions: New ciprofloxacin HCl [Cipro] 250 mg tablet 250 mg PO BID Qty: 10 0RF No Action calcium carbonate-vitamin D3 [Calcium 600 with Vitamin D3] 600 mg-12.5 mcg (500 unit) capsule PO DAILY rosuvastatin 20 mg tablet 20 mg PO QDAY Qty: 90 3RF melatonin 3 mg capsule 3 - 6 mg PO HS PRN ascorbic acid (vitamin C) 500 mg tablet 500 mg PO QDAY tramadol 50 mg tablet 50 mg PO BID PRN (Reason: pain) Qty: 7 1RF aspirin 81 mg tablet,delayed release (DR/EC) 81 mg PO DAILY timolol maleate 0.5 % drops 1 drp ophthalmic (eye) DAILY Patient Comments: left eye losartan 50 mg tablet 50 mg PO BID Qty: 180 3RF carvedilol 3.125 mg tablet 6.25 mg PO BID Qty: 360 3RF warfarin 3 mg tablet 6 mg PO QDAY Qty: 180 1RF Protocol: Dose Management Condition: Monday (Week One) Dose/Route: 6 mg Instruction: 2 x 3 mg tablets Condition: Monday Dose/Route: 12 mg Instruction: 4 x 3 mg tablets Condition: Monday Dose/Route: 6 mg Instruction: 2 x 3 mg tablets Condition: Monday Dose/Route: 0 mg Instruction: 0 tablets Condition: Dose/Route: 0 mg Instruction: 0 tablets Condition: Monday Dose/Route: 6 mg Instruction: 2 x 3 mg tablets Condition: Monday Dose/Route: 6 mg Instruction: 2 x 3 mg tablets Condition: Monday (Week Two) Dose/Route: 6 mg Instruction: 2 x 3 mg tablets Condition: Monday Dose/Route: 12 mg Instruction: 4 x 3 mg tablets Condition: Monday Dose/Route: 6 mg Instruction: 2 x 3 mg tablets Condition: Monday Dose/Route: 6 mg Instruction: 2 x 3 mg tablets Condition: Dose/Route: 6 mg Instruction: 2 x 3 mg tablets Condition: Monday Dose/Route: 6 mg Instruction: 2 x 3 mg tablets Condition: Monday Dose/Route: 6 mg Instruction: 2 x 3 mg tablets Protocol Text: Adjustment Start Date: 12/04/24 INR Value: 4.34 INR Date: 06/18/24 Recheck Date: 07/03/24 Rx Instructions: 12mg on Mondays, 6mg ROW amoxicillin 500 mg capsule 2,000 mg PO ONCE Qty: 4 0RF Rx Instructions: 1 hour prior to dental appointment Follow Up/Referrals: Neema Koenig MD [Primary Care Provider] - Stand Alone Forms: [facility] Info Instructions
[2024-09-06 09:14] LABS: Appearance Urine Cloudy (Clear); Bilirubin Urine 1+ (Negative); Blood Urine 3+ (Negative); Color Urine Red (Yellow); Glucose Urine Negative (Negative); Ketones Urine Trace (Negative); Leukocyte Esterase Urine Trace (Negative); Nitrite Urine Negative (Negative); Protein Urine 3+ (Negative); Specific Gravity Urine >= 1.030 (1.000-1.030); Urobilinogen Urine 0.2 (0.2-1.0); pH Urine 6.5 (5.0-8.5)
--- OUTSIDE RECORDS SUMMARY | 2024-09-06 09:17 | XMS_ITS | Clinical Summary ---
Author Organization [facility] Address [address] [place] [address] Care Team Providers Care Bale Coverer Name Role Phone Megan Dong MD Unavailable [phone] Estephania Lozano AuD Unavailable Neema Koenig MD Primary Care Provider Val Broderick AuD Unavailable [phone] Lakia Romero AuD Unavailable [phone] Allergies Active Allergy Reactions Criticality Noted Date [...] HM ORDERS 1937 DEXA 1937 LIPID 1937 Pneumococcal Vaccine: 50+ Years (1 of 1 - PCV) 12/24/1987 ZOSTER IMMUNIZATION (1 of 2) 12/24/1987 FALL RISK ASSESSMENT 2002 MEDICARE ANNUAL WELLNESS VISIT 2002 RSV VACCINE (1 - 1-dose 75+ series) 2012 COVID-19 Vaccine ( season) 2024 03/08/2022, 04/20/2021, 09/12/2020, Additional history exists INFLUENZA VACCINE (#1) 2024 , 05/02/2021, 06/29/2020, Additional history exists PHQ-2 (once per calendar year) 2024 11/29/2022 DTAP/TDAP/TD IMMUNIZATION (2 - Td or Tdap) 04/23/2031 04/23/2021 HPV IMMUNIZATION Aged Out No longer e ligible based on patient's age to complete this topic MENINGITIS IMMUNIZATION Aged Out No l onger eligible based on patient's age to complete this topic Insurance UCARE MEDICARE Care Teams Bale Coverer Relationship Specialty Start Date End Date Neema Koenig MD [facility] [address] [place] [address] PCP - General Internal Medicine 07/19/22 Megan Dong MD [address] [place] [address] [id number] Otolaryngology 07/06/22 Estephania Lozano AuD [address] [place] [address] [id number] Director Of Consulting Services Audiology 07/06/22 Val Broderick AuD [address] [place] [address] [phone] Director Of Consulting Services Audiology 07/19/22 Lakia Romero AuD [address] [place] [address] [phone] Director Of Consulting Services Audiology 09/26/22
--- OUTSIDE RECORDS SUMMARY | 2024-09-06 09:17 | XMS_ITS ---
Author Organization [facility] Address Unknown Allergies, Adverse Reactions, Alerts Substance Reaction Status Noted Date Resolved Date Influenza Vaccines active 06/05/2020 Problems Problem Status Start Date End Date COVID-19 (Primary) (U07.1 - ICD-10-CM) ACTIVE OTHER VIRAL PNEUMONIA (J12.89 - ICD-10-CM) ACTIVE 06/05/2020 ESSENTIAL (PRIMARY) HYPERTENSION (I10 - ICD-10-CM) ACT JAROCHO 06/05/2020 MUSCLE WEAKNESS (GENERALIZED) (M62.81 - ICD-10-CM) ACT JAROCHO 06/05/2020 INSOMNIA, UNSPECIFIED (G47.00 - ICD-10-CM) ACTIVE 06/05/2020 ANXIETY DISORDER, UNSPECIFIED (F41.9 - ICD-10-CM) ACTI VE 06/05/2020 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 with no home health services [facility] 06/05/2020 04:08 pm EST - 06/25/2020 02:00 pm EST Immunizations Vaccine Date TB 2 Step Mantoux Skin Test 06/19/2020 1 0:58 pm EST TB 2 Step Mantoux Skin Test 06/05/2020 0 9:00 pm EST Social History
--- OUTSIDE RECORDS SUMMARY | 2024-09-06 09:17 | XMS_ITS | Clinical Summary ---
Author Organization [facility] Address [address] [place] [id number] Care Team Providers Care Address Change Clerk Name Role Phone Neema Koenig MD Primary Care Provider [phone] Fouzia Salinas Unavailable [phone] Allergies Active Allergy Reactions Criticality Noted Date Comments Lidocaine Other - Describe In Comment Field High 2016 Shakey Sulfa (Sulfonamide Antibiotics) Rash,Other - Describe In Comment Field Low 07/23/2005 Sleepy Medications ascorbic acid (VITAMIN C) 500 mg tablet Take 1 tablet by mouth once daily. 0 03/22/2011 Active Calcium-Cholecal ciferol, D3, (CALCIUM 500+D) 500 mg-10 mcg (400 unit) chewable tabletIndication s:Aortic valve stenosis, etiology of cardiac valve disease unspecified Chew 1 Tablet by mouth once daily. 0 12/29/2022 Active warfarin (COUMADIN) 3 mg tabletIndication s:Hypoattentuate d leaflet thickening (HALT) INR GOAL: 2.5-3.5 90 Tablet 03/16/2023 Active rosuvastatin (CRESTOR) 20 mg tablet Take 20 mg by mouth once daily with evening meal. 10/06/2023 Active aspirin (ECOTRIN) 81 mg enteric coated tabletIndication s:TIA (transient ischemic attack) Take 1 Tablet (81 mg) by mouth once daily with a meal. 90 Tablet 3 10/23/2023 Active carvediloL (COREG) 3.125 mg tabletIndication s:Hypertension, unspecified type Take 2 Tablets (6.25 mg) by mouth two times daily with meals. 12/07/2023 Active losartan (COZAAR) 25 mg tabletIndication s:Aortic valve insufficiency, etiology of cardiac valve disease unspecified,Hype rtension Take 2 Tablets (50 mg) by mouth two times daily. 12/07/2023 Active amLODIPine (NORVASC) 10 mg tabletIndication s:Hypertension Take 1 Tablet (10 mg) by mouth once daily. 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 Overview (10/05/2010): right ear Sensorineural hearing loss, unilateral 1 Overview (10/05/2010): left ear Encounters Date Type Department Care Team Description 09/04/2024 Telephone [facility] [address] [facility] [address] [place] [phone] Aditya Tapia PA Refill Request (Amlodipine) 08/14/2024 Orders Only [facility] [address] [facility] [address] [place] [phone] Fouzia Salinas <No scans attached> 07/30/2024 10:30 AM CHIEF CRNA Office Visit [facility] [address] [place] [address] [place] [phone] Aditya Tapia PA CV General Cardiology Est (GEN CARD FOLLOW UP /PAST DUE /NO TESTING ORDERED //I35.1 (ICD-10-CM) - Aortic valve insufficiency, etiology of cardiac valve disease unspecified /I10 (ICD-10-CM) - Hypertension, unspecified type /G45.9 (ICD-10-CM) - TIA (transient ischemic attack) //PCP: Neema Koenig MD/) 07/30/2024 Travel 07/23/2024 Telephone [facility] [address] [place] [address] [place] [phone] Aditya Tapia PA Refill Request (amlodpine) 06/25/2024 Telephone [facility] [address] [place] [place] [address] Aditya Tapia PA Cardiology Appointment from Last 3 Months Social History Tobacco Use Types Packs/Day Years Used Date Smoking Tobacco: Never Smokeless Tobacco: Never Tobacco Cessation:Counseling Given: Yes Alcohol Use Standard Drinks/Week Comments Never 0 (1 standard drink = 0.6 oz pur e alcohol) PHQ-2 Answer Date Recorded PHQ-2 TOTAL SCORE 0 01/19/2023 Comments Unknown Sex and Gender Information Value Date Recorded Sex Assigned at Not on file Legal Sex Female 7:07 AM CHIEF CRNA Gender Identity Not on file Sexual Orientation Not on file Obstetrics History Last Filed Vital Signs Vital Sign Reading Time Taken Comments Blood Pressure 148/66 07/30/2024 10:25 AM CHIEF CRNA Pulse 69 07/30/2024 10:25 AM CHIEF CRNA Temperature 36.8 C (98.2 F) 01/12/2023 9:14 AM CDT Respiratory Rate 18 01/19/2023 1:00 PM CDT Oxygen Saturation 98% 07/30/2024 10:25 AM CHIEF CRNA Inhaled Oxygen Concentration - - Weight 53.5 kg (118 lb) 07/30/2024 10:25 AM CHIEF CRNA Height 157.5 cm (5' 2.01) 07/30/2024 10:25 AM [facility] Body Mass Index 21.58 07/30/2024 10:25 AM CHIEF CRNA Plan of Treatment Upcoming Encounters Date Type Department Care Team (Late st Contact Info) Description 12/19/2024 8:00 AM CDT Appointment [facility] [address] [place] [address] 12/19/2024 9:30 AM CDT Appointment [facility] [address] [place] [address] 12/19/2024 12:15 PM CDT [facility] Research [facility] [address] [place] [phone] Nurse, [facility] Research 12/19/2024 1:00 PM CDT Office Visit [facility] [address] [place] [phone] Indra Magana MD [address] [facility] [address] [place] [address] Health Maintenance Due Date Last Done Comments Tdap 1948 Pneumococcal series for age 50+ (1 of 2 - PCV) 1956 Tetanus booster 1957 Zoster (shingles) series for age 50+ (1 of 2) 12/24/1987 DEXA/DXA scan for age 65+ 2002 Medicare Wellness for age 65+ 2002 RSV vaccine for adults or (1 - 1-dose 75+ series) 2012 Depression screening for age 12+ 01/20/2024 01/20/20 23 COVID-19 vaccine series ( season) 2024 11/14/2023, 04/21/2023, 03/08/2022 Influenza for age 65+ 03/17/2024 BMI (ht and wt on same day) for age 18+ 07/30/2025 07/30/2024, 12/28/2023, 10/23/2023, Additional history exists Insurance MEDICARE PART A HB ONLY [employer]ARE MEDICARE ADVANTAGE Advance Directives Documents on File Type Date Recorded Patient Security Escort Expl anation Healthcare Directive 06/14/2011 011 * Full Code (Latest Code Status on File) Date Activated Date Inactivated Comments 01/11/2023 10:22 AM 01/12/2023 3:28 PM Question Answer Comments Code Status Discussion: Discussed * Full Code Date Activated Date Inactivated Comments 09/13/2022 9:24 AM 09/13/2022 11:18 AM Question Answer Comments Code Status Discussion: Reviewed Preferences Care Teams Address Change Clerk Relationship Specialty Start Date End Date Neema Koenig MD PCP - General 12/02/09 Fouzia Salinas [address] [address] [place] [address] 06/28/24
[2024-09-06 09:29] LABS: RBC Urine >100 (0-2)
[2024-09-06 09:30] LABS: Squamous Epithelial Cell Urine Moderate (None-Few)
[2024-09-06 10:00] LABS: INR 3.94 (0.91-1.10); Prothrombin Time 39.9 Seconds
== END 2024-09-06 10:22 | disposition home or self-care (01) ==
PROVIDERS: Emergency Provider Internal Medicine; PCP Internal Medicine
DX: N39.0 Urinary tract infection, site not specified (principal)
CPT/HCPCS: 36415; 81001; 81003; 85610; 87086; 99283

== ENCOUNTER 2024-09-16 10:39 | Outpatient (CLI) | payer MEDICARE, SELFPAY | END 2024-09-16 10:40 | disposition home or self-care (01) | LOC: NFLDREF 09-17 01:45 | PROVIDERS: PCP Internal Medicine; Referring Provider Internal Medicine; Visit Provider Internal Medicine | DX: Z51.81 Encounter for therapeutic drug level monitoring (principal); Z79.01 Long term (current) use of anticoagulants; Z86.711 Personal history of pulmonary embolism | CPT/HCPCS: 85610 ==

== ENCOUNTER 2024-11-04 11:49 | Outpatient (CLI) | payer MEDICARE, SELFPAY | END 2024-11-04 11:50 | disposition home or self-care (01) | PROVIDERS: PCP Internal Medicine; Referring Provider Internal Medicine; Visit Provider Internal Medicine | DX: I10 Essential (primary) hypertension (principal); R53.81 Other malaise; R53.83 Other fatigue; Z95.2 Presence of prosthetic heart valve; Z86.718 Personal history of other venous thrombosis and embolism; Z79.01 Long term (current) use of anticoagulants; Z13.21 Encounter for screening for nutritional disorder | CPT/HCPCS: 80053; 82550; 82607; 82728; 84443; 85610 ==

== ENCOUNTER 2024-11-22 13:35 | Outpatient (CLI) | payer MEDICARE, SELFPAY | END 2024-11-22 13:36 | disposition home or self-care (01) | LOC: NFLDUCREF 13:37 | PROVIDERS: PCP Internal Medicine; Visit Provider Nurse Practitioner Family | DX: R35.0 Frequency of micturition (principal); N30.01 Acute cystitis with hematuria; Z79.01 Long term (current) use of anticoagulants | CPT/HCPCS: 85610; 87086 ==

== ENCOUNTER 2024-11-26 09:25 | Outpatient (CLI) | payer MEDICARE, SELFPAY | END 2024-11-26 09:26 | disposition home or self-care (01) | LOC: NFLDREF 12-04 00:16 | PROVIDERS: PCP Internal Medicine; Referring Provider Internal Medicine; Visit Provider Nurse Practitioner Family | DX: I10 Essential (primary) hypertension (principal); E78.5 Hyperlipidemia, unspecified; M81.0 Age-related osteoporosis without current pathological fracture; R79.1 Abnormal coagulation profile; Z79.01 Long term (current) use of anticoagulants; Z51.81 Encounter for therapeutic drug level monitoring | CPT/HCPCS: 80048; 80061; 82306; 85610 ==